=== PATIENT | male | born 1975 | race Caucasian/White ===

== ENCOUNTER 2024-11-03 21:34 | Emergency (ER) | payer OTHER, SELFPAY ==
[2024-11-03 21:37] VITALS: BP 147/87; PULSE 96; RESP 18; TEMP 36.8; O2SAT 96; BMI 33.7
[2024-11-03 21:58] LABS: Glucose, Whole Blood 364 mg/dL (60-115)
[2024-11-03 22:05] LABS: MANUAL DIFF FLAG NO
[2024-11-03 22:06] LABS: Basophils Absolute Auto 0.1 X10*3/uL (0.0-0.2); Basophils Percent Auto 0.6 % (0-2); Eosinophils Absolute Auto 0.1 X10*3/uL (0.0-0.4); Eosinophils Percent Auto 1.5 % (0-4); Hematocrit 45.9 % (42.0-52.0); Hemoglobin 16.8 g/dl (14.0-18.0); Imm Gran Abs Auto 0.03 X10*3/uL (0.00-0.03); Imm Gran Pct Auto 0.3 % (0.0-0.4); Lymphocytes Absolute Auto 3.6 X10*3/uL (1.2-4.9); Lymphocytes Percent Auto 38.2 % (20-40); Mean Corpuscular HGB Conc 36.6 g/dl (31.0-36.0); Mean Corpuscular Hemoglobin 30.9 pg (27.0-33.0); Mean Corpuscular Volume 84.4 fL (80.0-98.0); Mean Platelet Volume 9.5 fL (9.4-12.4); Monocytes Absolute Auto 1.2 X10*3/uL (0.1-1.2); Monocytes Percent Auto 12.7 % (2-11); Neutrophils Absolute Auto 4.5 x10*3/uL (2.0-8.3); Neutrophils Percent Auto 46.7 % (45-73); Platelet Count 395 X10*3/uL (160-400); Red Blood Count 5.44 X10*6/uL (4.60-5.80); Red Cell Distribution Width 12.4 % (11.0-16.0); White Blood Count 9.5 X10*3/uL (4.8-10.8)
[2024-11-03 22:11] VITALS: BP 134/89; PULSE 87; RESP 13; TEMP 36.7; O2SAT 95
[2024-11-03 22:17] LABS: Appearance Urine Clear; Color Urine Yellow; Glucose Urine UA >=1000 mg/dL (Negative); Leukocyte Esterase Urine Negative (Negative); Nitrite Urine Negative (Negative); Specific Gravity - Urine >= 1.030 (1.005-1.025); UMIC TRIGGER UACC YES; Urine Blood Negative (Negative); Urine Ketones Negative (Negative); Urine Protein Negative (Neg-Trace)
--- NOTE | 2024-11-03 22:20 | ED_ITS ---
HPI - General Adult General Chief complaint: Recheck/Abnormal Lab/Rx Stated complaint: High blood sugar over 400, drinking alcohol Time Seen by Provider: 11/03/24 22:10 History of Present Illness ED Provider: Dr. Mitchell HPI narrative: 49 y/o M patient; PMH T2DM, alcohol use disorder, bipolar disorder; presents from home reporting recent alcohol overuse. The patient states he tried to detox at home over the last 6 hours but has not been able to. He endorses a significant number of recent life stressors but denies suicidal or homicidal ideation. Related Data Home Medications ?Medication ?Instructions ?Recorded ?Confirmed albuterol sulfate 90 mcg/actuation inhalation 11/04/24 aerosol inhaler atorvastatin 20 mg tablet 20 mg PO DAILY 11/04/24 11/04/24 empagliflozin 10 mg tablet 10 mg PO DAILY 11/04/24 11/04/24 (Jardiance) escitalopram oxalate 20 mg tablet 20 mg PO DAILY 11/04/24 11/04/24 fluticasone 250 mcg-salmeterol 50 1 ea inhalation BID 11/04/24 11/04/24 mcg/dose blistr powdr for inhalation insulin glargine 100 unit/mL (3 unit subcut 11/04/24 mL) subcutaneous pen (Basaglar KwikPen U-100 Insulin) lisinopril 20 mg tablet 20 mg PO DAILY 11/04/24 11/04/24 metoprolol succinate 100 mg 100 mg PO DAILY 11/04/24 11/04/24 tablet,extended release 24 hr Allergies Allergy/AdvReac Type Severity Reaction Status Date / Time Iodinated Contrast Media AdvReac Rash Verified 11/03/24 21:44 [Contrast Dye] Review of Systems 2 Review of Systems: Yes all other systems are reviewed and are negative [facility] Past Medical History Attestation statement: The following information was validated with the patient. Source: unable to obtain Social History Social History Alcohol intake: current Alcohol intake frequency: 3 or more drinks per day Alcohol type: beer and hard liquor Smoked in Last 30 Days: No Use of substances other than those prescribed or required for medical reasons: No Advance Directives: No Advance Directives Information Provided: Yes Physical Exam ED Vital Signs: Vital Signs - 24 hr 11/03/24 21:37 11/03/24 22:11 11/04/24 00:00 Temperature 98.3 F 98.1 F 98.1 F Pulse Rate 96 87 79 Respiratory Rate 18 13 14 Blood Pressure 147/87 H 134/89 127/73 Pulse Oximetry 96 95 99 Oxygen Delivery Method Room Air Room Air Room Air 11/04/24 01:42 Temperature 98.1 F Pulse Rate 85 Respiratory Rate 12 Blood Pressure 117/63 Pulse Oximetry 95 Oxygen Delivery Method Room Air BMI result Body Mass Index 33.7 Patient is afebrile, normotensive and hemodynamically stable. Const General: cooperative HENMT Head: Yes normal to inspection and Yes atraumatic Eyes General: appearance normal, both eyes and all related structures Pupils: Equal, round and reactive pupils present EOM: EOMs intact bilaterally Neck Neck: Yes normal visual inspection, Yes full ROM, Yes supple and No tender Chest Chest palpation & inspection: normal inspection of the chest and normal palpation of entire chest wall Resp Effort & Inspection: normal respiratory effort, able to speak in complete sentences, no cough and no respiratory distress Auscultation: clear to auscultation bilaterally Cardio Rate: regular rate Rhythm: regular rhythm Peripheral pulses: Peripheral pulses 2+ throughout GI Inspection: Yes normal to inspection, No Abdominal wall edema and No distended Palpation (GI): Soft to palpation, not firm, nontender, no guarding and not rigid Auscultation: normal bowel sounds Back/Spine/Pelvis Back: No back tenderness Neuro Cranial nerves: Yes Equal, round and reactive pupils present Course Course Course Narrative: Patient is afebrile and hemodynamically stable. Will obtain crisis laboratory studies as well as studies to assess for T2DM complications such as HHS/DKA. Labs reviewed. No leukocytosis. Bicarb 18. Anion gap 21. Glucose 364. Transaminitis. UA without ketones, + glucouria. Utox negative. Betahydroxybuterate is within acceptable limits. Ethanol 208. Placed on CIWA. Initial CIWA 11. Patient is demonstrating hyperglycemia likely 2/2 to dehydration and alcohol use, no evidence of DKA or HHS. Provided 2L IVF. Started on high dose thiamine and multivitamin. Provided librium. Reevaluation(s) Reevaluation #1: Provided 2nd dose of librium approx 1 hour after 1st. Glucose checked after 2L IVF, improved appropriately to 201. Provided 3rd L IVF. BMP repeated after 2L IVF, anion gap improved to 17. Diet ordered. Patient's home medications ordered. Plan: Transition care to Dr. Mattson pending continued improvement in condition Condition: Stable Medications Administered Discontinued Medications Generic Name Dose Route Start Last Admin Trade Name Miki PRN Reason Stop Dose Admin Chlordiazepoxide HCl 50 mg 11/03/24 22:28 11/03/24 22:54 Chlordiazepoxide Hcl 25 Mg Capsule PO 11/03/24 22:29 50 mg ONCE ONE Administration Chlordiazepoxide HCl 50 mg 11/03/24 23:38 11/03/24 23:52 Chlordiazepoxide Hcl 25 Mg Capsule PO 11/03/24 23:39 50 mg ONCE ONE Administration Sodium Chloride 1,000 mls @ 999 mls/hr 11/03/24 22:15 11/03/24 23:58 Ns IV 11/03/24 23:15 Infused .Q1H1M TRACY Infusion Sodium Chloride 1,000 mls @ 999 mls/hr 11/03/24 22:15 11/03/24 23:59 Ns IV 11/03/24 23:15 Infused .Q1H1M TRACY Infusion Thiamine HCl 500 mg/ Sodium 105 mls @ 210 mls/hr 11/03/24 22:23 11/03/24 23:00 Chloride IV 11/03/24 22:52 Infused ONCE ONE Infusion Sodium Chloride 1,000 mls @ 999 mls/hr 11/04/24 00:15 11/04/24 01:42 Ns IV 11/04/24 01:15 Infused .Q1H1M TRACY Infusion Multivitamins/Vitamin C 1 tab 11/03/24 22:28 11/03/24 22:54 Multivitamin Tablet PO 11/03/24 22:29 1 tab ONCE ONE Administration Ondansetron HCl 4 mg 11/03/24 22:25 11/03/24 22:29 Ondansetron Hcl 4 Mg/2 Ml Vial IVPUSH 11/03/24 22:26 4 mg ONCE ONE Administration Medical Decision Making Medical Decision Making MDM Narrative: Patient has refused to stay in the ER anion gap closed taking p.o. fluids will discharge patient home Lab Data 11/03/24 22:00 11/04/24 00:27 Labs: Lab Results 11/03/24 11/03/24 11/03/24 Range/Units 21:54 22:00 22:11 WBC 9.5 (4.8-10.8) X10*3/uL RBC 5.44 (4.60-5.80) X10*6/uL Hgb 16.8 (14.0-18.0) g/dl Hct 45.9 (42.0-52.0) % MCV 84.4 (80.0-98.0) fL MCH 30.9 (27.0-33.0) pg MCHC 36.6 H (31.0-36.0) g/dl RDW 12.4 (11.0-16.0) % Plt Count 395 (160-400) X10*3/uL MPV 9.5 (9.4-12.4) fL Immature Gran % (Auto) 0.3 (0.0-0.4) % Neut % (Auto) 46.7 (45-73) % Lymph % (Auto) 38.2 (20-40) % Morrill % (Auto) 12.7 H (2-11) % Eos % (Auto) 1.5 (0-4) % Baso % (Auto) 0.6 (0-2) % Lymph # (Auto) 3.6 (1.2-4.9) X10*3/uL [place]rill # (Auto) 1.2 (0.1-1.2) X10*3/uL Eos # (Auto) 0.1 (0.0-0.4) X10*3/uL Baso # (Auto) 0.1 (0.0-0.2) X10*3/uL Abs Immat Gran (auto) 0.03 (0.00-0.03) X10*3/uL Absolute Neuts (auto) 4.5 (2.0-8.3) x10*3/uL Absolute Nucleated RBC 0.000 (0.0-0.012) X10*3/uL Nucleated RBC % (auto) 0.0 (0.0-0.2) /100WBC Sodium 131 L (135-145) mmol/L Potassium 4.5 (3.3-5.1) mmol/L Chloride 97 (96-108) mmol/L Carbon Dioxide 18 L (22-29) mmol/L Anion Gap 21 H (12-20) BUN 8 L (9-16) mg/dL Creatinine 0.95 (0.5-1.4) mg/dL Estim Creat Clear Calc 135.5 Estimated GFR > 60 POC Glucose 364 H* (60-115) mg/dL Random Glucose 346 H (60-115) mg/dL Calcium 8.8 (8.4-10.2) mg/dL Magnesium 2.1 (1.6-2.6) mg/dL Total Bilirubin 2.3 H (0.0-1.0) mg/dL AST 45 H (5-37) U/L ALT 63 H (0-40) U/L Alkaline Phosphatase 95 (39-117) U/L Total Protein 7.6 (6.5-8.0) g/dL Albumin 4.4 (3.5-5.0) g/dL Lipase 23 (8-78) U/L Beta-Hydroxybutyrate 0.18 (0.02-0.27) mmol/L Urine Color Yellow Urine Appearance Clear Urine pH 6.0 (5.0-9.0) Ur Specific [place] >= 1.030 H (1.005-1.025) Urine Protein Negative (Neg-Trace) mg/dL Urine Glucose (UA) >=1000 H (Negative) mg/dL Urine Ketones Negative (Negative) mg/dL Urine Blood Negative (Negative) Urine Nitrite Negative (Negative) Ur Leukocyte Esterase Negative (Negative) Urine RBC 0-2 (0-2) /HPF Urine WBC 0-5 (0-5) /HPF Ur Squamous Epith Cells 0-2 (0-2) /HPF Urine Bacteria None Seen (None Seen) Hyaline Casts 0-2 (0-2) /LPF Urine Opiates Screen Not Detected (Not Detect) Ur Buprenorphine Scrn Not Detected (Not Detect) ng/mL Ur Oxycodone Screen Not Detected (Not Detect) ng/mL Urine Methadone Screen Not Detected (Not Detect) ng/mL Urine Fentanyl Screen Not Detected (Not Detect) Ur Barbiturates Screen Not Detected (Not Detect) Ur Phencyclidine Scrn Not Detected (Not Detect) Ur Amphetamines Screen Not Detected (Not Detect) U Benzodiazepines Scrn Not Detected (Not Detect) Urine Cocaine Screen Not Detected (Not Detect) U Marijuana (THC) Screen Not Detected (Not Detect) Ethyl Alcohol 208 mg/dL 11/03/24 11/04/24 Range/Units 23:56 00:27 WBC (4.8-10.8) X10*3/uL RBC (4.60-5.80) X10*6/uL Hgb (14.0-18.0) g/dl Hct (42.0-52.0) % MCV (80.0-98.0) fL MCH (27.0-33.0) pg MCHC (31.0-36.0) g/dl RDW (11.0-16.0) % Plt Count (160-400) X10*3/uL MPV (9.4-12.4) fL Immature Gran % (Auto) (0.0-0.4) % Neut % (Auto) (45-73) % Lymph % (Auto) (20-40) % [place] % (Auto) (2-11) % Eos % (Auto) (0-4) % Baso % (Auto) (0-2) % Lymph # (Auto) (1.2-4.9) X10*3/uL [place] # (Auto) (0.1-1.2) X10*3/uL Eos # (Auto) (0.0-0.4) X10*3/uL Baso # (Auto) (0.0-0.2) X10*3/uL Abs Immat Gran (auto) (0.00-0.03) X10*3/uL Absolute Neuts (auto) (2.0-8.3) x10*3/uL Absolute Nucleated RBC (0.0-0.012) X10*3/uL Nucleated RBC % (auto) (0.0-0.2) /100WBC Sodium 133 L (135-145) mmol/L Potassium 4.7 (3.3-5.1) mmol/L Chloride 102 (96-108) mmol/L Carbon Dioxide 19 L (22-29) mmol/L Anion Gap 17 (12-20) BUN 8 L (9-16) mg/dL Creatinine 0.78 (0.5-1.4) mg/dL Estim Creat Clear Calc 165.0 Estimated GFR > 60 POC Glucose 201 H (60-115) mg/dL Random Glucose 203 H (60-115) mg/dL Calcium 8.2 L D (8.4-10.2) mg/dL Magnesium (1.6-2.6) mg/dL Total Bilirubin (0.0-1.0) mg/dL AST (5-37) U/L ALT (0-40) U/L Alkaline Phosphatase (39-117) U/L Total Protein (6.5-8.0) g/dL Albumin (3.5-5.0) g/dL Lipase (8-78) U/L Beta-Hydroxybutyrate (0.02-0.27) mmol/L Urine Color Urine Appearance Urine pH (5.0-9.0) Ur Specific [place] (1.005-1.025) Urine Protein (Neg-Trace) mg/dL Urine Glucose (UA) (Negative) mg/dL Urine Ketones (Negative) mg/dL Urine Blood (Negative) Urine Nitrite (Negative) Ur Leukocyte Esterase (Negative) Urine RBC (0-2) /HPF Urine WBC (0-5) /HPF Ur Squamous Epith Cells (0-2) /HPF Urine Bacteria (None Seen) Hyaline Casts (0-2) /LPF Urine Opiates Screen (Not Detect) Ur Buprenorphine Scrn (Not Detect) ng/mL Ur Oxycodone Screen (Not Detect) ng/mL Urine Methadone Screen (Not Detect) ng/mL Urine Fentanyl Screen (Not Detect) Ur Barbiturates Screen (Not Detect) Ur Phencyclidine Scrn (Not Detect) Ur Amphetamines Screen (Not Detect) U Benzodiazepines Scrn (Not Detect) Urine Cocaine Screen (Not Detect) U Marijuana (THC) Screen (Not Detect) Ethyl Alcohol mg/dL Independent Interpretation I performed an independent interpretation of an: EKG Interpretation: NSR 91BPM with normal intervals, without ischemic changes Discharge Plan Discharge Clinical Impression: Hyperglycemia, Alcohol intoxication Patient Disposition: Home, Self-Care Instructions: Alcohol Withdrawal (DC) Additional Instructions: Stop drinking alcohol Follow with detox Prescriptions: No Action fluticasone propion-salmeterol 250-50 mcg/dose blister with device 1 ea inhalation BID atorvastatin 20 mg tablet 20 mg PO DAILY lisinopril 20 mg tablet 20 mg PO DAILY metoprolol succinate 100 mg tablet extended release 24 hr 100 mg PO DAILY albuterol sulfate 90 mcg/actuation HFA aerosol inhaler inhalation escitalopram oxalate 20 mg tablet 20 mg PO DAILY insulin glargine [Basaglar KwikPen U-100 Insulin] 100 unit/mL (3 mL) insulin pen subcut Jardiance 10 mg tablet 10 mg PO DAILY Print Language: Belarusian
[2024-11-03 22:22] LABS: Alanine Aminotransferase 63 U/L (0-40); Albumin Level 4.4 g/dL (3.5-5.0); Alkaline Phosphatase 95 U/L (39-117); Anion Gap 21 (12-20); Aspartate Amino Transferase 45 U/L (5-37); Bilirubin Total 2.3 mg/dL (0.0-1.0); Blood Urea Nitrogen 8 mg/dL (9-16); Calcium 8.8 mg/dL (8.4-10.2); Carbon Dioxide 18 mmol/L (22-29); Chloride 97 mmol/L (96-108); Creatinine Clr Calc Pharmacy 135.5; Estimated Glomerular Filt Rate > 60; Ethanol 208 mg/dL; Glucose Random 346 mg/dL (60-115); Potassium 4.5 mmol/L (3.3-5.1); Sodium 131 mmol/L (135-145); Total Protein 7.6 g/dL (6.5-8.0)
[2024-11-03 22:22] LABS: Bacteria Urine None Seen (None Seen); Hyaline Casts Urine 0-2 /LPF (0-2); RBC Urine 0-2 /HPF (0-2); Squamous Epithelial Cell Urine 0-2 /HPF (0-2); WBC Urine 0-5 /HPF (0-5)
[2024-11-03] MEDS: 0.9 % Sodium Chloride 1,000 ML 999 ML IV ×2 (22:23→22:24)
--- NOTE | 2024-11-03 22:25 | ECG_ITS ---
Test Reason : N/V, HIGH BLOOD SUGAR Blood Pressure : */* mmHG Vent. Rate : 91 BPM Atrial Rate : 91 BPM P-R Int : 156 ms QRS Dur : 76 ms QT Int : 366 ms P-R-T Axes : 47 -6 28 degrees QTcB Int : 450 ms Normal sinus rhythm Low voltage QRS Borderline ECG No previous ECGs available Referred By: Shreya Mitchell Electronically Signed By: Cole Cerda
[2024-11-03 22:27] LABS: Amphetamine Screen Urine Not Detected (Not Detect); Barbiturates, Urine Not Detected (Not Detect); Benzodiazepines Screen Urine Not Detected (Not Detect); Buprenorphine Scr Not Detected (Not Detect); Cannabinoid Screen Urine Not Detected (Not Detect); Cocaine Screen Urine Not Detected (Not Detect); Fentanyl, urine Not Detected (Not Detect); Methadone Screen, Urine Not Detected (Not Detect); Opiate Screen Urine Not Detected (Not Detect); Oxycodone Screen Urine Not Detected (Not Detect); Phencyclidine Screen Urine Not Detected (Not Detect)
[2024-11-03] MEDS: Thiamine HCL 500 MG in 0.9 % Sodium Chloride 100 ML 210 MG IV (22:29)
[2024-11-03] MEDS: ondansetron HCL 4 MG/2 ML VIAL IVPUSH (22:29)
[2024-11-03 22:42] LABS: Lipase 23 U/L (8-78); Magnesium 2.1 mg/dL (1.6-2.6)
[2024-11-03] MEDS: Multivitamin TABLET 1 TAB PO (22:54)
[2024-11-03] MEDS: chlordiazePOXIDE HCl 25 MG CAPSULE 50 MG PO ×2 (22:54→23:52)
[2024-11-03 23:16] LABS: Beta-Hydroxybutyrate 0.18 mmol/L (0.02-0.27)
[2024-11-04] VITALS: BP 127/73; PULSE 79; RESP 14; TEMP 36.7; O2SAT 99
[2024-11-04 00:11] LABS: Glucose, Whole Blood 201 mg/dL (60-115)
[2024-11-04] MEDS: 0.9 % Sodium Chloride 1,000 ML 999 ML IV (00:18)
[2024-11-04 00:51] LABS: Anion Gap 17 (12-20); Blood Urea Nitrogen 8 mg/dL (9-16); Calcium 8.2 mg/dL (8.4-10.2); Carbon Dioxide 19 mmol/L (22-29); Chloride 102 mmol/L (96-108); Estimated Glomerular Filt Rate > 60; Glucose Random 203 mg/dL (60-115); Potassium 4.7 mmol/L (3.3-5.1); Sodium 133 mmol/L (135-145)
--- OUTSIDE RECORDS SUMMARY | 2024-11-04 01:02 | XMS_ITS | Encounter Summary ---
Author Organization [facility] Address [address] [place] [address] Care Team Providers Care Money Market Clerk Name Role Phone Artie Grant MD Primary Care Provider [phone] Artie Grant MD Unavailable [phone] Reason for Visit * Reason Comments E-prescribing Refill Request Encounter Details Date Type Department Care Team (Late Contact Info) Description [address] [address] Artie Grant MD [address] [place] [phone] E-prescribing Refill Request Social History Tobacco Use Types Packs/Day Years Used Date Smoking Tobacco: Never Smokeless Tobacco: Never Alcohol Use Standard Drinks/Week Comments Yes 0 (1 standard drink = 0.6 oz pur e alcohol) Social PHQ-2 Answer Date Recorded PHQ-2 Score 0 09/11/2023 Sex and Gender Information Value Date Recorded Sex Assigned at Male 2024 10:17 AM EST Legal Sex Male 10:13 AM EST Gender Identity Male 2024 10:17 AM EST Sexual Orientation Straight 2024 10 :17 AM EST 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 documented as of this encounter Goals Goal Patient Goal Type Associated Problems Recent Progress Patient-Stated? Author Blood Pressure < 140/90 Blood Pressure 98/72(2024 8:44 AM EDT) Brenda Redd, RN Note: Above is your goal for blood pressure control. You may be able to prevent, reduce or eliminate the medication required for your blood pressure by regular measurement of your blood pressure at home, since home readings are often more reliable than measurements at the doctor? s office. You can also improve your blood pressure by getting regular exercise, keeping a normal weight, reducing your sodium/salt intake to 2000 mg/day, reducing caffeine and by limiting your alcohol intake. Men should limit consumption to no more than 2 drinks per day (beer, wine, or mixed drinks) and women should limit to one drink per day. Follow the DASH diet, a diet low in fat, cholesterol, red meat, and sweets. It emphasizes fruits, vegetables, and low-fat dairy foods. The DASH diet also includes whole-grain products, fish, poultry, and nuts. HEMOGLOBIN A1C % < 7 Result Component 6.1(07/11/19 7:28 AM EST) Brenda Redd, RN Note: Above is your goal for sugar control. Your risk for future diabetic complications such as blindness and amputation can be reduced by following your diabetic diet plan, and paying careful attention to self-monitoring your blood sugar and blood pressure at home. Please plan to check your blood sugar and blood pressure at the frequency suggested, and bring these numbers with you to your next scheduled visit. If you have difficulty reaching the goals which you have set for your diabetes your PCP can refer to one of our diabetes self-management support programs. A fasting blood sugar below 120 is ideal. documented as of this encounter Visit Diagnoses Not on filedocumented in this encounter Care Teams Money Market Clerk Relationship Specialty Start Date End Date Artie Grant MD [address] [place] [address] PCP - General 06/14/23 Artie Grant MD [address] [place] [address] PCP - Backup PCP Family Medicine 08/10/23 documented as of this encounter
--- OUTSIDE RECORDS SUMMARY | 2024-11-04 01:02 | XMS_ITS | Encounter Summary ---
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 on file Not on fi le documented as of this encounter Plan of Treatment Upcoming Encounters Date Type Department Care Team (Late st Contact Info) Description 04/09/2025 8:00 AM EDT Office Visit [facility] [address] [place] [phone] Artie Grant MD [address] [place] [address] Return for 6 month f/u [...] on filedocumented in this encounter Care Teams Physical Therapy Technician Relationship Specialty Start Date End Date Artie Grant MD [address] [place] [address] PCP - General 06/14/23 Artie Grant MD [address] [place] [phone] PCP - Backup PCP Family Medicine 08/10/23 documented as of this encounter
--- OUTSIDE RECORDS SUMMARY | 2024-11-04 01:02 | XMS_ITS | Encounter Summary ---
Author Organization [facility] Address [address] [place] [address] Care Team Providers Care Stock Control Clerk Name Role Phone Artie Grant MD Primary Care Provider [phone] Artie Grant MD Unavailable [phone] Reason for Visit * Reason Comments E-prescribing Refill Request Encounter Details Date Type Department Care Team (Late Contact Info) Description 10/30/2024 Refill [facility] [address] [place] [address] Artie Grant MD [address] [place] [address] E-prescribing Refill Request Social History Tobacco Use Types Packs/Day Years Used Date Smoking Tobacco: Never Smokeless Tobacco: Never Alcohol Use Standard Drinks/Week Comments Not Currently 0 (1 standard drink = 0.6 oz pur e alcohol) Social PHQ-2 Answer Date Recorded PHQ-2 Score 0 10/07/2024 PHQ-9 Answer Date Recorded PHQ-9 Score 0 10/07/2024 Sex and Gender Information Value Date Recorded Sex Assigned at Male 2024 10:17 AM EST Legal Sex Male 10:13 AM EST Gender Identity Male 2024 10:17 AM EST Sexual Orientation Straight 2024 10 :17 AM EST 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 on file Not on fi le documented as of this encounter Plan of Treatment Upcoming Encounters Date Type Department Care Team (Late Contact Info) Description 04/09/2025 8:00 AM EDT Office Visit [facility] [address] [place] [address] Artie Grant MD [address] [place] [phone] Return for 6 month f/u [...] documented as of this encounter Visit Diagnoses Diagnosis Moderate asthma, unspecified whether complicated, unspecified whether persistent (HHS) documented in this encounter Care Teams Stock Control Clerk Relationship Specialty Start Date End Date Artie Grant MD [address] [place] [phone] PCP - General 06/14/23 Artie Grant MD [address] [place] [phone] PCP - Backup PCP Family Medicine 08/10/23 documented as of this encounter
--- OUTSIDE RECORDS SUMMARY | 2024-11-04 01:02 | XMS_ITS | Encounter Summary ---
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
--- OUTSIDE RECORDS SUMMARY | 2024-11-04 01:02 | XMS_ITS | Continuity of Care Document ---
Author Organization [facility] Address [address] [place] [address] Phone Care Team Providers Care Cardiopulmonary Physical Therapist Name Role Phone Corrie Cheng DO Unavailable Unavailabl e Allergies, Adverse Reactions, Alerts Substance Reaction Status Criticality metformin Increased lactic acid level Active No Information HYDROXYZINE HCL Active No Informati on ioversol Active No Information Medications Medication Instructions Dosage Effective Dates (start - stop) Status Comments Ativan 1 mg tablet TAKE 1 TABLET BY MOUTH DAILY NEEDED - Active ADVAIR 250-50 DISKUS INHALE ONE PUFF BY MOUTH TWICE A DAY APPROXIMATELY 12 HOURS APART. TAKE AT THE SAME TIME EACH DAY. - Active ALBUTEROL HFA 90 MCG INHALER INHALE 1 PUFF BY MOUTH TWICE A DAY NEEDED - Active atorvastatin 20 mg tablet TAKE ONE TABLET BY MOUTH DAILY - Active metoprolol succinate ER 100 mg tablet,extended release 24 hr TAKE ONE TABLET BY MOUTH DAILY - Active lisinopril 20 mg tablet take 1 tablet by oral route every day 20 MG - Active Lexapro 20 mg tablet TAKE ONE TABLET BY MOUTH DAILY - Active Ozempic 1 mg/dose (4 mg/3 mL) subcutaneous pen injector inject (1MG) by subcutaneous route every week on the same day of each week 1 MG - Active aspirin 81 mg tablet,delayed release take 1 tablet by oral route every day 81 MG - Active Jardiance 25 mg tablet take 1 tablet by oral route every day in the morning 25 MG - Active Prilosec OTC 20 mg tablet,delayed release take 1 tablet by mouth once daily as needed for acid reflux - Active loratadine 10 mg disintegrating tablet take 1 tablet by oral route every day and place on top of the tongue where it will dissolve, then swallow 10 MG - Active VITAMIN D3 (unknown strength) Not Available - Active Procedures Procedure Date Offic/outpt E&m Estab Mod-hi 2 Venipuncture Immuniz Admin; 1/combo Vacc/to Flu Vac-Quadrivalent Preservative Free 0 .5ml/dose Hgb; Glycated Comp Metabolic Panel Vitamin D 25 Hydroxy Includes Fraction(s ) If Performed Offic/outpt E&m Estab Mod-hi 2 Venipuncture Hgb; Glycated Lipid Panel Albumin; Urin Microalbumin Porter Creatinine; Other Source Ua Dip Stick/tablet; Auto W/mi General Health Panel Venipuncture Init Preven E&m New Pt; 40-64 Yr 2022 Hgb; Glycated Albumin; Urin Microalbumin Porter Creatinine; Other Source Lipid Panel General Health Panel Offic/outpt E&m Estab Mod-ut 4 Venipuncture Offic/outpt E&m Estab Mod-hi 2 Hgb; Glycated Vitamin D 25 Hydroxy Includes Fraction(s ) If Performed Lipid Panel Comp Metabolic Panel Offic/outpt E&m Estab Mod-hi 2 Offic/outpt E&m Estab Mod-hi 2 Telemedic ine Offic/outpt E&m Estab Mod-hi 2 22 Venipuncture Hgb; Glycated Albumin; Urin Microalbumin Porter 22 Creatinine; Other Source Lipid Panel Comp Metabolic Panel Bld Ct; Hg/pltlt Ct Auto/compl Thyroid Stim Hormone Immuniz Admin; 1/combo Vacc/to 21 Flu Vac-Quadrivalent Preservative Free 0 .5ml/dose Offic/outpt E&m New Mod-hi 60 1 Venipuncture Vitamin D 25 Hydroxy Includes Fraction(s ) If Performed Folic Acid; Serum Offic/outpt E&m Estab Mod-hi 2 12 General Health Panel Lipid Panel Ua Dip Stick/tablet; Auto W/mi 12 Cyanocobalamin General Health Panel Offic/outpt E&m New Mod-hi 45 2 Advance Directives Directive Yes / No Effective Date File Name No Information Encounters Encounter Description Practice Location Reason(s) For Visit Diagnoses Date Provider Providers Copied on Encounter [facility], [address], [place], [place], [id number] , [place] tel: [phone] [facility] Type 2 diabetes mellitus with other specified complication, unspecified whether halfway insulin use 4 Prosper [place]. [address], [address] [facility], [place], [place], [id number], [place]. tel:[phone] [facility], [address], [place], [place], [id number] , [place] tel: [phone] [facility] No Information 3 Prosper [place]. [address], [address] [facility], [place], [place], [address], [place]. tel:[phone] Medical [facility], [address], [place], [place], [id number] , [place] tel: [phone] [facility] No Information 3 Prosper [place]. [address], [place] [address], [place], [place], [id number], [place]. [phone] Offic/outpt E&m Estab Mod-hi 2 Medical [facility], [address], [place], [place], [id number] , [place] tel: [phone] [facility] med refill (chief complaint) HTN (hypertension), benignControlled type 2 diabetes mellitus with hypoglycemia, without long-term current use of insulinAnxietyVit snow D deficiencyEncntr for general adult medical exam w/o abnormal findings 3 Prosper [place]. [address], [address], [id number], [place]. [phone] Referring Provider: Corrie Cheng, [address] [address], [place], [address]. tel:[phone] [facility], [address], [place], [place], [id number] , [place] tel: [phone] [facility] No Information Mar- 3 Sacha Crespo. [address] [place] [address], [place] [address] [place] [address], [id number], [place]. tel:[phone] [facility], [address], [place], [place], [id number] , [place] tel: [phone] [facility] No Information 0 3 Prosper [place]. [address], [address], [id number], [place]. tel:[phone] [facility], [address], [place], [place], [address] , [place] tel: [phone] [facility] No Information 0 3 Prosper [place]. [address], [address], [place], [place], [id number], [place]. tel:[phone] Medical [facility], [address], [place], [id number] , [place] tel: [phone] [facility] No Information Gilberto-2 3 Prosper [place]. [address], [place] [address], [place], [place], [address], [place]. [phone] Offic/outpt E&m Estab Mod-hi 2 Medical [facility], [address], [place], [address] , [place] tel: [phone] [facility] 3 months F/U (chief complaint) Type 2 diabetes mellitus with other specified complication, unspecified whether halfway insulin useHTN (hypertension), benignAnxietyExtr insic asthma, unspecified asthma severity, unspecified whether complicated, unspecified whether persistent 3 Prosper [place]. [address], [address] [facility], [place], [place], [id number], [place]. [phone] Referring Provider: Corrie Cheng, [address] [place] [address], [place], [address]. tel:[phone] Init Preven E&m New Pt; 40-64 Yr Medical [facility], [address], [place], [id number] , [place] tel: [phone] [facility] CE (chief complaint) Encounter for general adult medical examination without abnormal findingsEssential (primary) hypertensionExtri nsic asthma, unspecified asthma severity, unspecified whether complicated, unspecified whether persistentColon cancer screeningParoxysm al atrial fibrillationGastr oesophageal reflux disease without esophagitisType 2 diabetes mellitus with other specified complication, without long-term current use of insulin 3 Humaira Moreira. [address], [place], [place], [address], [place]. tel:[phone] Referring Provider: Corrie Cheng, [address] [place] [address], [address]. tel:[phone] Offic/outpt E&m [address], [address], [place], [place], [address] , [place] tel: [phone] [facility] f/u (chief complaint) Severe alcohol use disorderHTN (hypertension), benignAtrial fibrillation, unspecified typeGastroesophag eal reflux disease, unspecified whether esophagitis presentAnxietyMix ed hyperlipidemiaTyp e 2 diabetes mellitus with hyperglycemia, without long-term current use of insulin 2 James Brooks. [address] [place] [address], [id number], [place]. tel:[phone] Referring Provider: Corrie Cheng, [address], [address]. tel:[phone] Offic/outpt E&m [address], [address], [place], [place], [id number] , [place] tel: [phone] [facility] F/U (chief complaint) Controlled type 2 diabetes mellitus with hypoglycemia, without long-term current use of insulinHTN (hypertension), benignRecurrent major depressive disorder, in partial remissionExtrinsi c asthma without complication, unspecified asthma severity, unspecified whether persistentGastroe sophageal reflux disease, unspecified whether esophagitis presentVitamin D deficiencyAnnual physical exam 2 Sacha Crespo. [address] , [facility] [address], [place], [place], [id number], [place]. tel:[phone] Referring Provider: Corrie Cheng, [address] [place] [address], [place], [address]. tel:[phone] Offic/outpt E&m Estab [address], [address], [place], [address] , [place] tel: [phone] [facility] 1 month follow up (chief complaint) HTN (hypertension), benignAnxietyRecu rrent major depressive disorder, in partial remission 2 Pipo Ohara. [address], [place], [place], [id number], [place]. tel:[phone] Referring Provider: Mayda Foss, [address], [place], [address]. tel:[phone] Offic/outpt E&m [facility] 2 Telemedicine Medical [facility], [address], [place], [id number] , [place] tel: [phone] [facility] med refill (chief complaint) Controlled type 2 diabetes mellitus with hypoglycemia, without long-term current use of insulinHTN (hypertension), benignAnxietyMixe d hyperlipidemiaAtr ial fibrillation, unspecified typeGastroesophag eal reflux disease, unspecified whether esophagitis present 2 James Brooks. [address] [facility], [place], [place], [id number], [place]. tel:[phone] Referring Provider: Mayda Foss, [address] [facility], [place], [address]. tel:[phone] Offic/outpt E&m [facility] 2 Medical [facility], [address], [place], [id number] , [place] tel: [phone] [facility] 3 month f/u (chief complaint) HTN (hypertension), benignRecurrent major depressive disorder, in partial remissionAnxietyC ontrolled type 2 diabetes mellitus with hypoglycemia, without long-term current use of insulin 2 Pipo Ohara. [address], [place], [place], [id number], [place]. tel:[phone] Referring Provider: Mayda Foss, [address], [place], [address]. tel:[phone] Medical [facility], [address], [place], [place], [id number] , [place] tel: [phone] [facility] HTN (hypertension), benignType 2 diabetes mellitus with other specified complication, without long-term current use of insulin 2 Pipo Ohara. [address], [place], [id number], [place]. tel:[phone] Referring Provider: Mayda Foss, [address] [place] [address], [place], [address]. tel:[phone] Offic/outpt E&m [facility] 60 [facility], [address], [place], [place], [id number] , [place] tel: [phone] [facility] Est. Care (chief complaint) Establishing care with new doctor, encounter forHTN (hypertension), benignUncontrolle d type 2 diabetes mellitus with hypoglycemia without comaType 2 diabetes mellitus with other specified complication, without long-term current use of insulinGastroesop hageal reflux disease without esophagitisMixed hyperlipidemiaAnx ietyRecurrent major depressive disorder, in partial remission 1 Pipo Ohara. [address] [place] [address], [place], [place], [id number], [place]. tel:[phone] Referring Provider: Mayda Foss, [address] [place] [address], [place], [address]. tel:[phone] Offic/outpt E&m [address], [address], [place], [place], [id number] , [place] tel: [phone] [place] HTN, BENIGNINSOMNIAOBE SITY,UNSPECIFIEDA F - ATRIAL FIBRILLATIONHIGH RISK MEDICATIONHYPERLI PIDEMIA, MIXEDDEFICIENCY,V ITAMIN [id number] D DEFICIENCY, UNSPECIFIEDLAB RESULT, ELEV. LIVER ENZYMESANEMIA, FOLATE DEFICIENCY 2 Annita Nguyễn. [address] [facility], [place], [address], [place]. tel:[phone] Referring Provider: Gopi Reeves, [address] [facility], [place], [address]. [phone] Offic/outpt E&m [facility] 45 [facility], [address], [place], [place], [id number] , [place] tel: [phone] [place] HTN, BENIGNGERDAF - ATRIAL FIBRILLATIONASTHM A, UNSPECIFIEDINSOMN IANEOPLASM, SKIN, UNCERT BEHAVIORASTHMA, EXTRINSICHIGH RISK MEDICATIONHYPERLI PIDEMIA, MIXEDDEFICIENCY,V ITAMIN [id number] D DEFICIENCY, UNSPECIFIED Oct-201 2 Annita Nguyễn. [address], [place], [address], [place]. tel:[phone] Referring Provider: Gopi Reeves, [address], [place], [address]. tel:[phone] Family History Family Member Type Diagnosis Age At Onset Brother Problem (finding) Spine injury Father Problem (finding) Diabetes Mother Problem (finding) TIAs Mother Problem (finding) Cancer of the Breast: m aternal Immunizations Vaccine Date Status Comments Flucelvax Quad (6 mos and up ) 0.5mL prefilled syringe, preservative-free administered Source: New Immuniza tion Record Flucelvax Quad (2yrs and up) 0.5mL prefilled syringe, preservative-free administered Source: New Immuniza tion Record COVID-19 Vaccine (Moderna) administered S ource: Source Unspecified PPSV23 (Pneumovax) administered Source: S ource Unspecified COVID-19 Vaccine (Moderna) administered S ource: Source Unspecified COVID-19 Vaccine (Moderna) administered S ource: Source Unspecified Tdap administered Source: Source Unspecified Payers Payer name Insurance type Covered democrat ID Authoriza tion(s) BCBS PPO/POS BL [id number] Cigna Open Access Plus CI [id number] Social History Type Description Quantity Date Captured Comments Alcohol Use Details Unknown Caffeine Use Details Unknown Tobacco Use Status No Information Smoking Status No Information Sex Male Chief Complaint And Reason For Visit No Information Reason For Referral Reason For Referral No Information Plan Of Treatment Date Type Action Status Goal Pneumococcal vaccine due Goal FIT-DNA. Due on due Goal Depression screening. Due on due Goal Influenza vaccine. Due on due Goal Preventative Exam. Due on due Goal Hepatitis C screening. Due o n due Goal GFR. Due on due Goal Hemoglobin A1C. Due on due Goal Foot exam. Due on due Goal Dilated eye exam. Due on Dec due Goal Urine microalbumin. Due on due Goal Lipid panel. Due on due Goal Pneumococcal vaccine due Goal Influenza vaccine. Due on due Goal Depression screening. Due on due Goal Hepatitis C screening. Due o n due Goal Preventative Exam. Due on due Goal FIT-DNA. Due on due Goal Foot exam. Due on due Goal GFR. Due on due Goal Lipid panel. Due on due Goal Hemoglobin A1C. Due on due Goal Dilated eye exam. Due on Dec due Goal Urine microalbumin. Due on due Goal Pneumococcal vaccine due Goal Influenza vaccine. Due on due Goal Hepatitis C screening. Due o n due Goal Preventative Exam. Due on due Goal FIT-DNA. Due on due Goal Depression screening. Due on due Goal Foot exam. Due on due Goal Lipid panel. Due on due Goal Dilated eye exam. Due on Dec due Goal Urine microalbumin. Due on due Goal Hemoglobin A1C. Due on due Goal GFR. Due on due Goal Pneumococcal vaccine due Goal Depression screening. Due on due Goal Preventative Exam. Due on due Goal Influenza vaccine. Due on due Goal Hepatitis C screening. Due o n due Goal FIT-DNA. Due on due Goal Lipid panel. Due on due Goal Hemoglobin A1C. Due on due Goal Dilated eye exam. Due on Dec due Goal GFR. Due on due Goal Foot exam. Due on due Goal Urine microalbumin. Due on due Goal Pneumococcal vaccine due Goal Depression screening. Due on due Goal Hepatitis C screening. Due o n due Goal FIT-DNA. Due on due Goal Influenza vaccine. Due on due Goal Preventative Exam. Due on due Goal Urine microalbumin. Due on due Goal Dilated eye exam. Due on Dec due Goal Foot exam. Due on due Goal Lipid panel. Due on due Goal Hemoglobin A1C. Due on due Goal GFR. Due on due Goal Hemoglobin A1C. Due on due Goal GFR. Due on due Goal Dilated eye exam. Due on Dec due Goal Lipid panel. Due on due Goal Urine microalbumin. Due on due Goal Foot exam. Due on due Goal Pneumococcal vaccine due Goal Influenza vaccine. Due on due Goal Depression screening. Due on due Goal Hepatitis C screening. Due o n due Goal FIT-DNA. Due on due Goal Preventative Exam. Due on due Goal Hepatitis C screening. Due o n due Goal Depression screening. Due on due Goal Influenza vaccine. Due on due Goal Preventative Exam. Due on due Goal FIT-DNA. Due on due Goal Foot exam. Due on due Goal Lipid panel. Due on due Goal Hemoglobin A1C. Due on due Goal GFR. Due on due Goal Urine microalbumin. Due on due Goal Dilated eye exam. Due on Dec due Goal Pneumococcal vaccine due Goal Influenza vaccine. Due on due Goal Pneumococcal vaccine due Goal Colonoscopy. Due on due Goal Depression screening. Due on due Goal FIT. Due on due Goal Hepatitis C screening. Due o n due Goal Preventative Exam. Due on due Goal Dilated eye exam. Due on Dec due Goal Lipid panel. Due on due Goal Hemoglobin A1C. Due on due Goal Foot exam. Due on due Goal Urine microalbumin. Due on due Goal GFR. Due on due Goal Pneumococcal vaccine due Goal Preventative Exam. Due on Oc due Goal Hepatitis C screening. Due o n due Goal Colonoscopy. Due on due Goal Depression screening. Due on due Goal Influenza vaccine. Due on Oc due Goal FIT. Due on due Goal FIT-DNA. Due on due Goal Urine microalbumin. Due on due Goal Dilated eye exam. Due on Dec due Goal Lipid panel. Due on due Goal Foot exam. Due on due Goal GFR. Due on due Goal Pneumococcal vaccine due Goal Depression screening. Due on due Goal Preventative Exam. Due on due Goal Influenza vaccine. Due on due Goal Urine microalbumin. Due on due Goal Hemoglobin A1C. Due on due Goal Foot exam. Due on due Goal GFR. Due on due Goal Dilated eye exam. Due on Dec due Goal Lipid panel. Due on 023 due Goal Pneumococcal vaccine due Goal Influenza vaccine. Due on due Goal Depression screening. Due on due Goal Foot exam. Due on due Goal Dilated eye exam. Due on Dec due Goal Hemoglobin A1C. Due on due Goal GFR. Due on due Goal Urine microalbumin. Due on due Goal Preventative Exam. Due on due Goal Lipid panel. Due on 023 due Goal Pneumococcal vaccine. Due on due Goal Influenza vaccine. Due on Wi due Goal Preventative Exam. Due on Fl due Goal Depression screening. Due on due Goal Td/Tdap vaccine. Due on due Goal Dilated eye exam. Due on November due Goal GFR. Due on due Goal Foot exam. Due on due Goal Hemoglobin A1C. Due on due Goal Urine microalbumin. Due on due Goal Lipid panel. Due on 023 due Goal Pneumococcal vaccine. Due on due Goal Td/Tdap vaccine. Due on due Goal Depression screening. Due on due Goal Influenza vaccine. Due on due Goal Preventative Exam. Due on Fl due Goal Lipid panel. Due on 023 due Goal GFR. Due on due Goal Hemoglobin A1C. Due on due Goal Urine microalbumin. Due on due Goal Dilated eye exam. Due on Sep due Goal Foot exam. Due on due Goal Pneumococcal vaccine. Due on due Goal Preventative Exam. Due on Fl due Goal Depression screening. Due on due Goal Td/Tdap vaccine. Due on due Goal Influenza vaccine. Due on due Goal Foot exam. Due on due Goal Dilated eye exam. Due on Sep due Goal Urine microalbumin. Due on due Goal Dilated eye exam. Due on Jun due Goal Hemoglobin A1C. Due on due Goal Lipid panel. Due on 013 due Goal GFR. Due on due Goal Foot exam. Due on due Goal Td/Tdap vaccine. Due on due Goal Influenza vaccine. Due on due Goal Pneumococcal vaccine. Due on due Goal Depression screening. Due on due Goal Preventative Exam. Due on due Referral Referred To: Norm Bang MD [address] [facility]
[address] [place], [place], [phone] Ordered: Referrals: Cardiology - Norm Bang MD ordered Referral Referred To: Monster Stewart MD [address] [facility] [address] [place], [phone] Ordered: Referrals: Dermatology - Monster Stewart MD ordered History Of Present Illness Encounter Date Complaint History Of Prese nt Illness med refill Comments: Type 2 diabetes- Restarted ozempic now, and sugars 120. Stopped jardiance. HTN: well controlled on current medicationsAnxiety- taking lexapro, ativan as needed for panic attacks.Needs flu shot Comments: Type 2 diabetes- has been taking ozempic but unable to get it at pharmacy. Taking jardiance. Has been on insulin in the past. Doing 30 minutes. Sugars have been in 500-600s. Does hx of DKA, last week had ketones in urine. This week reduced in 250s with salads and exercise. Cant tolerate metformin.HTN: well controlled on current medicationsAnxiety- taking lexapro, ativan as needed for panic attacks.labs ordered 3 months F/U CE ?The patient is here for a comprehensive physical exam today. Medications are reviewed and the patient reports no side effects.Flu vaccination - pt would like to get one wilian this yearTdap - in 2019. Pneumonia vaccination - in 2020HTN (hypertension), benign:Currently, on lisinopril 10 mg tablet.Currently, on Metoprolol tablet.BP 120's at home Alcohol was sober for 2 years and had a recent relapse. Has been off of alcohol for 3 months Atrial fibrillation, unspecified type:Currently, on Aspirin 81 mg tablet, metoprolol. reports that he had an episode of Afib. now back to . 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 last appt - 5 yrs ago. Gastroesophageal reflux disease, unspecified whether esophagitis present:Currently, on Prilosec (omeprazole) tablet.Anxiety:Currently, on Lexapro 20 mg tablet. Denies visiting psychiatrist at this point. was on ativan. does not need one at this time. Mixed hyperlipidemia:Currently, on Atorvastatin tablet. He is obese.Type 2 diabetes mellitus with hyperglycemia, without long-term current use of insulin:Currently, on Ozempic once a week and jardiance He checks his blood glucose his blood glucose reduces runs 120's. Admits have issue with metformin tablet. He was diagnosed with lactic acidosis. Currently, on Advair tablet and Albuterol inhaler for asthma like issue.Currently, on loratadine tablet for allergies.needs to follow up with dentist. has an appt with podiatrist [facility] f/u Admission Date: 04/21Discharge Date: 04/25Hospital: [facility] Reason: BP Went to detox (broke sobriety) for 04/22 for 3 day s checked out 04/25 bp and blood sugars were uncontrollably highThen went to [facility] [place] 04/22-04/25Severe alcohol use disorder:Currently, on Buspirone 7.5 mg tablet.Recalls he was hospitalized a couple of times due to severe alcohol use, sleep disturbance, vomiting, elevated blood pressure and blood sugar levels. He was in detox facility for four days. States the consulting doctor stopped Ativan tablet and switched it with Valium tablet. Mentions foggy head, attributes it to Valium tablet so stopped taking it. Inquires if he can take Buspirone 7.5 mg tablet. He is sober for two-three weeks now. He is a part of AA for several years now. Vodka is his choice of alcohol and drinks one and half litre of vodka with beer. He went to inpatient [facility] detox facility in [place] from April 22 to .HTN (hypertension), benign:Currently, on lisinopril 10 mg tablet.Currently, on Metoprolol tablet.Recalls he was hospitalized for elevated blood pressure. His blood pressure is usually in borderline or elevated. Recalls his blood pressure was 160/100s mmHg and was given clonidine and hydralazine tablets. He was Nevelol tablet earlier.Atrial fibrillation, unspecified type:Currently, on Aspirin 81 mg tablet.Gastroesophageal reflux disease, unspecified whether esophagitis present:Currently, on Prilosec (omeprazole) tablet.Anxiety:Currently, on Lexapro 20 mg tablet. Inquires if he can take Lexapro 20 mg tablet. Denies visiting psychiatrist at this point.Mixed hyperlipidemia:Currently, on Atorvastatin tablet. He is obese.Type 2 diabetes mellitus with hyperglycemia, without long-term current use of insulin:Currently, on Ozempic 0.5 mg once a week.Recalls he was hospitalized for elevated blood sugar level. His blood sugar is in 400s mg/dL. His HbA1c two months ago was 6.4 %. States he does not know if during hospitalization he has given any insulin treatment. Recalls he was in ER for two days. States his blood sugar was 340 mg/dL during inpatient [facility] detox facility. His fasting blood sugar level yesterday was 386s mg/dL. Admits monitoring fasting blood sugar level at home which is 300s range every day. He checks his blood glucose four-five times in a day. States after a walk and exercise his blood glucose reduces to 200/250s mg/dL. Admits have issue with metformin tablet. He was diagnosed with lactic acidosis. He was on Jardiance tablet. His blood pressure during visit was 148/98 mmHg.Additional comments:The blood work obtained reveals slightly elevated liver enzyme. His ALT was 42. He was diagnosed with liver spot.Currently, on Advair tablet and Albuterol inhaler for asthma like issue.Currently, on loratadine tablet for allergies. F/U 1 month follow up Review Lexapro dosageMedication refills med refill Controlled type 2 diabetes mellitus with hypoglycemia, without long-term current use of insulin:He takes either Ozempic or Jardience and recently started taking Jardience. Dr Foss asked to restart on Ozempic and continue taking it.; however, he is not sure if the new insurance will cover it. He had acid reflux from Ozempic 0.5 mg and was doing better on 0.25 mg. Intolerant to metformin due to decreased lactic acidosis. He is currently off medication since 6 weeks as he did not receive a refill and tried contacting the office multiple times and needs the prior authorization to be sent.HTN (hypertension), benign:on lisinopril and metoprolol Anxietyon lexaproMixed hyperlipidemiaon atorvastatin Atrial fibrillation, unspecified typeon ASA, statin, and BBGastroesophageal reflux disease, unspecified whether esophagitis presenton PPI .Needs refill for all his maintenance medications. 3 month f/u discuss medicati on Est. Care needing med refi lls Functional Status Date Functional Assessmen t No Information Instructions Date Instruction Additional Infor marvin follow in 6 months r efills if using daily then will need 3 months. Related to Anxiety refilled ozempic stuart aggarwal to figure out PA since ozempic worked well.lantus 5 units, novolog 2-6 units for meals Related to Type 2 diabetes mellitus with other specified complication, unspecified whether halfway insulin use refilled ativan for panic attackcontinue lexapro as well Related to Anxiety well controlled on c urrent medications Related to HTN (hypertension), benign continue meds. will recheck A1C. Related to Type 2 diabetes mellitus with other specified complication, without long-term current use of insulin continue med. Related to Extri nsic asthma, unspecified asthma severity, unspecified whether complicated, unspecified whether persistent on lisinopril and metoprolol Rel ated to Essential (primary) hypertension Last pneumonia vacci nation in 2020. Annual Health Assessment performed today. Multiple screening exams discussed and recommended based on pt's age and gender. Denies any new complaints Related to Encounter for general adult medical examination without abnormal findings increase ozempic to 1mg weekly start back on jardiance monitor blood glucose1 month follow up Related to Type 2 diabetes mellitus with hyperglycemia, without long-term current use of insulin continue accountabil ity with AAstay sober! Related to Severe alcohol use disorder on lisinopril and me toprolol increasing lisinopril to 20mg Related to HTN (hypertension), benign on ASA, statin, and BB Related t o Atrial fibrillation, unspecified type on PPI Related to Gastr oesophageal reflux disease, unspecified whether esophagitis present on lexaproincreasing buspirone to 7.5mg twice daily Related to Anxiety on atorvastatin Related to Mixed hyperlipidemia start taking lexapro 20mg once daily stop if you have any suicidal thoughts and call 911- lifestyle changes can help your depression such as exercise, social support, good nutrition and sleep.Psychotherapy along with medication has been proven to help with depression Related to Anxiety on ASA, statin, and BB Related t o Atrial fibrillation, unspecified type on PPI Related to Gastr oesophageal reflux disease, unspecified whether esophagitis present on lisinopril and metoprolol Rel ated to HTN (hypertension), benign on lexapro Related to Anxie ty on atorvastatin Related to Mixed hyperlipidemia -Your diabetes has b een well controlled. -Continue taking you current medications as ordered. I recommend for you to exercise as we discussed during today's visit. -Continue with diabetic diet and dietary changes. -Let me know if you would like a referral to a cable machine operator. -Keep monitoring your blood sugar at home and I will monitor your labs, including your A1C every 3-6 months.-It is recommended that you have an annual dilated eye exam and check your feet regularly. Related to Controlled type 2 diabetes mellitus with hypoglycemia, without long-term current use of insulin continue medication once daily, stop if you have any suicidal thoughts and call 911- lifestyle changes can help your depression such as exercise, social support, good nutrition and sleep.Psychotherapy along with medication has been proven to help with depression Related to Recurrent major depressive disorder, in partial remission For elevated blood p ressure:- Limit high fat and high sodium (salt) foods - DASH diet for guidance- Check your blood pressure no more than twice a day. Please record these readings along with your heart rate and bring them to your next appointment. - Recommend moderate exercise 3-4 days a week for 40 mins at a time. - Continue current medications. Avoid decongestant medications when sick as this can raise your blood pressure. Related to HTN (hypertension), benign -Your diabetes has b een well controlled. -Continue taking you current medications as ordered. I recommend for you to exercise as we discussed during today's visit. -Continue with diabetic diet and dietary changes. -Let me know if you would like a referral to a cable machine operator. -Keep monitoring your blood sugar at home and I will monitor your labs, including your A1C every 3-6 months.-It is recommended that you have an annual dilated eye exam and check your feet regularly. Related to Controlled type 2 diabetes mellitus with hypoglycemia, without long-term current use of insulin continue medication once daily, stop if you have any suicidal thoughts and call 911- lifestyle changes can help your depression such as exercise, social support, good nutrition and sleep.Psychotherapy along with medication has been proven to help with depression Related to Recurrent major depressive disorder, in partial remission -Continue taking you current medications as ordered. I recommend for you to exercise as we discussed during today's visit. -Continue with diabetic diet and dietary changes. -Let me know if you would like a referral to a cable machine operator. -Keep monitoring your blood sugar at home and I will monitor your labs, including your A1C every 3-6 months.-It is recommended that you have an annual dilated eye exam and check your feet regularly. Related to Type 2 diabetes mellitus with other specified complication, without long-term current use of insulin Continue taking your statinWe will monitor lipids at regular intervalsWe encourage lifestyle modifications of diet and exercise.I recommend exercise 3-4x/wk lasting 40min with moderate-vigorous intensity. Increase intake of vegetables, fruits and whole grains; low fat dairy, poutlry, fish, legumes, and nuts. Limit intake of sweets, sugary drinks, and red meats. The DASH diet is a good one to follow. Related to Mixed hyperlipidemia GERD/Acid reflux can cause upper abdominal burning, midline chest burning, cough, and pharyngitis. Diet and lifestyle modification is recommended. GERD diet - Avoid tomato-based and fried/fatty foods. Avoid alcoholic beverages and caffeinated beverages. Avoid acidic juices and carbonated beverages. Lifestyle modifications - Avoid eating three hours before laying down for bed. Eat smaller meals more frequently. Avoid NSAIDs (advil, aleve, ibuprofen). Elevate the head of your bed 3-5 inches with blocks at the head or pillows under the mattress. If these interventions do not control your symptoms or have other symptoms like trouble swallowing, weight loss, or food getting stuck you may need a GI referral. Related to Gastroesophageal reflux disease without esophagitis For elevated blood p ressure:- Limit high fat and high sodium (salt) foods - DASH diet for guidance- Check your blood pressure no more than twice a day. Please record these readings along with your heart rate and bring them to your next appointment. - Recommend moderate exercise 3-4 days a week for 40 mins at a time. - Continue current medications. Avoid decongestant medications when sick as this can raise your blood pressure. Related to HTN (hypertension), benign Assessments Type Assessment Date assessment Type 2 diabetes sheri itus with other specified complication, unspecified whether halfway insulin use Patient Care Teams Name Effective Dates (start - stop) Status Members No Information
--- OUTSIDE RECORDS SUMMARY | 2024-11-04 01:02 | XMS_ITS | Encounter Summary ---
Author Organization [facility] Address [address] [place] [address] Care Team Providers Care Veterinary Medicine Doctor Name Role Phone Artie Grant MD Primary Care Provider [phone] Artie Grant MD Unavailable [phone] Reason for Visit * Reason Onset Date Comments Refill Request 10/08/2024 Encounter Details Date Type Department Care Team (Late st Contact Info) Description 10/08/2024 Refill [facility] [address] [place] [address] Artie Grant MD [address] [place] [id number] Refill Request Social History Tobacco Use Types [...] 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 documented [...] Component 6.1(07/11/19 7:28 AM EST) Brenda Redd, MYA Note: Above is your goal for sugar [...] on filedocumented in this encounter Care Teams Veterinary Medicine Doctor Relationship Specialty Start Date End Date Artie Grant MD [address] [place] [address] PCP - General 06/14/23 Artie Grant MD [address] [place] [address] PCP - Backup PCP Family Medicine 08/10/23 documented as of this encounter
--- OUTSIDE RECORDS SUMMARY | 2024-11-04 01:02 | XMS_ITS | Encounter Summary ---
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 documented in this encounter Plan of Treatment Upcoming Encounters Date Type Department Care Team (Late st Contact Info) Description 04/09/2025 8:00 AM EDT Office Visit [facility] [address] [place] [address] Artie Grant MD [address] [place] [address] Return for 6 month f/u [...] A1C % < 7 Result Component 6.1(07/11/19 25 7:28 AM EST) Brenda Redd, RN Note: [...] on filedocumented in this encounter Care Teams Wrapper Opener Relationship Specialty Start Date End Date Artie Grant MD [address] [place] [address] PCP - General 06/14/23 Artie Grant MD [address] [place] [address] PCP - Backup PCP Family Medicine 08/10/23 documented as of this encounter
--- OUTSIDE RECORDS SUMMARY | 2024-11-04 01:02 | XMS_ITS ---
Author Name [facility] Organization [facility] Results Test Name/Text Value Interpretation Date Range Source MAGNESIUM 2mg/dL Normal [id number] 1.6 - 2.6 [facility] VITAMIN B12 627pg/ml Normal [id number] 232 - 1245 [facility] TSH 2.06uIU/ml Normal [id number] 0.5 - 4.8 [facility] VITAMIN B6, PLASMA 32.4ng/mL Above high normal [id number] 2.1 - 21.7 [facility] MARIEL SCREEN, IFA POSITIVE Abnormal [id number] - C [facility] MARIEL PATTERN Nuclear, Dense Fine Speckled Abnormal [id number] [facility] MARIEL TITER 1:80 Above high normal [id number] [facility] UM. ALB/CREAT RATIO 5 Normal [id number] 0 - 30 [facility] URINE CREATININE 275mg/dL Above high normal [id number] 60 - 200 [facility] URINE MICROALBUMIN 15mg/L Normal [id number] 0 - 23 [facility] Hemoglobin A1C 6.1%A1C Normal [id number] 4.3 - 6.1 CT [facility] RBC 5.2M/uL Normal [id number] 4.2 - 6.1 [facility] LYMPH% 26% Normal [id number] [facility] NRBC% 0/100WBC Normal [id number] 0 - 1 [facility] BASO% 0.6% Normal [id number] [facility] MCV 93fL Normal [id number] 80 - 100 [facility] LYMPH# 2.24K/uL Normal [id number] 0.8 - 4.5 [facility] WBC 8.6K/uL Normal [id number] 3.6 - 11 [facility] MCHC 33g/dl Normal [id number] 31 - 35 [facility] MONO% 8.6% Normal [id number] [facility] PLT 317K/uL Normal [id number] 150 - 450 [facility] MPV 10.4fL Normal [id number] 9 - 13 [facility] EOS% 2.8% Normal [id number] [facility] HEMOGLOBIN 15.8g/dL Normal [id number] 12.7 - 17.5 [facility] MONO# 0.74K/uL Normal [id number] 0.2 - 1 [facility] NEUT# 5.29K/uL Normal [id number] 1.5 - 7.8 [facility] NRBC# 0K/uL Normal [id number] [facility] NEUT% 61.5% Normal [id number] [facility] MCH 30pg Normal [id number] 27 - 32 [facility] HEMATOCRIT 48.5% Normal [id number] 38.5 - 52 [facility] RDW-CV 13.6% Normal [id number] 12 - 16.1 [facility] ANION GAP 11 [id number] [facility] CALCULATED OSMO 274mOsm/kg Normal [id number] 253 - 285 [facility] A/G RATIO 2 Normal [id number] 1 - 3 [facility] BUN/CREAT RATIO 16 Normal [id number] 6 - 25 [facility] GLOBULIN 2.5g/dl Normal [id number] 1.4 - 4.8 [facility] egfr 106 Normal [id number] - [facility] POTASSIUM 4.1mmol/L Normal [id number] 3.3 - 5.3 [facility] CHLORIDE 102mmol/L Normal [id number] 96 - 108 [facility] SODIUM 141mmol/L Normal [id number] 133 - 145 [facility] ALBUMIN 4.2g/dl Normal [id number] 3.5 - 5.2 [facility] GLUCOSE 129mg/dL Above high normal [id number] 65 - 99 [facility] CO2 28mmol/L Normal [id number] 22 - 32 [facility] BUN 14mg/dL Normal [id number] 6 - 20 [facility] ALKALINE PHOSPHATASE 85U/L Normal [id number] 40 - 130 [facility] AST 22U/L Normal [id number] 4 - 40 [facility] CALCIUM 9.1mg/dL Normal [id number] 8.6 - 10.5 [facility] TOTAL PROTEIN 6.7g/dL Normal [id number] 6.2 - 8.2 [facility] CREATININE 0.9mg/dL Normal [id number] 0.5 - 1.2 [facility] ALT 32U/L Normal [id number] 4 - 41 [facility] TOTAL BILIRUBIN 2.1mg/dL Above high normal [id number] 0.1 - 1 [facility] LDL 51mg/dL Normal [id number] 0 - 100 [facility] CHOL/HDL RATIO [id number] [facility] VLDL 36mg/dL Normal [id number] 5 - 40 [facility] Non-HDL CHOLESTEROL 87mg/dl Normal [id number] 0 - 130 [facility] CHOLESTEROL 116mg/dL Normal [id number] 0 - 199 [facility] HDL 29mg/dL Below low normal [id number] 40 - 80 [facility] TRIGLYCERIDES 180mg/dL Above high normal [id number] 0 - 1 [address] [facility] Encounters Encounter Type Encounter Reason Primary Diagnosis Location Date Ambulatory [facility] 10/08 [facility]ulatory [facility] 10/08 [facility]ulatory [facility] 10/08 [facility] 10/08 [facility]ulatory [facility] 09/09 Ambulatory [facility] 09/09 Ambulatory [facility] 08/10 [facility]ulatory [facility] 08/10 Ambulatory [facility] 08/2024 Ambulatory [facility] 06/11 [facility]ulatory [facility] 01/24/2024 Ambulatory [facility] 12/2022 Care Team Organization Name Specialty Phone Email Start Date End Da te [facility] 2024 [facility] 04/09/2024 [facility] M[facility]HA [facility] 04/01/2024 [facility] 03/12/2024 [facility] 07/30/2023 03/12/2024 [facility] 07/21/2023 07/21/2023 [facility] Rudy [facility] 06/14/2023 03/14/2024
--- OUTSIDE RECORDS SUMMARY | 2024-11-04 01:02 | XMS_ITS | Encounter Summary ---
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
--- OUTSIDE RECORDS SUMMARY | 2024-11-04 01:02 | XMS_ITS | Clinical Summary ---
Author Organization [facility] Address [address] [place] [address] Care Team Providers Care Scuba Diving Teacher Name Role Phone Artie Grant MD Primary Care Provider [phone] Artie Grant MD Unavailable [phone] Allergies Active Allergy Reactions Criticality Noted Date Comments Contrast Dye Urticarial Rash,Pruritus (itching) 09/11/2023 Environmental Cough 09/11/2023 Hydroxyzine Hcl Other 09/19/2022 Worsening of a-fib Worsening of a-fib Worsening of a-fib Iodinated Diagnostic Agents Other,Urticarial Rash,Pruritus (itching) High 08/15/2019 Metformin Other 10/21/2024 Medications Loratadine 10 MG Cap Take 10 mg by mouth 1 (one) time each day. Active Multiple Vitamin (MULTIVITAMIN ADULT OR) Take by mouth. Active Vitamin D, Cholecalciferol , (VITAMIN D-3) 25 MCG (1000 UT) tablet Take 1,000 Units by mouth 1 (one) time each day. Active Omeprazole (PriLOSEC) [address] capsule Take one capsule (20 mg total) by mouth 1 (one) time each day. 90 capsule 3 09/11/19 24 025 Active Insulin Glargine (Lantus) 100 UNIT/ML injection Inject 10 Units under the skin every night. Active Lisinopril (PRINIVIL,ZESTR IL) 20 MG tablet TAKE 1 TABLET (20 MG TOTAL) BY MOUTH ONE TIME EACH DAY 90 tablet 3 03/19/20 24 Active Atorvastatin Calcium (LIPITOR) 20 MG tablet TAKE 1 TABLET (20 MG TOTAL) BY MOUTH ONE TIME EACH DAY 90 tablet 3 03/19/20 24 Active Metoprolol Succinate (TOPROL-XL) 100 MG 24 hr tablet take 1 tablet by mouth every day 90 tablet 3 03/19/20 24 Active ALPRAZolam (Xanax) 0.25 MG tabletIndicatio ns:Anxiety Take one tablet (0.25 mg total) by mouth at night if needed for anxiety or sleep. 30 tablet 08/23/19 25 Active Albuterol (PROVENTIL HFA;VENTOLIN HFA) 90 mcg/ACT inhalerIndicati ons:Moderate asthma, unspecified whether complicated, unspecified whether persistent (HHS) Inhale two puffs every 4 (four) hours if needed for wheezing or shortness of breath Dispense Generic or Brand Albuterol per preferred payor coverage.. 1 each 10/08/19 25 026 Active Escitalopram (LEXAPRO) 20 MG tabletIndicatio ns:Recurrent major depressive disorder, in full remission Take one tablet (20 mg total) by mouth 1 (one) time each day. 90 tablet 3 10/08/19 25 026 Active Empagliflozin (Jardiance) 10 MG tabletIndicatio ns:Dyslipidemia associated with type 2 diabetes mellitus (HCC) Take one tablet (10 mg total) by mouth 1 (one) time each day in the morning. 90 tablet 3 10/08/19 25 026 Active Lancets Misc. LancetIndicatio ns:Type 2 diabetes mellitus without complication, unspecified whether press tender long goods insulin use (HCC) 1 each by Other route - Use BID. Pharmacist: Please Dispense Lancet Brand as covered by the Patient Insurance.. 100 each 2 10/23/19 25 025 Active Insulin Pen Needle (PEN NEEDLES 31GX5/16 ) 31G X 8 MM Pen NeedleIndicatio ns:Dyslipidemia associated with type 2 diabetes mellitus (HCC) 1 Syringe - Use with insulin to inject once daily as directed. 100 each 3 10/25/19 25 026 Active Fluticasone-Alex meterol (ADVAIR DISKUS) 250-50 MCG/ACT diskus inhalerIndicati ons:Moderate asthma, unspecified whether complicated, unspecified whether persistent (HHS) INHALE 1 PUFF BY MOUTH TWICE DAILY 60 each 5 10/31/19 25 Active Escitalopram Oxalate (LEXAPRO) 20 MG tablet Take one tablet (20 mg total) by mouth 1 (one) time each day. 90 tablet 3 09/11/19 24 025 Discontinued(Re order (No Cancel Rx)) Fluticasone-Alex meterol (ADVAIR DISKUS) 250-50 MCG/ACT diskus inhalerIndicati ons:Moderate asthma, unspecified whether complicated, unspecified whether persistent (HHS) INHALE 1 PUFF TWICE DAILY 60 each 2 04/17/20 24 025 Discontinued(Re order (No Cancel Rx)) Fluticasone-Alex meterol (ADVAIR DISKUS) 250-50 MCG/ACT diskus inhalerIndicati ons:Moderate asthma, unspecified whether complicated, unspecified whether persistent (HHS) Inhale one puff 2 (two) times a day. 60 each 2 10/08/19 25 025 Discontinued Active Problems Problem Noted Date Diagnosed Date Recurrent major depressive disorder, in full rem ission 10/07/2024 Overview (10/07/2024): Stable. Denies suicidal ideation/homicidal. Continue with current management. Alcohol withdrawal syndrome without complication 08/22/2024 Dyslipidemia associated with type 2 diabetes trudy litus 09/11/2023 Overview (10/07/2024): Hemoglobin A1C in office 6.5 Currently taken with ozempic 1 milligram Q 7 days. We will increase to 2mg Q7 days. Current we only taking 10 units. Will titrate down. Can begin taking 8 units of lantus HS. Continue to monitor glucose numbers 10/07/24: Patient reports he discontinued Ozempic secondary to cost. Currently takes 20 units of Lantus at bedtime. He continues to monitor his blood glucose numbers at home. States that they are within acceptable limits. We discussed transitioning to oral medications. Patient agreeable. We will start Jardiance 10 mg every morning. He can titrate his insulin down to 16 units at bedtime. Paroxysmal A-fib 09/11/2023 Overview (09/11/2023): Not on anticoagulation. [id number]:2, should be on anticoagulation based on calculator Will refer to cardiology to establish care and for recommendations regarding initiation of anticoag Hypertension 09/11/2023 Overview (09/11/2023): WNL in office. Can continue on current med for management Hyperlipidemia 09/11/2023 Overview (09/11/2023): Will obtain most recent labs C/w current management. GERD (gastroesophageal reflux disease) Overview (09/11/2023): Can continue with current management Asthma (HHS) 09/11/2023 Encounters Date Type Department Care Team Description 10/30/[address] [phone] Artie Grant MD E-prescribing Refill Request 10/22/2024 Orders Only [address] [address] Artie Grant MD Medications 10/21/2024 Orders Only [address] [phone] Artie Grant MD 10/21/[address] [place] [address] Artie Grant MD Error 10/17/2024 Telephone [facility] [address] [address] Artie Grant MD FYI 10/17/2024 Telephone [facility] [address] [place] [address] Artie Grant MD Other 10/17/2024 Telephone [facility] [address] [address] Artie Grant MD Error 10/10/2024 [facility] [address] [place] [address] Artie Grant MD Refill Request 10/10/2024 [place] [address] Artie Grant MD Refill Request 10/08/2024 Refill [facility] [address] [place] [address] Artie Grant MD Refill Request 10/07/2024 8:45 AM EDT CPE - [place] [address] Artie Grant MD Routine history and physical examination of adult (Primary Dx); Moderate asthma, unspecified whether complicated, unspecified whether persistent (HHS); Recurrent major depressive disorder, in full remission; Dyslipidemia associated with type 2 diabetes mellitus; Numbness and tingling in right hand; Depression, major, in remission 10/07/2024 7:50 AM EDT Minor Procedure/Test [facility] [address] [place] [address] Alcohol withdrawal syndrome without complication (Primary Dx); Numbness and tingling in right hand 08/27/2024 Orders Only [place] [phone] Artie Grant MD 08/23/[address] [phone] Artie Grant MD Prior Authorization Request 08/22/2024 4:00 PM EST Office Visit [address] [address] Artie Grant MD Alcohol withdrawal syndrome without complication (Primary Dx); Anxiety; Numbness and tingling in right hand; Asthma ([facility]) 08/22/2024 Letter/Form NON FC SA NON FC UNK Provider, Unknown from Last 3 Months Immunizations Name Administration Dates Next Due Influenza,MDCK,trivalent,PF (Flucelvax) 07/08/20 24 Family History Medical History Relation Name Comments Blood Clot/DVT/Hypercoagulation Father Cancer - Breast Mother hld Mother Relation Name Status Comments Father Mother Alive Social History Tobacco Use Types Packs/Day Years Used Date Smoking Tobacco: Never Smokeless Tobacco: Never Tobacco Cessation:Counseling Given: No Alcohol Use Standard Drinks/Week Comments Not Currently [...] 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 on fi le Last Filed Vital Signs Vital Sign Reading Time Taken Comments Blood Pressure 98/72 10/07/2024 8:44 AM EDT Pulse 77 10/07/2024 8:44 AM EDT Temperature 36.7 ??C (98.1 ??F) 10/07/2024 8:44 AM ED T Respiratory Rate 14 09/11/2023 8:10 AM EST Oxygen Saturation 97% 10/07/2024 8:44 AM EDT Inhaled Oxygen Concentration - - Weight 120 kg (265 lb) 10/07/2024 8:44 AM EDT Height 185.4 cm (6' 1 ) 10/07/2024 8:44 AM EDT Body Mass Index 34.96 10/07/2024 8:44 AM EDT Plan of Treatment Upcoming Encounters Date Type Department Care Team (Late st Contact Info) Description 04/09/2025 8:00 AM EDT Office Visit [address] [phone] Artie Grant MD [address] [place] [phone] Return for 6 month f/u DM. Health Maintenance Due Date Last Done Comments DTaP/Tdap/Td (1 - Tdap) 1995 Eye/Retina Exam 1995 Hep B (1 of 3 - 19+ 3-dose series) 1996 COVID-19 Vaccine (1 - 2023-2 5 season) 2024 HA1C 01/08/2025 07/11/2024, 2024 GFR 07/11/2025 07/11/2024, 09/12/2023, 04/21/2022 LDL Cholesterol 07/11/2025 07/11/2024, 09/12/2023 Microalbumin 07/11/2025 07/11/2024, 09/13/2023 Pneumococcal (1 of 2 - PCV) 10/08/2025 Postponed from 1996 (Refused by patient) Colon Cancer Screening 10/14/2025 10/14/2022 Zoster (Shingrix) (1 of 2) 2027 Cologuard Dates Discontinued 10/04/2022 Hepatitis C Screening Completed 09/12/2023 Influenza Completed 2024 Physical Discontinued 10/07/2024, 09/11/2023 HPV Vaccine Aged Out No longer eligi ble based on patient's age to complete this topic Hep A Aged Out No longer eligi ble based on patient's age to complete this topic Hib Aged Out No longer eligi ble based on patient's age to complete this topic Meningococcal ACWY Aged Out No longer eligible based on patient's age to complete this topic Goals Goal Patient Goal Type Associated Problems [...] Result Component 6.1(07/11/19 7:28 AM EST) Brenda Redd RN Note: Above is your goal for [...] fasting blood sugar below 120 is ideal. Procedures Procedure Name Priority Date/Time Associated Diagnosis Comments MAGNESIUM Routine 10/07/2024 7:48 AM EDT Alcohol withdrawal syndrome without complication THYROID STIMULATING HORMONE (TSH) WITH FREE T4 REFLEX, SERUM Routine 10/07/2024 7:48 AM EDT Alcohol withdrawal syndrome without complication VITAMIN B12 (CYANOCOBALAMIN), SERUM Routine 10/07/2024 7:48 AM EDT Alcohol withdrawal syndrome without complication MARIEL TITER AND PATTERN Routine 10/07/2024 7:48 AM EDT MARIEL SCREEN IFA W/REFLEX TO TITER/PATTERN IFA Routine 10/07/2024 7:48 AM EDT Numbness and tingling in right hand VITAMIN B6 Routine 10/07/2024 7:48 AM EDT Alcohol withdrawal syndrome without complication (HCC) COMPREHENSIVE METABOLIC PANEL WITH GFR Routine 07/11/2024 7:28 AM EST Type 2 diabetes mellitus without complication, unspecified whether press tender long goods insulin use ALBUMIN (MICROALBUMIN), RANDOM URINE, WITH CREATININE Routine 07/11/2024 7:28 AM EST Type 2 diabetes mellitus without complication, unspecified whether usp insulin use HEMOGLOBIN A1C Routine 07/11/2024 7:28 AM EST Dyslipidemia associated with type 2 diabetes mellitus LIPID PANEL WITH REFLEX TO DIRECT LDL Routine 07/11/2024 7:28 AM EST Type 2 diabetes mellitus without complication, unspecified whether usp insulin use HEPATITIS C AB WITH REFLEX TO RNA PCR, SERUM Routine 09/12/2023 2:52 PM EST Need for hepatitis C screening test from Last 3 Months or Most Recently Relevant to Health Maintenance Results * THYROID STIMULATING HORMONE (TSH) WITH FREE T4 REFLEX, SERUM (10/07/2024 7:48 AM EDT) TSH (Thyrotropin) 2.06 0.50 - 4.80 uIU/ml [facility] 10/07/2024 7:48 AM EDT 10/07/2024 12:54 PM EDT Narrative [facility] - 10/07/2024 2:56 PM EDT [facility] performed [facility], [address] [place] [address], , Diagrammer And Seamer: Rebecca Moser MD CL#[id number] us Artie Grant MD LABORATORY Final Result [facility] [address] [place] [address]. [place] [address], * MAGNESIUM, SERUM (10/07/2024 7:48 AM EDT) Magnesium 2.0 1.6 - 2.6 mg/dL [facility] 10/07/2024 7:48 AM EDT 10/07/2024 12:54 PM EDT Narrative [facility] - 10/07/2024 3:12 PM EDT Testing performed at [facility], [address] [place] [address], , Diagrammer And Seamer: Rebecca Moser MD CL#[id number] Artie Grant MD LABORATORY Final Result Performing Organization Address [facility] de Phone Number [facility] [address] [place] [address], * VITAMIN B12 (CYANOCOBALAMIN), SERUM (10/07/2024 7:48 AM EDT) Pathologist [facility] Vitamin B12 (Cobalamins) 627 232 - 1,245 pg/ml [facility] 10/07/2024 7:48 AM EDT 10/07/2024 12:54 PM EDT Narrative [facility] - 10/07/2024 2:56 PM EDT Testing performed at [facility], [address] [place] [address], , Diagrammer And Seamer: Rebecca Moser MD CL#[id number] Artie Grant MD LABORATORY Final Result Performing Organization Address [facility] de Phone Number [facility] [address] [place] [address], * (ABNORMAL) MARIEL TITER AND PATTERN (10/07/2024 7:48 AM EDT) Anti-Nuclear Ab Titer 1:80(H) titer [facility] Comment: A low level MARIEL titer may be present in pre-clinical autoimmune diseases and normal individuals. ?Reference Range ?<1:40 ?Negative ?1:40-1:80 ?Low Antibody Level ?>1:80 ?Elevated Antibody Level MARIEL Pattern Nuclear, Dense Fine Speckled(A ) [facility] Comment: Dense fine speckled pattern is seen in normal individuals and rarely associated with systemic lupus erythematosis (SLE), Sjogren's syndrome and systemic sclerosis. AC-2: Dense Fine Speckled International Consensus on MARIEL Patterns (https://doi.org/10.1515/gdnm-4954-4101) 10/07/2024 7:48 AM EDT 10/07/2024 10:35 PM EDT Narrative [facility] - 10/10/2024 8:30 PM EDT [facility] Testing performed at: [facility], [facility], [address] [place] [address], [phone], Diagrammer And Seamer: Carlos Cantu M.D. [facility] Collection Date/Time: [id number] [facility] Results Received Date/Time: [id number] [facility] Reported Date/Time: [id number] Artie Grant MD LABORATORY Final Result [facility] [address] [place] [address], * (ABNORMAL) MARIEL SCREEN IFA W/REFLEX TO TITER/PATTERN IFA (10/07/2024 7:48 AM EDT) MARIEL IFA POSITIVE( A) NEGATIVE [facility] Comment: MARIEL IFA is a first line screen for detecting the presence of up to approximately 150 autoantibodies in various autoimmune diseases. A positive MARIEL IFA result is suggestive of autoimmune disease and reflexes to titer and pattern. Further laboratory testing may be considered if clinically indicated. For additional information, please refer to http://education.Wibki/faq/NDM231 (This link is being provided for informational/ educational purposes only.) ?? 10/07/2024 7:48 AM EDT 10/07/2024 10:35 PM EDT [facility] - 10/10/2024 8:30 PM EDT [facility] Testing performed at: [facility], [employer] [facility] [facility], [address] [place] [address], [phone], Diagrammer And Seamer: Carlos Cantu M.D. [facility] Collection Date/Time: [id number] [facility] Results Received Date/Time: [id number] [facility] Reported Date/Time: [id number] Artie Grant MD LABORATORY Final Result Performing Organization Address City/[facility] Co de Phone Number [facility] [address] [place] [address], * (ABNORMAL) VITAMIN B6 (10/07/2024 7:48 AM EDT) [facility] Pyridoxal phosphate 32.4(H) 2.1 - 21.7 ng/mL [facility] Comment: Vitamin supplementation within 24 hours prior to blood draw may affect the accuracy of the results. This test was developed and its analytical performance characteristics have been determined by [employer] [facility] [place], [place]. It has not been cleared or approved by the U.S. Food and Drug Administration. This assay has been validated pursuant to the CLIA regulations and is used for clinical purposes. 10/07/2024 7:48 AM EDT 10/07/2024 7:39 PM EDT Narrative [facility] - 10/11/2024 3:50 PM EDT [facility] Testing performed at: [facility], [facility], [address], [place], [address], Diagrammer And Seamer: Blu Valdes M.D.,PhD [facility] Collection Date/Time: [id number] [facility] Results Received Date/Time: [id number] [facility] Reported Date/Time: [id number] Artie Grant MD LABORATORY Final Result [facility] [address] [facility] [place] [address], * HEMOGLOBIN A1C (07/11/2024 7:28 AM EST) Hemoglobin A1C 6.1 4.3 - 6.1 %A1C [facility] Comment: 5.7-6.4 Increased Risk of Diabetes >6.4 Consistent with Diabetes The [place] [employer] Association recommends a goal of less than 7% for diabetic patients. 07/11/2024 7:28 AM EST 07/11/2024 1:27 PM EST Narrative [facility] - 07/11/2024 3:14 PM EST Testing performed at [facility], [address] [place] [address], , Diagrammer And Seamer: Rebecca Moser MD CL#[id number] us Artie Grant MD LABORATORY Final Result Performing Organization Address [facility] Co de Phone Number [facility] [address] [place] [address], * (ABNORMAL) ALBUMIN (MICROALBUMIN), RANDOM URINE, WITH CREATININE (07/11/2024 7:28 AM EST) Albumin (Urine) 15 0 - 23 mg/L [facility] Creatinine (Urine) 275(H) 60 - 200 mg/dL [facility] Microalbumin/Cr eat Ratio (Urine) 5 0 - 30 [facility] 07/11/2024 7:28 AM EST 07/11/2024 1:27 PM EST Narrative [facility] - 07/11/2024 3:48 PM EST Testing performed at [facility], [address] [place] [address], , Diagrammer And Seamer: Rebecca Moser MD CL#[id number] us Artie Grant MD LABORATORY Final Result Performing Organization Address [facility] Co de Phone Number [facility] [address] [place] [address], * (ABNORMAL) LIPID PANEL WITH REFLEX TO DIRECT LDL (07/11/2024 7:28 AM EST) Cholesterol 116 0 - 199 mg/dL [facility] Triglyceride 180(H) 0 - 150 mg/dL [facility] VLDL Cholesterol 36 5 - 40 mg/dL [facility] HDL Cholesterol 29(L) 40 - 80 mg/dL [facility] LDL Cholesterol 51 0 - 100 mg/dL [facility] Cholesterol Non-HDL 87 0 - 130 mg/dl [facility] CHOL/HDL Ratio 4.0 [facility] 07/11/2024 7:28 AM EST 07/11/2024 1:27 PM EST Narrative [facility] - 07/11/2024 2:03 PM EST Route to PCP? (if blank or no routes to encounter provider)->No FASTING: YES Testing performed at [facility], [address] [place] [address], , Diagrammer And Seamer: Rebecca Moser MD CL#[id number] Artie Grant MD LABORATORY Final Result [facility] [address] [place] [address], * (ABNORMAL) COMPREHENSIVE METABOLIC PANEL WITH GFR (07/11/2024 7:28 AM EST) Glucose 129(H) 65 - 99 mg/dL [facility] Comment:Fasting Reference In terval Urea Nitrogen Blood (BUN) 14 6 - 20 mg/dL [facility] Creatinine 0.9 0.5 - 1.2 mg/dL [facility] GFR 106 >=[address] [facility] BUN/Creatinine Ratio 16 6 - [address] [facility] Sodium 141 133 - 145 mmol/L [facility] Potassium 4.1 3.3 - 5.3 mmol/L [facility] Chloride 102 96 - 108 mmol/L [facility] Bicarbonate 28 22 - 32 mmol/L [facility] Anion gap 3 11 [facility] Calcium 9.1 8.6 - 10.5 mg/dL [facility] Protein Total (Serum) 6.7 6.2 - 8.2 g/dL [facility] Albumin 4.2 3.5 - 5.2 g/dl [facility] Alkaline phosphatase 85 40 - 130 U/L [facility] AST (SGOT) 22 4 - 40 U/L [facility] ALT (SGPT) 32 4 - 41 U/L [facility] Bilirubin Total 2.1(H) 0.1 - 1.0 mg/dL [facility] Globulin 2.5 1.4 - 4.8 g/dl [facility] Albumin/Globulin 2 1 - 3 [facility] Osmolality 274 253 - 285 mOsm/kg [facility] 07/11/2024 7:28 AM EST 07/11/2024 1:27 PM EST Narrative [facility] - 07/11/2024 2:04 PM EST FASTING: YES Testing performed at [facility], [address] [place] [address], , Diagrammer And Seamer: Rebecca Moser MD CL#[id number] us Artie Grant MD LABORATORY Final Result [facility] [address] [place] [address]. [place] [address], * HEPATITIS C AB WITH REFLEX TO RNA PCR, SERUM (09/12/2023 2:52 PM EST) Hepatitis C virus Ab NON-REACT MARY ANN NON-REACT MARY ANN [facility] Comment:Antibodies to HCV we re not detected. NOTE: This does not entirely exclude the possibility of exposure to HCV since antibody production may lag infection. If there is a high suspicion of HCV infection HCV RNA testing may be of diagnostic value. 09/12/2023 2:52 PM EST 09/12/2023 8:12 PM EST Narrative [facility] - 09/12/2023 9:55 PM EST Track Order?->No Release result to patient->Immediate Testing Performed at: [facility], [address] [place] [address], , Diagrammer And Seamer: Rebecca Moser MD CL#[id number] us Artie Grant MD LABORATORY Final Result [facility] [address] [place] [address], from Last 3 Months or Most Recently Relevant to Health Maintenance Insurance [employer] PPO dr [id number] [place] [address] [employer] PPO Care Teams Scuba Diving Teacher Relationship Specialty Start Date End Date Artie Grant MD [address] [place] [phone] PCP - General 06/14/23 Artie Grant MD [address] [place] [address] PCP - Backup PCP Family Medicine 08/10/23
--- OUTSIDE RECORDS SUMMARY | 2024-11-04 01:02 | XMS_ITS | Encounter Summary ---
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 [...] on filedocumented in this encounter Care Teams Grain Handler Relationship Specialty Start Date End Date Artie Grant MD [address] [place] [phone] PCP - General 12/6/23 Artie Grant MD [address] [place] [phone] PCP - Backup PCP Family Medicine 08/10/23 documented as of this encounter
[2024-11-04 01:42] VITALS: BP 117/63; PULSE 85; RESP 12; TEMP 36.7; O2SAT 95
[2024-11-04 03:11] VITALS: BP 114/58; PULSE 81; RESP 12; TEMP 36.7; O2SAT 95
[2024-11-04 03:21] VITALS: BP 114/58; PULSE 81; RESP 12; TEMP 36.7; O2SAT 95
== END 2024-11-04 03:22 | disposition home or self-care (01) ==
PROVIDERS: Emergency Provider Emergency Medicine
DX: E11.65 Type 2 diabetes mellitus with hyperglycemia (principal); F10.129 Alcohol abuse with intoxication, unspecified; Y90.7 Blood alcohol level of 200-239 mg/100 ml; R79.89 Other specified abnormal findings of blood chemistry; F43.9 Reaction to severe stress, unspecified; R94.31 Abnormal electrocardiogram [ECG] [EKG]; Z79.4 Long term (current) use of insulin; Z79.899 Other long term (current) drug therapy; Z51.81 Encounter for therapeutic drug level monitoring
CPT/HCPCS: 36415; 80048; 80053; 80307; 81001; 82010; 82947; 83690; 83735; 85025; 93005; 96361; 96374; 96375; 99285; J2405; J3411

== ENCOUNTER → 2024-11-03 22:25 | Outpatient (BNV) | payer OTHER, SELFPAY | PROVIDERS: Emergency Provider Emergency Medicine; Visit Provider Internal Medicine Cardiovascular Disease | DX: R11.2 Nausea with vomiting, unspecified (principal); R73.9 Hyperglycemia, unspecified | CPT/HCPCS: 93010 ==

== ENCOUNTER 2024-12-15 06:22 | Emergency (ER) | payer OTHER, SELFPAY ==
[2024-12-15 06:23] VITALS: BP 113/82; PULSE 97; RESP 20; TEMP 36.9; O2SAT 95; BMI 32.8
[2024-12-15 07:01] LABS: Glucose, Whole Blood 257 mg/dL (60-115)
[2024-12-15 07:18] VITALS: BP 119/75; PULSE 84; RESP 20; TEMP 37; O2SAT 93
[2024-12-15] MEDS: LORazepam 1 MG TABLET 2 MG PO (07:39)
[2024-12-15 07:44] LABS: MANUAL DIFF FLAG NO
[2024-12-15 07:45] LABS: Basophils Absolute Auto 0.1 X10*3/uL (0.0-0.2); Basophils Percent Auto 0.5 % (0-2); Eosinophils Absolute Auto 0.1 X10*3/uL (0.0-0.4); Eosinophils Percent Auto 0.8 % (0-4); Hematocrit 45.4 % (42.0-52.0); Hemoglobin 16.3 g/dl (14.0-18.0); Imm Gran Abs Auto 0.05 X10*3/uL (0.00-0.03); Imm Gran Pct Auto 0.3 % (0.0-0.4); Lymphocytes Percent Auto 21.2 % (20-40); Mean Corpuscular HGB Conc 35.9 g/dl (31.0-36.0); Mean Corpuscular Hemoglobin 30.8 pg (27.0-33.0); Mean Corpuscular Volume 85.8 fL (80.0-98.0); Mean Platelet Volume 9.6 fL (9.4-12.4); Monocytes Absolute Auto 0.9 X10*3/uL (0.1-1.2); Monocytes Percent Auto 6.2 % (2-11); Neutrophils Absolute Auto 10.1 x10*3/uL (2.0-8.3); Platelet Count 369 X10*3/uL (160-400); Red Blood Count 5.29 X10*6/uL (4.60-5.80); White Blood Count 14.3 X10*3/uL (4.8-10.8)
[2024-12-15] MEDS: ondansetron HCL 4 MG/2 ML VIAL IVPUSH (07:45)
--- NOTE | 2024-12-15 07:50 | PC.NURSE ---
This procedure writer assumed care of this Pt at this time. Pt A&Ox3, reports UQs pain, pressure feeling with nausea. Blood work drawn and sent to lab.
[2024-12-15 07:58] LABS: Alanine Aminotransferase 57 U/L (0-40); Albumin Level 4.2 g/dL (3.5-5.0); Alkaline Phosphatase 84 U/L (39-117); Anion Gap 16 (12-20); Aspartate Amino Transferase 47 U/L (5-37); Blood Urea Nitrogen 14 mg/dL (9-16); Calcium 8.6 mg/dL (8.4-10.2); Carbon Dioxide 20 mmol/L (22-29); Chloride 105 mmol/L (96-108); Estimated Glomerular Filt Rate > 60; Ethanol 158 mg/dL; Glucose Random 254 mg/dL (60-115); Lipase 15 U/L (8-78); Magnesium 1.7 mg/dL (1.6-2.6); Sodium 137 mmol/L (135-145)
--- NOTE | 2024-12-15 09:07 | ED_ITS ---
HPI - Alcohol General Chief Complaint: Abdominal Pain Stated Complaint: detoxing Time Seen by Provider: 12/15/24 08:35 Source: patient Mode of arrival: ambulatory Limitations: no limitations History of Present Illness ED Provider: HPI narrative: 49-year-old male, history of type 2 diabetes, history of alcohol use disorder, he is actually at binge drinker, has been bingeing for the past 5 days, presented with vomiting, not feeling well, he states he has had multiple episodes of going to a meetings and staying sober, no other drug use. By the time he was evaluated by me he has had benzodiazepines prior to that and he is feeling much better. Actually at the time of my evaluation he is clinically sober. Related Data Home Medications ?Medication ?Instructions ?Recorded ?Confirmed albuterol sulfate 90 mcg/actuation inhalation 11/04/24 aerosol inhaler atorvastatin 20 mg tablet 20 mg PO DAILY 11/04/24 11/04/24 empagliflozin 10 mg tablet 10 mg PO DAILY 11/04/24 11/04/24 (Jardiance) escitalopram oxalate 20 mg tablet 20 mg PO DAILY 11/04/24 11/04/24 fluticasone 250 mcg-salmeterol 50 1 ea inhalation BID 11/04/24 11/04/24 mcg/dose blistr powdr for inhalation insulin glargine 100 unit/mL (3 unit subcut 11/04/24 mL) subcutaneous pen (Basaglar KwikPen U-100 Insulin) lisinopril 20 mg tablet 20 mg PO DAILY 11/04/24 11/04/24 metoprolol succinate 100 mg 100 mg PO DAILY 11/04/24 11/04/24 tablet,extended release 24 hr Previous Rx's ?Medication ?Instructions ?Recorded chlordiazepoxide HCl 25 mg capsule See Rx Instructions .Route 12/15/24 .COMPLEX PRN alcohol withdrawal 4 days #15 caps ondansetron 4 mg disintegrating 4 mg PO Q8H PRN nausea and 12/15/24 tablet vomiting #4 tabs Allergies Allergy/AdvReac Type Severity Reaction Status Date / Time Iodinated Contrast Media AdvReac Rash Verified 12/15/24 06:25 [Contrast Dye] Review of Systems 2 Constitutional: Constitutional: Reports as per [facility] Social History Social History Alcohol intake: current Alcohol intake frequency: 3 or more drinks per day Alcohol type: hard liquor Smoked in Last 30 Days: No Use of substances other than those prescribed or required for medical reasons: No Advance Directives: No Do you have a plan to hurt others: No Plan Physical Exam ED Vital Signs: Vital Signs - 24 hr 12/15/24 06:23 12/15/24 07:18 Temperature 98.5 F 98.6 F Pulse Rate 97 84 Respiratory Rate 20 20 Blood Pressure 113/82 119/75 Pulse Oximetry 95 93 Oxygen Delivery Method Room Air Room Air BMI result Body Mass Index 32.8 Const Other: * Gen: ?Appears slightly older than stated age, no facial trauma, no trauma over the body * HEENT: PERRLA, EOMI, MMM, * Neck: Supple, no LAD * CV: RRR, no obvious murmurs appreciated * Resp: ?No wheezing rales rhonchi no stridor moving air well * Abd: ?Bowel sounds are present, no tenderness no rebound no rigidity * MSK: FROM, strength 5/5 all extremities * Skin: Warm, dry, intact, * Neuro: ?Alert and oriented x3, moving upper and lower extremities symmetrically, no obvious facial asymmetry noted Medical Decision Making Medical Decision Making MDM Narrative: At the time of my evaluation patient was asymptomatic, his blood work revealed no evidence for significant dehydration, electrolyte abnormalities, ketosis state, he is slightly hyperglycemic. We discussed whether he would be interested in detox, that time he is not interested, I feel comfortable discharging him home with a Librium detox at home, he is otherwise a highly functional individual who works, and has prolonged periods of sobriety. Differential Diagnosis Differential Diagnoses: The differential diagnosis associated with the presentation includes Alcohol withdrawals, dehydration, alcoholic ketosis, DKA, trauma Admission/Observation Consideration of admission/observation: Escalation of care including admission/observation considered Lab Data 12/15/24 07:40 12/15/24 07:40 Labs: Lab Results 12/15/24 12/15/24 Range/Units 06:57 07:40 WBC 14.3 H (4.8-10.8) X10*3/uL RBC 5.29 (4.60-5.80) X10*6/uL Hgb 16.3 (14.0-18.0) g/dl Hct 45.4 (42.0-52.0) % MCV 85.8 (80.0-98.0) fL MCH 30.8 (27.0-33.0) pg MCHC 35.9 (31.0-36.0) g/dl RDW 13.0 (11.0-16.0) % Plt Count 369 (160-400) X10*3/uL MPV 9.6 (9.4-12.4) fL Immature Gran % (Auto) 0.3 (0.0-0.4) % Neut % (Auto) 71.0 (45-73) % Lymph % (Auto) 21.2 (20-40) % [place] % (Auto) 6.2 (2-11) % Eos % (Auto) 0.8 (0-4) % Baso % (Auto) 0.5 (0-2) % Lymph # (Auto) 3.0 (1.2-4.9) X10*3/uL [place] # (Auto) 0.9 (0.1-1.2) X10*3/uL Eos # (Auto) 0.1 (0.0-0.4) X10*3/uL Baso # (Auto) 0.1 (0.0-0.2) X10*3/uL Abs Immat Gran (auto) 0.05 H (0.00-0.03) X10*3/uL Absolute Neuts (auto) 10.1 H (2.0-8.3) x10*3/uL Absolute Nucleated RBC 0.000 (0.0-0.012) X10*3/uL Nucleated RBC % (auto) 0.0 (0.0-0.2) /100WBC Sodium 137 (135-145) mmol/L Potassium 4.0 (3.3-5.1) mmol/L Chloride 105 (96-108) mmol/L Carbon Dioxide 20 L (22-29) mmol/L Anion Gap 16 (12-20) BUN 14 (9-16) mg/dL Creatinine 0.84 (0.5-1.4) mg/dL Estim Creat Clear Calc 151.0 Estimated GFR > 60 POC Glucose 257 H (60-115) mg/dL Random Glucose 254 H (60-115) mg/dL Calcium 8.6 (8.4-10.2) mg/dL Magnesium 1.7 (1.6-2.6) mg/dL Total Bilirubin 4.0 H (0.0-1.0) mg/dL AST 47 H (5-37) U/L ALT 57 H (0-40) U/L Alkaline Phosphatase 84 (39-117) U/L Total Protein 7.0 (6.5-8.0) g/dL Albumin 4.2 (3.5-5.0) g/dL Lipase 15 (8-78) U/L Ethyl Alcohol 158 mg/dL Medications Administered Discontinued Medications Generic Name Dose Route Start Last Admin Trade Name Raffyq PRN Reason Stop Dose Admin Lorazepam 2 mg 12/15/24 06:45 12/15/24 07:39 Lorazepam 1 Mg Tablet PO 12/15/24 06:46 2 mg ONCE ONE Administration Ondansetron HCl 4 mg 12/15/24 07:32 12/15/24 07:39 Ondansetron Odt 4 Mg Tab.Rapdis TRANSLINGU 12/15/24 07:33 Not Given ONCE ONE Ondansetron HCl 4 mg 12/15/24 07:41 12/15/24 07:45 Ondansetron Hcl 4 Mg/2 Ml Vial IVPUSH 12/15/24 07:42 4 mg ONCE ONE Administration Discharge Plan Discharge Clinical Impression: Alcohol use disorder, Type 2 diabetes mellitus Patient Disposition: Home, Self-Care Additional Instructions: Your prescribed Zofran to be used for nausea and vomiting as needed, stay well hydrated, do not mix alcohol with Librium, see instructions for use, you can use it as prescribed or on as needed basis, on the 1st day the 50 mg dose of Librium you can do just twice a day and not every 4 hours, and as we discussed do not drive while taking this medication it is a sedative, take the next 4 days off to detox, make plans for a meetings and generally prepare for sobriety. Your blood work has been reassuring, glucose somewhat elevated, make sure to take all your medications on regular basis Prescriptions: New chlordiazepoxide HCl 25 mg capsule See Rx Instructions .ROUTE .COMPLEX PRN (Reason: alcohol withdrawal) 4 Days Qty: 15 0RF Rx Instructions: 50 mg PO q6-12h on day 1; 25 mg PO q6h on day 2; 25 mg PO q12h on day 3; 25 mg PO at night on day 4. ondansetron 4 mg tablet,disintegrating 4 mg PO Q8H PRN (Reason: nausea and vomiting) Qty: 4 0RF No Action fluticasone propion-salmeterol 250-50 mcg/dose blister with device 1 ea inhalation BID atorvastatin 20 mg tablet 20 mg PO DAILY lisinopril 20 mg tablet 20 mg PO DAILY metoprolol succinate 100 mg tablet extended release 24 hr 100 mg PO DAILY albuterol sulfate 90 mcg/actuation HFA aerosol inhaler inhalation escitalopram oxalate 20 mg tablet 20 mg PO DAILY insulin glargine [Basaglar KwikPen U-100 Insulin] 100 unit/mL (3 mL) insulin pen subcut Jardiance 10 mg tablet 10 mg PO DAILY Print Language: Turkmen
--- NOTE | 2024-12-15 09:09 | PC.NURSE ---
Report received. Taken over care at this time.
[2024-12-15 09:37] VITALS: BP 117/79; PULSE 76; RESP 18; TEMP 36.9; O2SAT 96
== END 2024-12-15 09:38 | disposition home or self-care (01) ==
PROVIDERS: Emergency Provider Emergency Medicine
DX: F10.10 Alcohol abuse, uncomplicated (principal); Y90.6 Blood alcohol level of 120-199 mg/100 ml; E11.9 Type 2 diabetes mellitus without complications; Z79.4 Long term (current) use of insulin; Z79.899 Other long term (current) drug therapy
CPT/HCPCS: 36415; 80053; 80307; 82947; 83690; 83735; 85025; 96374; 99284; J2405

== ENCOUNTER 2024-12-19 04:12 | Inpatient (IN) | payer OTHER, SELFPAY ==
[2024-12-19] VITALS (9 sets, daily range): BP systolic 106–144; BP diastolic 61–86; PULSE 71–85; RESP 11–18; TEMP 36.5–37.2; O2SAT 96–100; BMI 35.0; BMI 33.6
--- NOTE | ~2024-12-19 | CT_ITS ---
CLINICAL HISTORY: Hepatic cirrhosis, portal hypertension - pt highly allergic to IV contrast, none g iven due tp allergy. Exam: CT abdomen and pelvis without intravenous contrast. Comparison: None. Findings: Study limited by lack of intravenous contrast. Specifically, evaluation of the vascular tree, solid abdominal organs, and gastrointestinal tract be limited without IV contrast administration. Patient reportedly has a severe contrast allergy precluding contrast administration. CT abdomen: Lung bases are clear. No acute bony lesions. Liver is enlarged measuring 21 cm in long axis. Low attenuation throughout the liver is indicative of fatty infiltration. No focal hepatic lesion identified on the noncontrast exam. Gallbladder is surgically absent. Mild ectasia of the extrahepatic common bile duct without discrete intraluminal filling defects. Punctate calcification within the spleen. Unenhanced spleen is otherwise unremarkable. Unenhanced pancreas, adrenal glands, and kidneys are unremarkable for acute findings. Small hiatal hernia. No dilated small bowel. Many of the small bowel loops are fluid-filled with scattered small bowel air-fluid levels. No free fluid or free air. CT pelvis: Urinary bladder is moderately distended. No bladder wall thickening or bladder calculi identified. Liquid stool within portions of the colon. Question wall thickening versus peristaltic wave of the hepatic flexure. Appendix is not visualized. No free fluid or free air. Impression: 1. Study limited by lack of intravenous contrast. 2. Hepatomegaly with diffuse fatty infiltration of the liver. 3. Fluid-filled small bowel with liquid stool within portions of the colon. This can be seen with a infectious or inflammatory enterocolitis. No findings of obstruction. This document has been electronically signed by: Jem Benitez MD on 12/19/2024 06:17:25
--- NOTE | 2024-12-19 04:32 | ED_ITS ---
HPI - General Adult General Chief complaint: ETOH/Substance Use Stated complaint: RT ARM PAIN Time Seen by Provider: 12/19/24 04:31 Source: patient Mode of arrival: EMS Limitations: no limitations History of Present Illness ED Provider: HPI narrative: Patient's history of alcoholism drinks vodka with history of depression been having binge drinking for last 1 week was seen here on 12/15/2024 went home on Librium comes back as not feeling well having abdominal pain with nausea and multiple episodes of vomiting since yesterday patient does drink heavy when he gets more depressed been to detox few months ago and was sober for about a month Related Data Home Medications ?Medication ?Instructions ?Recorded ?Confirmed albuterol sulfate 90 mcg/actuation inhalation 11/04/24 aerosol inhaler atorvastatin 20 mg tablet 20 mg PO DAILY 11/04/24 11/04/24 empagliflozin 10 mg tablet 10 mg PO DAILY 11/04/24 11/04/24 (Jardiance) escitalopram oxalate 20 mg tablet 20 mg PO DAILY 11/04/24 11/04/24 fluticasone 250 mcg-salmeterol 50 1 ea inhalation BID 11/04/24 11/04/24 mcg/dose blistr powdr for inhalation insulin glargine 100 unit/mL (3 unit subcut 11/04/24 mL) subcutaneous pen (Basaglar KwikPen U-100 Insulin) lisinopril 20 mg tablet 20 mg PO DAILY 11/04/24 11/04/24 metoprolol succinate 100 mg 100 mg PO DAILY 11/04/24 11/04/24 tablet,extended release 24 hr Previous Rx's ?Medication ?Instructions ?Recorded chlordiazepoxide HCl 25 mg capsule See Rx Instructions .Route 12/15/24 .COMPLEX PRN alcohol withdrawal 4 days #15 caps ondansetron 4 mg disintegrating 4 mg PO Q8H PRN nausea and 12/15/24 tablet vomiting #4 tabs Allergies Allergy/AdvReac Type Severity Reaction Status Date / Time Iodinated Contrast Media AdvReac Rash Verified 12/19/24 05:25 [Contrast Dye] Review of Systems 2 Review of Systems: Yes all other systems are reviewed and are negative PMFSH Social History Social History Alcohol intake: current Alcohol intake frequency: 3 or more drinks per day Alcohol type: hard liquor Smoked in Last 30 Days: No Use of substances other than those prescribed or required for medical reasons: No Substance Use Frequency: Chronic Longstanding Last Used Substance: Just Prior to Admission Advance Directives: No Advance Directives Information Provided: No Do you have a plan to hurt others: No Plan Physical Exam ED Vital Signs: Vital Signs - 24 hr 12/19/24 05:21 Temperature 98 F Pulse Rate 80 Respiratory Rate 16 Blood Pressure 134/86 Pulse Oximetry 98 Oxygen Delivery Method Room Air BMI result Body Mass Index 35.0 Appearance: Alert. Oriented X3. No acute distress. Eyes: PERRLA, No Nystagmus icteric++ ENT: Pharynx normal. Oral Mucosa moist Neck: Normal inspection. Neck supple. CVS: Normal heart rate and rhythm. Pulses normal. Respiratory: No respiratory distress. Equal air entry bilateral, no wheezing/rales/rhonchi Abdomen: Soft and mild epigastric tenderness no rebound tenderness or guarding Bowel sounds are present, hepatomegaly++, no CVA tenderness Skin: Skin warm and dry. Normal skin color. Normal skin turgor. Extremities: No lower extremity edema. No calf tenderness no hepatic flaps Neuro: Oriented X 3. No motor deficit. No sensory deficit.No cerebellar signs , cranial nerves II-XII intact Medications Administered Discontinued Medications Generic Name Dose Route Start Last Admin Trade Name Raffyq PRN Reason Stop Dose Admin Famotidine 20 mg 12/19/24 04:37 12/19/24 04:48 Famotidine/Pf 20 Mg/2 Ml Vial IVPUSH 12/19/24 04:38 20 mg ONCE ONE Administration Sodium Chloride 1,000 mls @ 999 mls/hr 12/19/24 04:32 12/19/24 06:21 Ns IV 12/19/24 05:32 Infused .Q1H1M ONE Infusion Sodium Chloride 1,000 mls @ 999 mls/hr 12/19/24 05:37 12/19/24 06:10 Ns IV 12/19/24 06:37 999 mls/hr .Q1H1M ONE Administration Midazolam HCl 2 mg 12/19/24 04:37 12/19/24 04:48 Midazolam Hcl 2 Mg/2 Ml Vial IVPUSH 12/19/24 04:38 2 mg ONCE ONE Administration Ondansetron HCl 4 mg 12/19/24 04:37 12/19/24 04:48 Ondansetron Hcl 4 Mg/2 Ml Vial IVPUSH 12/19/24 04:38 4 mg ONCE ONE Administration Phenobarbital Sodium 338 mg 12/19/24 06:00 12/19/24 06:10 Phenobarbital Sodium 130 Mg/Ml Im Once IM 12/19/24 06:01 338 mg ONCE ONE Administration Thiamine HCl 100 mg 12/19/24 04:44 12/19/24 05:20 Thiamine Hcl 100 Mg Tablet PO 12/19/24 04:45 100 mg ONCE ONE Administration Medical Decision Making Medical Decision Making MDM Narrative: Patient's alcoholic with elevated liver functions with increased depression anxiety requesting go for detox to stop drinking. Will start patient on phenobarb protocol admit to hospitalist service Differential Diagnosis Differential Diagnoses: The differential diagnosis associated with the presentation includes Alcoholic withdrawal/anxiety/depression Admission/Observation Consideration of admission/observation: Escalation of care including admission/observation considered Consult Healthcare Provider Management of the patient was discussed with: Hospitalist Lab Data MDM Lab Attestation statement: I reviewed the patient's lab results. 12/19/24 04:40 12/19/24 04:40 Labs: Lab Results 12/19/24 12/19/24 12/19/24 Range/Units 04:30 04:40 05:13 WBC 13.8 H (4.8-10.8) X10*3/uL RBC 5.29 (4.60-5.80) X10*6/uL Hgb 16.5 (14.0-18.0) g/dl Hct 44.9 (42.0-52.0) % MCV 84.9 (80.0-98.0) fL MCH 31.2 (27.0-33.0) pg MCHC 36.7 H (31.0-36.0) g/dl RDW 13.2 (11.0-16.0) % Plt Count 324 (160-400) X10*3/uL MPV 9.5 (9.4-12.4) fL Immature Gran % (Auto) 0.3 (0.0-0.4) % Neut % (Auto) 56.6 (45-73) % Lymph % (Auto) 34.7 (20-40) % [place] % (Auto) 6.4 (2-11) % Eos % (Auto) 1.3 (0-4) % Baso % (Auto) 0.7 (0-2) % Lymph # (Auto) 4.8 (1.2-4.9) X10*3/uL [place] # (Auto) 0.9 (0.1-1.2) X10*3/uL Eos # (Auto) 0.2 (0.0-0.4) X10*3/uL Baso # (Auto) 0.1 (0.0-0.2) X10*3/uL Abs Immat Gran (auto) 0.04 H (0.00-0.03) X10*3/uL Absolute Neuts (auto) 7.8 (2.0-8.3) x10*3/uL Absolute Nucleated RBC 0.000 (0.0-0.012) X10*3/uL Nucleated RBC % (auto) 0.0 (0.0-0.2) /100WBC PT 10.8 L (10.9-12.4) SEC INR 0.9 (0.9-1.1) Sodium 138 (135-145) mmol/L Potassium 4.1 (3.3-5.1) mmol/L Chloride 101 (96-108) mmol/L Carbon Dioxide 16 L (22-29) mmol/L Anion Gap 25 H (12-20) BUN 14 (9-16) mg/dL Creatinine 0.92 (0.5-1.4) mg/dL Estim Creat Clear Calc TNP Estimated GFR > 60 POC Glucose 191 H (60-115) mg/dL Fasting Glucose 173 H (60-99) mg/dL Calcium 8.5 (8.4-10.2) mg/dL Magnesium 2.0 (1.6-2.6) mg/dL Total Bilirubin 3.3 H (0.0-1.0) mg/dL AST 204 H (5-37) U/L ALT 123 H (0-40) U/L Alkaline Phosphatase 121 H (39-117) U/L Ammonia (13-55) umol/L Total Protein 7.7 (6.5-8.0) g/dL Albumin 4.5 (3.5-5.0) g/dL Lipase 27 (8-78) U/L Vitamin B12 585 (200-900) pg/mL Folate 10.6 (> or = 4.0) ng/mL Ethyl Alcohol 290 mg/dL 12/19/24 Range/Units 06:05 WBC (4.8-10.8) X10*3/uL RBC (4.60-5.80) X10*6/uL Hgb (14.0-18.0) g/dl Hct (42.0-52.0) % MCV (80.0-98.0) fL MCH (27.0-33.0) pg MCHC (31.0-36.0) g/dl RDW (11.0-16.0) % Plt Count (160-400) X10*3/uL MPV (9.4-12.4) fL Immature Gran % (Auto) (0.0-0.4) % Neut % (Auto) (45-73) % Lymph % (Auto) (20-40) % [place] % (Auto) (2-11) % Eos % (Auto) (0-4) % Baso % (Auto) (0-2) % Lymph # (Auto) (1.2-4.9) X10*3/uL [place] # (Auto) (0.1-1.2) X10*3/uL Eos # (Auto) (0.0-0.4) X10*3/uL Baso # (Auto) (0.0-0.2) X10*3/uL Abs Immat Gran (auto) (0.00-0.03) X10*3/uL Absolute Neuts (auto) (2.0-8.3) x10*3/uL Absolute Nucleated RBC (0.0-0.012) X10*3/uL Nucleated RBC % (auto) (0.0-0.2) /100WBC PT (10.9-12.4) SEC INR (0.9-1.1) Sodium (135-145) mmol/L Potassium (3.3-5.1) mmol/L Chloride (96-108) mmol/L Carbon Dioxide (22-29) mmol/L Anion Gap (12-20) BUN (9-16) mg/dL Creatinine (0.5-1.4) mg/dL Estim Creat Clear Calc Estimated GFR POC Glucose (60-115) mg/dL Fasting Glucose (60-99) mg/dL Calcium (8.4-10.2) mg/dL Magnesium (1.6-2.6) mg/dL Total Bilirubin (0.0-1.0) mg/dL AST (5-37) U/L ALT (0-40) U/L Alkaline Phosphatase (39-117) U/L Ammonia 40 (13-55) umol/L Total Protein (6.5-8.0) g/dL Albumin (3.5-5.0) g/dL Lipase (8-78) U/L Vitamin B12 (200-900) pg/mL Folate (> or = 4.0) ng/mL Ethyl Alcohol mg/dL Independent Interpretation I performed an independent interpretation of an: EKG and CT Scan Radiology Impression Discussion of test interpretation with radiology: I have reviewed the radiologist's reading. Radiologist Impression: [place] [id number] CT Scan Report Signed Patient: Cooper Fulton MR#: [id number] : 1975 Acct:[id number] Age/Sex: 49 / M ADM Date: 12/19/24 Loc: .ED Attending Dr: Ordering Physician: Robert Mattson MD Date of Service: 12/19/24 Procedure(s): CT abdomen pelvis wo IV con Accession Number(s): [id number] cc: Physician,None ; Robert Mattson MD~ Report Number: [id number]: Total DLP = 788.00 mGy-cm CLINICAL HISTORY: Hepatic cirrhosis, portal hypertension - pt highly allergic to IV contrast, none given due tp allergy. Exam: CT abdomen and pelvis without intravenous contrast. Comparison: None. Findings: Study limited by lack of intravenous contrast. Specifically, evaluation of the vascular tree, solid abdominal organs, and gastrointestinal tract be limited without IV contrast administration. Patient reportedly has a severe contrast allergy precluding contrast administration. CT abdomen: Lung bases are clear. No acute bony lesions. Liver is enlarged measuring 21 cm in long axis. Low attenuation throughout the liver is indicative of fatty infiltration. No focal hepatic lesion identified on the noncontrast exam. Gallbladder is surgically absent. Mild ectasia of the extrahepatic common bile duct without discrete intraluminal filling defects. Punctate calcification within the spleen. Unenhanced spleen is otherwise unremarkable. Unenhanced pancreas, adrenal glands, and kidneys are unremarkable for acute findings. Small hiatal hernia. No dilated small bowel. Many of the small bowel loops are fluid-filled with scattered small bowel air-fluid levels. No free fluid or free air. CT pelvis: Urinary bladder is moderately distended. No bladder wall thickening or bladder calculi identified. Liquid stool within portions of the colon. Question wall thickening versus peristaltic wave of the hepatic flexure. Appendix is not visualized. No free fluid or free air. Impression: 1. Study limited by lack of intravenous contrast. 2. Hepatomegaly with diffuse fatty infiltration of the liver. 3. Fluid-filled small bowel with liquid stool within portions of the colon. This can be seen with a infectious or inflammatory enterocolitis. No findings of obstruction. This document has been electronically signed by: Jem Benitez MD on 12/19/2024 06:17:25 Discharge Plan Discharge Clinical Impression: Alcohol withdrawal syndrome, Depression Patient Disposition: Admitted As Inpatient Print Language: Korean
[2024-12-19 04:34] LABS: Glucose, Whole Blood 191 mg/dL (60-115)
[2024-12-19 04:44] LABS: MANUAL DIFF FLAG NO
[2024-12-19 04:45] LABS: Basophils Absolute Auto 0.1 X10*3/uL (0.0-0.2); Basophils Percent Auto 0.7 % (0-2); Eosinophils Absolute Auto 0.2 X10*3/uL (0.0-0.4); Eosinophils Percent Auto 1.3 % (0-4); Hematocrit 44.9 % (42.0-52.0); Hemoglobin 16.5 g/dl (14.0-18.0); Imm Gran Abs Auto 0.04 X10*3/uL (0.00-0.03); Imm Gran Pct Auto 0.3 % (0.0-0.4); Lymphocytes Absolute Auto 4.8 X10*3/uL (1.2-4.9); Lymphocytes Percent Auto 34.7 % (20-40); Mean Corpuscular HGB Conc 36.7 g/dl (31.0-36.0); Mean Corpuscular Hemoglobin 31.2 pg (27.0-33.0); Mean Corpuscular Volume 84.9 fL (80.0-98.0); Mean Platelet Volume 9.5 fL (9.4-12.4); Monocytes Absolute Auto 0.9 X10*3/uL (0.1-1.2); Monocytes Percent Auto 6.4 % (2-11); Neutrophils Absolute Auto 7.8 x10*3/uL (2.0-8.3); Neutrophils Percent Auto 56.6 % (45-73); Platelet Count 324 X10*3/uL (160-400); Red Blood Count 5.29 X10*6/uL (4.60-5.80); Red Cell Distribution Width 13.2 % (11.0-16.0); White Blood Count 13.8 X10*3/uL (4.8-10.8)
[2024-12-19] MEDS: Famotidine/PF 20 MG/2 ML VIAL IVPUSH ×3 (04:48→21:38)
[2024-12-19] MEDS: Midazolam HCl 2 MG/2 ML VIAL IVPUSH (04:48)
[2024-12-19] MEDS: 0.9 % Sodium Chloride 1,000 ML 999 ML IV ×2 (04:48→06:10)
[2024-12-19] MEDS: ondansetron HCL 4 MG/2 ML VIAL IVPUSH (04:48)
[2024-12-19 05:04] LABS: Alanine Aminotransferase 123 U/L (0-40); Albumin Level 4.5 g/dL (3.5-5.0); Alkaline Phosphatase 121 U/L (39-117); Anion Gap 25 (12-20); Aspartate Amino Transferase 204 U/L (5-37); Bilirubin Total 3.3 mg/dL (0.0-1.0); Blood Urea Nitrogen 14 mg/dL (9-16); Calcium 8.5 mg/dL (8.4-10.2); Carbon Dioxide 16 mmol/L (22-29); Chloride 101 mmol/L (96-108); Estimated Glomerular Filt Rate > 60; Glucose Fasting 173 mg/dL (60-99); Lipase 27 U/L (8-78); Potassium 4.1 mmol/L (3.3-5.1); Sodium 138 mmol/L (135-145); Total Protein 7.7 g/dL (6.5-8.0)
[2024-12-19] MEDS: Thiamine HCL 100 MG TABLET PO ×2 (05:20→10:07)
[2024-12-19 05:28] LABS: INTERNATIONAL NORM RATIO 0.9 (0.9-1.1); Prothrombin Time 10.8 SEC (10.9-12.4)
--- OUTSIDE RECORDS SUMMARY | 2024-12-19 05:45 | XMS_ITS | Encounter Summary ---
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 [...] on filedocumented in this encounter Care Teams Event Planning Manager Relationship Specialty Start Date End Date Artie Grant MD [address] [place] [phone] PCP - General 12/6/23 Artie Grant MD [address] [place] [phone] PCP - Backup PCP Family Medicine 08/10/23 documented as of this encounter
[2024-12-19 05:52] LABS: Ethanol 290 mg/dL
[2024-12-19 06:05] LABS: Folate 10.6 ng/mL (> or = 4.0); Vitamin B12 585 pg/mL (200-900)
[2024-12-19] MEDS: PHENobarbitaL sodium 130 MG/ML IM ONCE 338 MG IM (06:10)
[2024-12-19 06:19] LABS: Ammonia 40 umol/L (13-55)
[2024-12-19 08:01] LABS: Glucose, Whole Blood 133 mg/dL (60-115)
--- NOTE | 2024-12-19 08:23 | PHA.MEDREC ---
Addendum entered by Jimmy Corona PharmD 12/19/24 08:28: reviewed Original Note: Pharmacy Consult ? Medication Reconciliation Pharmacy has completed the medication reconciliation. Spoke with pt and he confirmed his medications. Pt confirmed his Basaglar KwikPen and confirmed he has been injection 35 units daily.
[2024-12-19] MEDS: Lactated Ringers 1,000 ML 100 ML IVCONT ×2 (08:29→18:30)
[2024-12-19] MEDS: PHENobarbitaL sodium 130 MG/ML VIAL IM Q3Hx2 247 MG IM ×2 (08:30→12:26)
--- NOTE | 2024-12-19 08:45 | PM.IMHP ---
History of Present Illness Date of Service: 12/19/24 Chief Complaint: nausea, vomiting, abdominal pain, alcohol withdrawal In his is a 49-year-old male with a past medical history of alcohol abuse and dependence with prior alcohol withdrawal seizures and DTs, DM, HTN, GERD who presents to the emergency room with complaints of epigastric and mid abdominal pain with associated nausea and vomiting of several days duration. The patient endorses drinking 3 pt of vodka daily for the past 1 month. Prior to this, the patient reports a 3 year period of sobriety. Patient was in the emergency room on 12/15 at which point he was discharged on Librium to manage his alcohol withdrawal. He now returns with worsening symptoms. In the emergency room the patient was noted to have increasing CIWA above 10, he was initiated on Noemy tall. Blood work showed evidence of alcoholic liver disease with a bilirubin over 3 and AST and ALT in the 200s/100s. CT scan of the abdomen and pelvis was negative for acute pancreatitis. Showed alcoholic liver disease. Chemistry showed acidosis with a bicarb of 16. He was treated with 3 L of fluid. He will now be admitted for further workup and treatment. Review of Systems Review of Systems: Negative except HPI/interval history. [facility] Social History Alcohol intake: current Alcohol intake frequency: 3 or more drinks per day Alcohol type: hard liquor Smoked in Last 30 Days: No Use of substances other than those prescribed or required for medical reasons: No Substance Use Frequency: Chronic Longstanding Last Used Substance: Just Prior to Admission Advance Directives: No Advance Directives Information Provided: No Do you have a plan to hurt others: No Plan Meds Allergies Allergy/AdvReac Type Severity Reaction Status Date / Time Iodinated Contrast Media AdvReac Rash Verified 12/19/24 05:25 [Contrast Dye] Active Medications: Current Medications Lactated Ringer's (Lr) 1,000 mls @ 100 mls/hr IVCONT .Q10H TRACY Stop: 12/20/24 04:14 Last Admin: 12/19/24 08:29 Dose: 100 mls/hr Pharmacy Consult (Consult Rx Etoh Phenob Im/Po) 1 each MISCELLANE ONCE PRN; Protocol PRN Reason: Consult order Phenobarbital (Phenobarbital 30 Mg Tablet) 60 mg PO [facility] Stop: 12/21/24 08:01 Phenobarbital (Phenobarbital 30 Mg Tablet) 30 mg PO [facility] Stop: 12/23/24 08:01 Phenobarbital (Phenobarbital 30 Mg Tablet) 30 mg PO DAILY [facility] Stop: 12/25/24 09:01 Phenobarbital Sodium (Phenobarbital Sodium 130 Mg/Ml Vial Im Q3hx2) 247 mg IM Q3H TRACY Stop: 12/19/24 12:01 Last Admin: 12/19/24 08:30 Dose: 247 mg Home Medications ?Medication ?Instructions ?Recorded ?Confirmed ?Last Taken ?Type albuterol sulfate 90 mcg/actuation 2 inh inhalation Q6H PRN Shortness 11/04/24 12/19/24 11/03/24 06:00 History aerosol inhaler Of Breath Or Wheezing atorvastatin 20 mg tablet 20 mg PO DAILY 11/04/24 12/19/24 12/18/24 History escitalopram oxalate 20 mg tablet 20 mg PO DAILY 11/04/24 12/19/24 12/18/24 History fluticasone 250 mcg-salmeterol 50 1 ea inhalation BID 11/04/24 12/19/24 12/18/24 History mcg/dose blistr powdr for inhalation insulin glargine 100 unit/mL (3 35 unit subcut DAILY 11/04/24 12/19/24 12/18/24 History mL) subcutaneous pen (Edmundoaglai Gonzalez U-100 Insulin) lisinopril 20 mg tablet 20 mg PO DAILY 11/04/24 12/19/24 12/18/24 History metoprolol succinate 100 mg 100 mg PO DAILY 11/04/24 12/19/24 12/18/24 History tablet,extended release 24 hr loratadine 10 mg tablet 10 mg PO DAILY 12/19/24 12/19/24 12/18/24 History omeprazole magnesium 20 mg 20 mg PO DAILY@0630 12/19/24 12/19/24 12/18/24 History tablet,delayed release (Prilosec OTC) Physical Exam Vital Signs and Narrative: Vital Signs: Last Vital Signs Temp 98.2 F 12/19/24 08:43 Pulse 71 12/19/24 08:43 Resp 11 L 12/19/24 08:43 BP 116/62 12/19/24 08:43 Pulse Ox 98 12/19/24 08:43 O2 Del Method Room Air 12/19/24 08:43 BMI result Body Mass Index 35.0 Const: Other: Constitutional - Awake and Alert, No apparent distress Eyes - PERRLA, EOMI Cardiovascular - S1S2, RRR, No edema Respiratory - Normal lung expansion, Normal respiratory effort, No respiratory distress, CTA bilaterally Gastrointestinal - epigastric TTP without rebound; no RUQ TTP - No CVA tenderness Extremities - no calf tenderness bilaterally, no swelling Musculoskeletal - Normal inspection, normal ROM Skin - Warm/Dry Neurological - Alert & oriented x3, No focal deficit; + tremors b/l UE; negative asterixis Psychological - Appropriate affect Results Labs 12/19/24 04:40 12/19/24 04:40 Labs: Laboratory Results - last 24 hr 12/19/24 12/19/24 12/19/24 04:30 04:40 05:13 MCV 84.9 MCH 31.2 MCHC 36.7 H RDW 13.2 Plt Count 324 MPV 9.5 Immature Gran % (Auto) 0.3 Neut % (Auto) 56.6 Lymph % (Auto) 34.7 [place] % (Auto) 6.4 Eos % (Auto) 1.3 Baso % (Auto) 0.7 Lymph # (Auto) 4.8 [place] # (Auto) 0.9 Eos # (Auto) 0.2 Baso # (Auto) 0.1 Abs Immat Gran (auto) 0.04 H Absolute Neuts (auto) 7.8 Absolute Nucleated RBC 0.000 Nucleated RBC % (auto) 0.0 PT 10.8 L INR 0.9 Anion Gap 25 H Estim Creat Clear Calc TNP Estimated GFR > 60 POC Glucose 191 H Fasting Glucose 173 H Calcium 8.5 Magnesium 2.0 Total Bilirubin 3.3 H AST 204 H ALT 123 H Alkaline Phosphatase 121 H Ammonia Total Protein 7.7 Albumin 4.5 Lipase 27 Vitamin B12 585 Folate 10.6 Ethyl Alcohol 290 12/19/24 12/19/24 06:05 07:57 MCV MCH MCHC RDW Plt Count MPV Immature Gran % (Auto) Neut % (Auto) Lymph % (Auto) [place] % (Auto) Eos % (Auto) Baso % (Auto) Lymph # (Auto) [place] # (Auto) Eos # (Auto) Baso # (Auto) Abs Immat Gran (auto) Absolute Neuts (auto) Absolute Nucleated RBC Nucleated RBC % (auto) PT INR Anion Gap Estim Creat Clear Calc Estimated GFR POC Glucose 133 H Fasting Glucose Calcium Magnesium Total Bilirubin AST ALT Alkaline Phosphatase Ammonia 40 Total Protein Albumin Lipase Vitamin B12 Folate Ethyl Alcohol Assessment and Plan (1) Alcohol withdrawal syndrome: Status: Acute Plan 49 yo M with AUD with a reported 3 year history of sobriety, with recent relapse (last 1 month) with daily drinking of 3 pints of vodka. Presenting with n/v abd pain and signs of alcohol withdrawal. 1. Alcohol use disorder with Acute alcohol withdrawal CIWA increasing since arrival -- initiated on phenobarb monitor lytes no confusion noted at this time -- monitor d/w him re: addiction medicine consult. He is undecided and will let us know if hes interested in speaking with them. Cessation has been encouraged 2. Alcoholic gastritis IV Pepcic IVF clear if he can tolerate, advance slowly 3. Probably alcohol hepatitis Bili nearly 4; about obstructive cause given no RUQ symptoms. Also s/p CCK; if things change, consider RUQ u/s will trend consider GI consult 4. Metabolic acidosis likely due to poor oral intake will hydrate and re-eval 5. DM not on orals or meal time insulin hold long acting for now; check POC and sliding scale if needed 6. HTN BP low/normal currently; hold antihypertensives for now 7. HLD hold statin 8. Mood continue baseline meds Full Code DVT pptx - lovenox Pt with acute alcohol withdrawal complicated by acute alcoholic gastritis, metabolic acidosis and alcoholic hepatitis. Therefore expected to require at a min 2 midnights in the hospital for treatment and therefore, will be admitted as inpt. Quality Stroke Does the patient have a stroke diagnosis?: No VTE Prior VTE?: No VTE Risk Level:: Medical - moderate - high VTE Device Contraindication: N/A - Device Ordered VTE Drug Contraindication: N/A - Med Ordered
[2024-12-19] MEDS: Multivitamin TABLET 1 TAB PO (10:07)
[2024-12-19 12:55] LABS: Glucose, Whole Blood 119 mg/dL (60-115)
[2024-12-19 12:55] LABS: Anion Gap 18 (12-20); Blood Urea Nitrogen 12 mg/dL (9-16); Carbon Dioxide 20 mmol/L (22-29); Chloride 102 mmol/L (96-108); Creatinine Clr Calc Pharmacy 192.8; Estimated Glomerular Filt Rate > 60; Glucose Random 119 mg/dL (60-115); Potassium 3.5 mmol/L (3.3-5.1); Sodium 136 mmol/L (135-145)
[2024-12-19 13:40] LABS: Glucose, Whole Blood 189 mg/dL (60-115)
[2024-12-19] MEDS: PHENobarbitaL sodium 130 MG/ML VIAL IM ×2 (14:57→18:26)
[2024-12-19 16:24] LABS: Glucose, Whole Blood 210 mg/dL (60-115)
[2024-12-19] MEDS: Metoprolol Succinate ER 50 MG TAB.ER.24H PO (16:26)
[2024-12-19] MEDS: PHENobarbitaL sodium 130 MG/ML VIAL 260 MG IM (19:46)
[2024-12-19 21:05] LABS: Glucose, Whole Blood 179 mg/dL (60-115)
[2024-12-19] MEDS: Insulin Lispro 100 UNIT/ML 3 ML VIAL SUBCUT (21:36)
[2024-12-19] MEDS: Acetaminophen 325 MG TABLET 650 MG PO (21:55)
[2024-12-20] VITALS (7 sets, daily range): BP systolic 115–135; BP diastolic 58–74; PULSE 69–78; RESP 16–20; TEMP 36.3–37; O2SAT 94–100
[2024-12-20 06:00] LABS: MANUAL DIFF FLAG NO
[2024-12-20 06:04] LABS: Basophils Absolute Auto 0.1 X10*3/uL (0.0-0.2); Basophils Percent Auto 0.8 % (0-2); Eosinophils Absolute Auto 0.2 X10*3/uL (0.0-0.4); Eosinophils Percent Auto 2.6 % (0-4); Hematocrit 36.7 % (42.0-52.0); Hemoglobin 13.4 g/dl (14.0-18.0); Imm Gran Abs Auto 0.01 X10*3/uL (0.00-0.03); Imm Gran Pct Auto 0.2 % (0.0-0.4); Lymphocytes Absolute Auto 2.1 X10*3/uL (1.2-4.9); Lymphocytes Percent Auto 33.4 % (20-40); Mean Corpuscular HGB Conc 36.5 g/dl (31.0-36.0); Mean Corpuscular Hemoglobin 30.9 pg (27.0-33.0); Mean Corpuscular Volume 84.8 fL (80.0-98.0); Mean Platelet Volume 10.1 fL (9.4-12.4); Monocytes Absolute Auto 0.4 X10*3/uL (0.1-1.2); Monocytes Percent Auto 6.7 % (2-11); Neutrophils Absolute Auto 3.5 x10*3/uL (2.0-8.3); Neutrophils Percent Auto 56.3 % (45-73); Platelet Count 176 X10*3/uL (160-400); Red Blood Count 4.33 X10*6/uL (4.60-5.80); Red Cell Distribution Width 12.9 % (11.0-16.0); White Blood Count 6.2 X10*3/uL (4.8-10.8)
[2024-12-20] MEDS: Omeprazole 20 MG CAPSULE.DR PO ×2 (06:21→17:13)
[2024-12-20 06:23] LABS: Alanine Aminotransferase 70 U/L (0-40); Albumin Level 3.5 g/dL (3.5-5.0); Alkaline Phosphatase 90 U/L (39-117); Anion Gap 13 (12-20); Aspartate Amino Transferase 89 U/L (5-37); Bilirubin Total 4.6 mg/dL (0.0-1.0); Blood Urea Nitrogen 5 mg/dL (9-16); Calcium 7.9 mg/dL (8.4-10.2); Carbon Dioxide 23 mmol/L (22-29); Chloride 103 mmol/L (96-108); Creatinine Clr Calc Pharmacy 197.8; Estimated Glomerular Filt Rate > 60; Glucose Random 142 mg/dL (60-115); Magnesium 1.5 mg/dL (1.6-2.6); Potassium 3.1 mmol/L (3.3-5.1); Sodium 136 mmol/L (135-145); Total Protein 5.6 g/dL (6.5-8.0)
[2024-12-20 07:20] LABS: Glucose, Whole Blood 146 mg/dL (60-115)
[2024-12-20] MEDS: PHENobarbitaL 30 MG TABLET 60 MG PO ×2 (07:42→20:44)
[2024-12-20] MEDS: Potassium Chloride Packet 20 MEQ PACKET 40 MEQ PO ×2 (07:57→10:26)
[2024-12-20] MEDS: Escitalopram Oxalate 20 MG TABLET PO (08:41)
[2024-12-20] MEDS: Multivitamin TABLET 1 TAB PO (08:41)
[2024-12-20] MEDS: Thiamine HCL 100 MG TABLET PO (08:41)
[2024-12-20] MEDS: Metoprolol Succinate ER 50 MG TAB.ER.24H PO (08:41)
[2024-12-20] MEDS: Famotidine/PF 20 MG/2 ML VIAL IVPUSH (09:06)
[2024-12-20 11:21] LABS: Glucose, Whole Blood 239 mg/dL (60-115)
[2024-12-20] MEDS: Insulin Lispro 100 UNIT/ML 3 ML VIAL SUBCUT ×3 (11:56→20:44)
[2024-12-20] MEDS: Magnesium Oxide 400 MG TABLET PO ×2 (11:56→18:07)
--- NOTE | 2024-12-20 12:13 | P.PNIM_ITS ---
Subjective Subjective Date of Service: 12/20/24 Interval History: seen and evlauated feels better was able to sleep overnight tremors improved no other events Review of Systems Review of Systems: Yes all other systems are reviewed and are negative Physical Exam 2 Vital Signs: Vital Signs: Last Vital Signs Temp 97.4 F 12/20/24 11:38 Pulse 69 12/20/24 11:38 Resp 16 12/20/24 11:38 BP 118/65 12/20/24 11:38 Pulse Ox 96 12/20/24 11:38 O2 Del Method Room Air 12/20/24 11:38 BMI result Body Mass Index 33.6 Const: Other: Constitutional : interactive, not in distress Cardiovascular : no JVP, no lower extremity edema Respiratory : bilateral chest movement, not in resp distress Gastrointestinal: soft, lax, Non tender Skin : Warm, Dry Neurological : Alert & oriented , No focal deficit Objective Data Active Medications Acetaminophen (Acetaminophen 325 Mg Tablet) 650 mg PO Q6H PRN PRN Reason: Pain, Mild 1-3,fever,headache Last Admin: 12/19/24 21:55 Dose: 650 mg Documented By: HEMA Escitalopram Oxalate (Escitalopram Oxalate 20 Mg Tablet) 20 mg PO DAILY [facility] Last Admin: 12/20/24 08:41 Dose: 20 mg Documented By: GRIS Famotidine (Famotidine/Pf 20 Mg/2 Ml Vial) 20 mg IVPUSH BID [facility] Last Admin: 12/20/24 09:06 Dose: 20 mg Documented By: GRIS Insulin Human Lispro (Insulin Lispro 100 Unit/Ml 3 Ml Vial) 0 unit SUBCUT QIDACHS [facility]; Protocol Last Admin: 12/20/24 11:56 Dose: 4 unit Documented By: MARIA TERESA Magnesium Oxide ([facility] 400 Mg Tablet) [facility] Last Admin: 12/20/24 11:56 Dose: 400 mg Documented By: MARIA TERESA Metoprolol Succinate (Metoprolol Succinate Er 50 Mg Tab.Er.24h) 50 mg PO DAILY [facility]; Protocol Last Admin: 12/20/24 08:41 Dose: 50 mg Documented By: GRIS Multivitamins/Vitamin C (Multivitamin Tablet) 1 tab PO DAILY [facility] Last Admin: 12/20/24 08:41 Dose: 1 tab Documented By: GRIS Omeprazole (Omeprazole 20 Mg Capsule.Dr) 20 mg PO DAILY@0630 [facility] Last Admin: 12/20/24 06:21 Dose: 20 mg Documented By: HEMA Ondansetron HCl (Ondansetron Hcl 4 Mg/2 Ml Vial) 4 mg IVPUSH Q6H PRN PRN Reason: Nausea and Vomiting Pharmacy Consult (Consult Rx Etoh Phenob Im/Po) 1 each MISCELLANE ONCE PRN; Protocol PRN Reason: Consult order Phenobarbital (Phenobarbital 30 Mg Tablet) 60 mg PO [facility] Stop: 12/21/24 08:01 Last Admin: 12/20/24 07:42 Dose: 60 mg Documented By: GRIS Phenobarbital (Phenobarbital 30 Mg Tablet) 30 mg PO [facility] Stop: 12/23/24 08:01 Phenobarbital (Phenobarbital 30 Mg Tablet) 30 mg PO DAILY [facility] Stop: 12/25/24 09:01 Phenobarbital Sodium (Phenobarbital Sodium 130 Mg/Ml Vial) 130 mg IM ONCE PRN PRN Reason: Alcohol Withdrawal Thiamine HCl (Thiamine Hcl 100 Mg Tablet) 100 mg PO DAILY [facility] Last Admin: 12/20/24 08:41 Dose: 100 mg Documented By: GRIS Labs 12/20/24 05:39 12/20/24 05:39 Labs: Laboratory Results - last 24 hr 12/19/24 12/19/24 12/19/24 12:16 12:52 13:35 MCV MCH MCHC RDW Plt Count MPV Immature Gran % (Auto) Neut % (Auto) Lymph % (Auto) [place] % (Auto) Eos % (Auto) Baso % (Auto) Lymph # (Auto) [place] # (Auto) Eos # (Auto) Baso # (Auto) Abs Immat Gran (auto) Absolute Neuts (auto) Absolute Nucleated RBC Nucleated RBC % (auto) Anion Gap 18 Estim Creat Clear Calc 192.8 Estimated GFR > 60 POC Glucose 119 H 189 H Random Glucose 119 H Calcium 8.0 L Magnesium Total Bilirubin AST ALT Alkaline Phosphatase Total Protein Albumin 12/19/24 12/19/24 12/20/24 15:41 20:58 05:39 MCV Cancelled MCH MCHC RDW Plt Count MPV Immature Gran % (Auto) Neut % (Auto) Lymph % (Auto) [place] % (Auto) Eos % (Auto) Baso % (Auto) Lymph # (Auto) [place] # (Auto) Eos # (Auto) Baso # (Auto) Abs Immat Gran (auto) Absolute Neuts (auto) Absolute Nucleated RBC Nucleated RBC % (auto) Anion Gap Estim Creat Clear Calc Estimated GFR POC Glucose 210 H 179 H Random Glucose Calcium Magnesium Total Bilirubin AST ALT Alkaline Phosphatase Total Protein Albumin 12/20/24 12/20/24 12/20/24 05:39 05:39 05:39 MCV 84.8 MCH Cancelled 30.9 MCHC Cancelled 36.5 H RDW Cancelled Plt Count MPV Immature Gran % (Auto) Neut % (Auto) Lymph % (Auto) [place] % (Auto) Eos % (Auto) Baso % (Auto) Lymph # (Auto) [place] # (Auto) Eos # (Auto) Baso # (Auto) Abs Immat Gran (auto) Absolute Neuts (auto) Absolute Nucleated RBC Nucleated RBC % (auto) Anion Gap Estim Creat Clear Calc Estimated GFR POC Glucose Random Glucose Calcium Magnesium Total Bilirubin AST ALT Alkaline Phosphatase Total Protein Albumin 12/20/24 12/20/24 12/20/24 05:39 05:39 05:39 MCV MCH MCHC RDW 12.9 Plt Count Cancelled 176 D MPV Cancelled 10.1 Immature Gran % (Auto) 0.2 Neut % (Auto) 56.3 Lymph % (Auto) 33.4 [place] % (Auto) 6.7 Eos % (Auto) 2.6 Baso % (Auto) 0.8 Lymph # (Auto) 2.1 [place] # (Auto) 0.4 Eos # (Auto) 0.2 Baso # (Auto) 0.1 Abs Immat Gran (auto) 0.01 Absolute Neuts (auto) 3.5 Absolute Nucleated RBC Cancelled Nucleated RBC % (auto) Anion Gap Estim Creat Clear Calc Estimated GFR POC Glucose Random Glucose Calcium Magnesium Total Bilirubin AST ALT Alkaline Phosphatase Total Protein Albumin 12/20/24 12/20/24 12/20/24 05:39 05:39 07:15 MCV MCH MCHC RDW Plt Count MPV Immature Gran % (Auto) Neut % (Auto) Lymph % (Auto) [place] % (Auto) Eos % (Auto) Baso % (Auto) Lymph # (Auto) [place] # (Auto) Eos # (Auto) Baso # (Auto) Abs Immat Gran (auto) Absolute Neuts (auto) Absolute Nucleated RBC 0.000 Nucleated RBC % (auto) Cancelled 0.0 Anion Gap 13 Estim Creat Clear Calc 197.8 Estimated GFR > 60 POC Glucose 146 H Random Glucose 142 H Calcium 7.9 L Magnesium 1.5 L Total Bilirubin 4.6 H AST 89 H ALT 70 H Alkaline Phosphatase 90 Total Protein 5.6 L Albumin 3.5 12/20/24 11:16 MCV MCH MCHC RDW Plt Count MPV Immature Gran % (Auto) Neut % (Auto) Lymph % (Auto) [place] % (Auto) Eos % (Auto) Baso % (Auto) Lymph # (Auto) [place] # (Auto) Eos # (Auto) Baso # (Auto) Abs Immat Gran (auto) Absolute Neuts (auto) Absolute Nucleated RBC Nucleated RBC % (auto) Anion Gap Estim Creat Clear Calc Estimated GFR POC Glucose 239 H Random Glucose Calcium Magnesium Total Bilirubin AST ALT Alkaline Phosphatase Total Protein Albumin Assessment and Plan (1) Depression: Status: Acute (2) Alcohol withdrawal syndrome: Status: Acute Plan 49 yo M with AUD with a reported 3 year history of sobriety, with recent relapse (last 1 month) with daily drinking of 3 pints of vodka. Presenting with n/v abd pain and signs of alcohol withdrawal. Alcohol use disorder with Acute alcohol withdrawal CIWA trending down on phenobarb, give PRN if needed addiction medicine consult Cessation has been encouraged Alcoholic gastritis IV Pepcic IVF clear if he can tolerate, advance slowly possible acute alcohol hepatitis Bili 4.6 AST, ALT trending down [place] score 3.5 consider GI consult if worsening Metabolic acidosis, acute likely due to poor oral intake, improved Type II DM hold long acting for now POC and sliding scale HTN hold antihypertensives for now HLD hold statin Mood continue baseline meds Full Code DVT pptx - lovenox Pt with acute alcohol withdrawal complicated by acute alcoholic gastritis, metabolic acidosis and alcoholic hepatitis. Therefore expected to require overnight in the hospital for treatment and therefore, will be admitted as inpt. Quality Stroke Does the patient have a stroke diagnosis?: No VTE Prior VTE?: No VTE Risk Level:: Medical - moderate - high VTE Device Contraindication: N/A - Device Ordered VTE Drug Contraindication: N/A - Med Ordered
--- NOTE | 2024-12-20 16:13 | MHC.CM.PN ---
PATIENT LIVES IN AN APT W/ ROOMMATE. FUNCTIONALLY INDEPENDENT. DENIES USE OF DME OR SERVICES. + THRIVE , ETOH, RESOURCE GUIDE PROVIDED. COMPLETED HCP NAMING [facility]'S MOTHER, KIRBY, AND BROTHER, JOCE. PCP DR. PATTON [place]. REPORTS HE IS LOOKING FOR A LOCAL PCP, HE RECENTLY MOVED TO THE AREA. [facility] BROCHURE PROVIDED. DP: GOAL IS HOME SELF CARE VIA [facility]FT. CM WILL CONTINUE TO FOLLOW.
[2024-12-20] MEDS: Naltrexone HCl 50 MG TABLET 25 MG PO (16:25)
[2024-12-20 16:32] LABS: Glucose, Whole Blood 228 mg/dL (60-115)
[2024-12-20 20:12] LABS: Glucose, Whole Blood 220 mg/dL (60-115)
[2024-12-21 03:30] VITALS: BP 123/57; PULSE 65; RESP 18; TEMP 36.6; O2SAT 93
[2024-12-21 06:06] LABS: MANUAL DIFF FLAG NO
[2024-12-21] MEDS: Omeprazole 20 MG CAPSULE.DR PO (06:11)
[2024-12-21 06:14] LABS: Basophils Percent Auto 0.6 % (0-2); Eosinophils Absolute Auto 0.2 X10*3/uL (0.0-0.4); Eosinophils Percent Auto 3.8 % (0-4); Hematocrit 36.3 % (42.0-52.0); Hemoglobin 13.1 g/dl (14.0-18.0); Imm Gran Abs Auto 0.02 X10*3/uL (0.00-0.03); Imm Gran Pct Auto 0.4 % (0.0-0.4); Lymphocytes Absolute Auto 1.9 X10*3/uL (1.2-4.9); Lymphocytes Percent Auto 39.8 % (20-40); Mean Corpuscular HGB Conc 36.1 g/dl (31.0-36.0); Mean Platelet Volume 10.4 fL (9.4-12.4); Monocytes Absolute Auto 0.4 X10*3/uL (0.1-1.2); Monocytes Percent Auto 7.5 % (2-11); Neutrophils Absolute Auto 2.3 x10*3/uL (2.0-8.3); Neutrophils Percent Auto 47.9 % (45-73); Platelet Count 167 X10*3/uL (160-400); Red Blood Count 4.22 X10*6/uL (4.60-5.80); Red Cell Distribution Width 13.4 % (11.0-16.0); White Blood Count 4.8 X10*3/uL (4.8-10.8)
[2024-12-21 06:35] LABS: Anion Gap 13 (12-20); Blood Urea Nitrogen 5 mg/dL (9-16); Calcium 8.5 mg/dL (8.4-10.2); Carbon Dioxide 25 mmol/L (22-29); Chloride 106 mmol/L (96-108); Creatinine Clr Calc Pharmacy 194.8; Estimated Glomerular Filt Rate > 60; Glucose Random 155 mg/dL (60-115); Potassium 3.5 mmol/L (3.3-5.1); Sodium 140 mmol/L (135-145)
[2024-12-21 07:24] VITALS: BP 117/67; PULSE 75; RESP 14; TEMP 36.4; O2SAT 98
[2024-12-21 07:30] LABS: Glucose, Whole Blood 164 mg/dL (60-115)
[2024-12-21] MEDS: Thiamine HCL 100 MG TABLET PO (07:51)
[2024-12-21] MEDS: Metoprolol Succinate ER 50 MG TAB.ER.24H PO (07:51)
[2024-12-21] MEDS: Multivitamin TABLET 1 TAB PO (07:51)
[2024-12-21] MEDS: Escitalopram Oxalate 20 MG TABLET PO (07:52)
[2024-12-21] MEDS: Naltrexone HCl 50 MG TABLET 25 MG PO (07:52)
[2024-12-21] MEDS: Magnesium Oxide 400 MG TABLET PO (07:52)
[2024-12-21] MEDS: Insulin Lispro 100 UNIT/ML 3 ML VIAL SUBCUT ×2 (07:53→11:56)
[2024-12-21] MEDS: PHENobarbitaL 30 MG TABLET 60 MG PO (08:06)
[2024-12-21 11:12] LABS: Glucose, Whole Blood 243 mg/dL (60-115)
--- NOTE | 2024-12-21 11:23 | PM.DS ---
DS: Providers Provider Date of Service: 12/21/24 Date of admission: 12/19/24 07:19 Date of discharge: 12/21/24 Primary care physician: None Physician Consults: 12/19/24 13:50 Addiction Medicine Provider Routine Consulting Provider: Addiction Covering Reason for consultation: ETOH use. Seeking support. DS: Diagnosis Discharge Diagnosis (1) Depression: Status: Resolved (2) Alcohol withdrawal syndrome: Status: Resolved (3) Alcohol abuse: Status: Acute (4) Acute hypokalemia: Status: Acute (5) Hypomagnesemia: Status: Acute (6) Transaminitis: Status: Acute DS: Summary Hospital Course Hospital Course: Admission note HPI In his is a 49-year-old male with a past medical history of alcohol abuse and dependence with prior alcohol withdrawal seizures and DTs, DM, HTN, GERD who presents to the emergency room with complaints of epigastric and mid abdominal pain with associated nausea and vomiting of several days duration. The patient endorses drinking 3 pt of vodka daily for the past 1 month. Prior to this, the patient reports a 3 year period of sobriety. Patient was in the emergency room on 12/15 at which point he was discharged on Librium to manage his alcohol withdrawal. He now returns with worsening symptoms. In the emergency room the patient was noted to have increasing CIWA above 10, he was initiated on Noemy tall. Blood work showed evidence of alcoholic liver disease with a bilirubin over 3 and AST and ALT in the 200s/100s. CT scan of the abdomen and pelvis was negative for acute pancreatitis. Showed alcoholic liver disease. Chemistry showed acidosis with a bicarb of 16. He was treated with 3 L of fluid. He will now be admitted for further workup and treatment. Hospital course Alcohol use disorder with Acute alcohol withdrawal CIWA trending down on phenobarb, give PRN if needed addiction medicine consult Cessation has been encouraged Alcoholic gastritis IV Pepcic IVF clear if he can tolerate, advance slowly possible acute alcohol hepatitis Bili 4.6 AST, ALT trending down [place] score 3.5 consider GI consult if worsening Metabolic acidosis, acute likely due to poor oral intake, improved Discharge plan Continue home medicaitons Start Naltrexone as prescribed Start Thiamine supplement Follow with recovery team as outpatient Time Attestation Discharge Coordination Time (in mins): 32 Quality: Safe Use of Opioids Does Pt have an Active Cancer Diagnosis on the Problem List?: No Quality: Stroke Does the patient have a stroke diagnosis?: No Physical Exam Vital Signs: Vital Signs: Last Vital Signs Temp 97.5 F 12/21/24 07:24 Pulse 75 12/21/24 07:24 Resp 14 12/21/24 07:24 BP 117/67 12/21/24 07:24 Pulse Ox 98 12/21/24 07:24 O2 Del Method Room Air 12/21/24 07:24 BMI result Body Mass Index 33.6 Const: Other: Constitutional : interactive, not in distress Cardiovascular : no JVP, no lower extremity edema Respiratory : bilateral chest movement, not in resp distress Gastrointestinal: soft, lax, Non tender Skin : Warm, Dry Neurological : Alert & oriented , No focal deficit DS: Data Data Completed and Pending Labs on day of discharge: Laboratory Results - last 24 hr 12/20/24 12/20/24 12/21/24 16:23 19:47 05:35 WBC 4.8 RBC 4.22 L Hgb 13.1 L Hct 36.3 L MCV 86.0 MCH 31.0 MCHC 36.1 H RDW 13.4 Plt Count 167 MPV 10.4 Immature Gran % (Auto) 0.4 Neut % (Auto) 47.9 Lymph % (Auto) 39.8 [place] % (Auto) 7.5 Eos % (Auto) 3.8 Baso % (Auto) 0.6 Lymph # (Auto) 1.9 [place] # (Auto) 0.4 Eos # (Auto) 0.2 Baso # (Auto) 0.0 Abs Immat Gran (auto) 0.02 Absolute Neuts (auto) 2.3 Absolute Nucleated RBC 0.000 Nucleated RBC % (auto) 0.0 Sodium 140 Potassium 3.5 Chloride 106 Carbon Dioxide 25 Anion Gap 13 BUN 5 L Creatinine 0.66 Estim Creat Clear Calc 194.8 Estimated GFR > 60 POC Glucose 228 H 220 H Random Glucose 155 H Calcium 8.5 D 12/21/24 12/21/24 07:26 11:08 WBC RBC Hgb Hct MCV MCH MCHC RDW Plt Count MPV Immature Gran % (Auto) Neut % (Auto) Lymph % (Auto) [place] % (Auto) Eos % (Auto) Baso % (Auto) Lymph # (Auto) [place] # (Auto) Eos # (Auto) Baso # (Auto) Abs Immat Gran (auto) Absolute Neuts (auto) Absolute Nucleated RBC Nucleated RBC % (auto) Sodium Potassium Chloride Carbon Dioxide Anion Gap BUN Creatinine Estim Creat Clear Calc Estimated GFR POC Glucose 164 H 243 H Random Glucose Calcium Imaging Chest x-ray: Radiologist's impression: Impression: 1. Study limited by lack of intravenous contrast. 2. Hepatomegaly with diffuse fatty infiltration of the liver. 3. Fluid-filled small bowel with liquid stool within portions of the colon. This can be seen with a infectious or inflammatory enterocolitis. No findings of obstruction. This document has been electronically signed by: Jem Benitez MD on 12/19/2024 06:17:25 Discharge Plan Discharge Anticipated Discharge Date/Time: 12/21/24 11:12 Patient Disposition: Home, Self-Care Discharge Diagnosis: Alcohol withdrawal Referrals: [facility] [[email or web address] [Provider Group] - 01/01/25 4:00 pm (Please attend your appointment with the [facility] on Wednesday January 01, 2025 @ 4PM. ) Physician,None [Primary Care Provider] - 1 Week Discharge Medications: New naltrexone 50 mg tablet 50 mg PO DAILY Qty: 30 0RF thiamine mononitrate (vit B1) 100 mg Tablet 100 mg PO DAILY Qty: 90 0RF Continued loratadine 10 mg Tablet 10 mg PO DAILY omeprazole magnesium [Prilosec OTC] 20 mg Tablet,Delayed Release (Dr/Ec) 20 mg PO DAILY@0630 fluticasone propion-salmeterol 250-50 mcg/dose blister with device 1 ea inhalation BID atorvastatin 20 mg tablet 20 mg PO DAILY lisinopril 20 mg tablet 20 mg PO DAILY metoprolol succinate 100 mg tablet extended release 24 hr 100 mg PO DAILY albuterol sulfate 90 mcg/actuation HFA aerosol inhaler 2 inh inhalation Q6H PRN (Reason: Shortness Of Breath Or Wheezing) escitalopram oxalate 20 mg tablet 20 mg PO DAILY insulin glargine [Basaglar KwikPen U-100 Insulin] 100 unit/mL (3 mL) insulin pen 35 unit subcut DAILY Discharge Orders: Discharge Order (Routine); Ordered 12/21/24 Ordered By: Sarah Jacobs Diet: Advance to usual diet Activity on Discharge: As tolerated Stand Alone Forms: Patient Portal Discharge page Print Language: Cypriot Care Plan Goals: Continue home medicaitons Start Naltrexone as prescribed Start Thiamine supplement Follow with recovery team as outpatient Health Concerns: Alcohol withdrawal Plan of Treatment: Naltrexone Outpatient follow up Assessment: as above Patient Instructions: Thiamine (By mouth) ([facility] Vitamin B1, Nature's..., Naltrexone (By mouth) ([facility]) Discharge Date/Time: 12/21/24 13:00
[2024-12-21 12:00] VITALS: BP 123/77; PULSE 64; RESP 14; TEMP 36.1; O2SAT 96
--- NOTE | 2024-12-21 12:59 | MHC.CM.PN ---
PT TO DC HOME TODAY WITH NO SERVICES VIA SELF ARRANGED TRANSPORT
== END 2024-12-21 13:00 | disposition home or self-care (01) | DRG 392 ==
LOC: HO.ED 06:48 → HO.EDOVER 07:20 → HO.S3 12:35
PROVIDERS: Family Medicine; Admitting Provider Student in an Organized Health Care Education/Training Program; Emergency Provider Internal Medicine; Visit Provider Student in an Organized Health Care Education/Training Program
DX: K29.20 Alcoholic gastritis without bleeding (principal); F10.239 Alcohol dependence with withdrawal, unspecified; E87.20 Acidosis, unspecified; K70.10 Alcoholic hepatitis without ascites; E78.5 Hyperlipidemia, unspecified; I10 Essential (primary) hypertension; F39 Unspecified mood [affective] disorder; Y90.8 Blood alcohol level of 240 mg/100 ml or more; Z79.4 Long term (current) use of insulin; Z79.899 Other long term (current) drug therapy
CPT/HCPCS: 36415; 74176; 80048; 80053; 80307; 82140; 82607; 82746; 82947; 83690; 83735; 85025; 85027; 85610; 99285; J1308; J2250; J2405; J2560; J7120; S9485

== ENCOUNTER → 2024-12-19 05:21 | Outpatient (BNV) | payer OTHER, SELFPAY | PROVIDERS: Emergency Provider Internal Medicine; Visit Provider Radiology Diagnostic Radiology | DX: R16.0 Hepatomegaly, not elsewhere classified (principal) | CPT/HCPCS: 74176 ==

== ENCOUNTER → 2024-12-19 07:19 | Outpatient (BNV) | payer OTHER, SELFPAY | PROVIDERS: Admitting Provider Student in an Organized Health Care Education/Training Program; Emergency Provider Internal Medicine; Visit Provider Family Medicine | DX: F32.A Depression, unspecified (principal); F10.939 Alcohol use, unspecified with withdrawal, unspecified | CPT/HCPCS: 99233 ==

== ENCOUNTER 2025-03-31 15:24 | Emergency (ER) | payer OTHER, SELFPAY ==
[2025-03-31 15:30] VITALS: BP 113/71; BP 122/68; PULSE 80; PULSE 83; RESP 16; TEMP 36.8; O2SAT 97; BMI 33.4
[2025-03-31 15:38] VITALS: BP 122/68; PULSE 83; RESP 16; TEMP 36.8; O2SAT 97
[2025-03-31 16:06] LABS: MANUAL DIFF FLAG NO
[2025-03-31 16:08] LABS: Appearance Urine Clear; Glucose Urine UA >=1000 mg/dL (Negative); PH 5.5 (5.0-9.0); Specific Gravity - Urine >= 1.030 (1.005-1.025); UMIC TRIGGER UACC YES
[2025-03-31 16:09] LABS: Hematocrit 43.9 % (42.0-52.0); Hemoglobin 15.5 g/dl (14.0-18.0); Imm Gran Abs Auto 0.02 X10*3/uL (0.00-0.03); Imm Gran Pct Auto 0.3 % (0.0-0.4); Lymphocytes Absolute Auto 2.7 X10*3/uL (1.2-4.9); Mean Corpuscular HGB Conc 35.3 g/dl (31.0-36.0); Mean Corpuscular Hemoglobin 30.3 pg (27.0-33.0); Mean Corpuscular Volume 85.9 fL (80.0-98.0); NRBC Abs Auto 0.000 X10*3/uL (0.0-0.012); NRBC Pct Auto 0.0 /100WBC (0.0-0.2); Platelet Count 295 X10*3/uL (160-400); Red Blood Count 5.11 X10*6/uL (4.60-5.80); White Blood Count 7.9 X10*3/uL (4.8-10.8)
--- NOTE | 2025-03-31 16:16 | ED.ABDPAIN ---
HPI - Abdominal Pain General Chief Complaint: Abdominal Pain Stated Complaint: ETOH, abd pain Time Seen by Provider: 03/31/25 16:06 Source: patient and EMS Mode of arrival: EMS Limitations: no limitations History of Present Illness ED Provider: Dr. Kristen Mondragon HPI narrative: Patient comes to the emergency room complaining of not feeling well after drinking alcohol. Patient states that for the entire week he has been drinking 12 nebs every day. Today he only had 6. Initially when patient came into the hospital, he initially reported that he came for abdominal pain, then he reported he is starting to feel that he is withdrawing from alcohol. When I talked to the patient, patient states that he has chronic abdominal pain that has been present for years, unchanged, states that he has history of pancreatitis and gastritis for which she takes medications daily. Patient denies any blood in the vomit or in the stool. Patient states that he is not nauseous at this time, just feeling unwell, at baseline abdominal pain. Patient states that he only wants a bit of fluid and then states that he likely would like to be discharged. Patient states that he is not interested in detox since he has tried and failed multiple times. Denies SI or HI Related Data Home Medications ?Medication ?Instructions ?Recorded ?Confirmed albuterol sulfate 90 mcg/actuation 2 inh inhalation Q6H PRN Shortness 11/04/24 12/19/24 aerosol inhaler Of Breath Or Wheezing atorvastatin 20 mg tablet 20 mg PO DAILY 11/04/24 12/19/24 escitalopram oxalate 20 mg tablet 20 mg PO DAILY 11/04/24 12/19/24 fluticasone 250 mcg-salmeterol 50 1 ea inhalation BID 11/04/24 12/19/24 mcg/dose blistr powdr for inhalation insulin glargine 100 unit/mL (3 35 unit subcut DAILY 11/04/24 12/19/24 mL) subcutaneous pen (Basaglar KwikPen U-100 Insulin) lisinopril 20 mg tablet 20 mg PO DAILY 11/04/24 12/19/24 metoprolol succinate 100 mg 100 mg PO DAILY 11/04/24 12/19/24 tablet,extended release 24 hr loratadine 10 mg tablet 10 mg PO DAILY 12/19/24 12/19/24 omeprazole magnesium 20 mg 20 mg PO DAILY@0630 12/19/24 12/19/24 tablet,delayed release (Prilosec OTC) Previous Rx's ?Medication ?Instructions ?Recorded naltrexone 50 mg tablet 50 mg PO DAILY #30 tabs 12/20/24 thiamine mononitrate (vit B1) 100 100 mg PO DAILY #90 tabs 12/21/24 mg tablet Allergies Allergy/AdvReac Type Severity Reaction Status Date / Time Iodinated Contrast Media AdvReac Rash Verified 03/31/25 15:32 (Contrast Dye) Review of Systems Review of Systems Constitutional : No Weight loss, No Fever, No Chills, No Night Sweats, No Fatigue, No Malaise ENT/Mouth : No Hearing loss, No Ear Pain, No Nasal Congestion, No Sinus Pain, No Hoarseness, No sore throat, No Rhinorrhea, No Swallowing Difficulty Eyes: No Eye Pain, No Swelling, No Redness, No Foreign Body, No Discharge, No Vision Changes Cardiovascular : No Chest Pain, No SOB, No Dyspnea on Exertion, No Orthopnea, No Edema, No Palpitations Respiratory : No Cough, No Sputum, No Wheezing, No Smoke Exposure, No Dyspnea Gastrointestinal : Resolved nausea and vomiting, no diarrhea, denies diarrhea or blood in the stool, complaining of chronic burning abdominal pain. Genitourinary : no irregular bleeding, No Dysuria, No Urinary Frequency, No Hematuria, No Urinary Incontinence, No Urgency, No Flank Pain, No Urinary Flow Changes, No Hesitancy Musculoskeletal : No joint pain, No Myalgias, No Joint Swelling Skin : No Skin Lesions, No rash Neuro : No Weakness, No Numbness, No Paresthesias, No Loss of Consciousness, No Dizziness, No Headache Psych : No Anxiety/Panic, No Depression, No SI/HI/AH/VH, No Social Issues, Heme/Lymph: No Bruising, No Bleeding,No Lymphadenopathy Endocrine : No Polyuria, No Polydipsia, No Temperature Intolerance [facility] Past Medical History Medical History Transaminitis Pancreatitis Alcohol dependence Alcohol abuse Social History Social History Household Members: Other Household Members Other:: Roommate. Housing: House Do you presently have visiting nurse or other home services: No Alcohol intake: current Alcohol intake frequency: 3 or more drinks per day Alcohol type: hard liquor Comment: [facility] Patient Tobacco Use Status: Never used Tobacco Use of substances other than those prescribed or required for medical reasons: No Advance Directives: No Advance Directives Information Provided: Yes Do you have a plan to hurt others: No Plan service: No Physical Exam ED Exam Exam: Appearance: Alert. Oriented X3. Seems uncomfortable Eyes: Pupils equal, round and reactive to light. ENT: Pharynx normal. Neck: Normal inspection. Neck supple. No lymph nodes noted. No crepitus CVS: Normal heart rate and rhythm. Pulses normal. Normal S1 and S2 Respiratory: No respiratory distress. Breath sounds normal. No Wheezing. No rales Abdomen: Soft , no significant tenderness to palpation in any quadrant at this time, no rebound or guarding Skin: Skin warm and dry. Normal skin color. Normal skin turgor. Extremities: No lower extremity edema. No Lacerations. No Rash Neuro: Oriented X 3. No motor deficit. No sensory deficit. Moving all extremities. No slurred speech. CN 2 through 12 grossly intact Psych: calm, cooperative, normal affect Vital Signs: Vital Signs - 24 hr 03/31/25 15:30 03/31/25 15:38 03/31/25 18:31 Temperature 98.2 F 98.2 F 98.2 F Pulse Rate 83 83 83 Respiratory Rate 16 16 16 Blood Pressure 122/68 122/68 122/68 Pulse Oximetry 97 97 97 Oxygen Delivery Method Room Air Room Air Room Air BMI result Body Mass Index 33.4 Course Course Course Narrative: Patient reporting chronic abdominal pain, no new symptoms other than just not feeling well. Earlier today patient arrived complaining of withdrawal like symptoms. When I spoke to the patient patient denied those symptoms. Patient requesting IV fluids and then discharged, states that he is not interested in detox, denies SI or HI All of patient's labs pending, depending on labs we may need imaging. Abdominal exam fairly benign Patient receiving IV fluids, IV diazepam, famotidine, p.o. viscous lidocaine and Maalox for symptomatic treatment. At 16:25, patient walked out of his room, pulled out his IV, stated that he wanted to leave, patient was but it by his nurse walking around the ED. patient became very anxious, started saying that he does not know where he is. Patient stated that he was having a panic attack, unsure if he was withdrawing from alcohol? Patient was redirected bike to his room and was given 5 mg of IM diazepam. Medical Decision Making Medical Decision Making [facility] Narrative: My interpretation of labs: No significant abnormality in patient's hematology, chemistry shows a glucose of 345, chronically and at baseline in elevated LFTs, normal lipase, urine negative for UTI, toxicology positive for EtOH. At this time, 18:40, patient is completely awake, alert and oriented x3, no acute distress, states that he is no longer anxious. The patient is clinically sober. Patient has been ambulating around his room with normal steady gait. I offered and recommended admission/observation. Patient calm and cooperative. 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 Patient declined detox. At this time, patient's vitals are stable, blood pressure 122/68, heart rate 83, temperature 98.7 degrees, oxygen saturation 97% on room air. No signs or symptoms of alcohol withdrawal Patient denies any ongoing abdominal pain chest pain or shortness of breath, no nausea or vomiting. Patient requesting to be discharged Differential Diagnosis Differential Diagnoses: The differential diagnosis associated with the presentation includes (Alcoholic gastritis, pancreatitis, peptic ulcer disease, alcohol withdrawal) Admission/Observation Consideration of admission/observation: Escalation of care including admission/observation considered (Given patient's history and presentation, observation has been considered. However, on arrival patient patient stated that he is not willing to stay) Lab Data [facility] Lab Attestation statement: I reviewed the patient's lab results. 03/31/25 16:02 03/31/25 16:02 Labs: Lab Results 03/31/25 Range/Units 16:02 WBC 7.9 (4.8-10.8) X10*3/uL RBC 5.11 D (4.60-5.80) X10*6/uL Hgb 15.5 (14.0-18.0) g/dl Hct 43.9 D (42.0-52.0) % MCV 85.9 (80.0-98.0) fL MCH 30.3 (27.0-33.0) pg MCHC 35.3 (31.0-36.0) g/dl RDW 12.9 (11.0-16.0) % Plt Count 295 D (160-400) X10*3/uL MPV 9.4 (9.4-12.4) fL Immature Gran % (Auto) 0.3 (0.0-0.4) % Neut % (Auto) 53.9 (45-73) % Lymph % (Auto) 34.2 (20-40) % Citrus % (Auto) 8.8 (2-11) % Eos % (Auto) 1.9 (0-4) % Baso % (Auto) 0.9 (0-2) % Lymph # (Auto) 2.7 (1.2-4.9) X10*3/uL Citrus # (Auto) 0.7 (0.1-1.2) X10*3/uL Eos # (Auto) 0.2 (0.0-0.4) X10*3/uL Baso # (Auto) 0.1 (0.0-0.2) X10*3/uL Abs Immat Gran (auto) 0.02 (0.00-0.03) X10*3/uL Absolute Neuts (auto) 4.2 (2.0-8.3) x10*3/uL Absolute Nucleated RBC 0.000 (0.0-0.012) X10*3/uL Nucleated RBC % (auto) 0.0 (0.0-0.2) /100WBC Sodium 137 (135-145) mmol/L Potassium 4.2 (3.3-5.1) mmol/L Chloride 102 (96-108) mmol/L Carbon Dioxide 20 L (22-29) mmol/L Anion Gap 19 (12-20) BUN 15 (9-16) mg/dL Creatinine 0.85 (0.5-1.4) mg/dL Estim Creat Clear Calc 146.6 Estimated GFR > 60 Random Glucose 345 H (60-115) mg/dL Calcium 8.6 (8.4-10.2) mg/dL Magnesium 1.8 (1.6-2.6) mg/dL Total Bilirubin 2.6 H (0.0-1.0) mg/dL AST 74 H (5-37) U/L ALT 66 H (0-40) U/L Alkaline Phosphatase 99 (39-117) U/L Total Protein 6.8 (6.5-8.0) g/dL Albumin 4.0 (3.5-5.0) g/dL Lipase 20 (8-78) U/L Urine Color Yellow Urine Appearance Clear Urine pH 5.5 (5.0-9.0) Ur Specific [place] >= 1.030 H (1.005-1.025) Urine Protein 30 (1+) H (Neg-Trace) mg/dL Urine Glucose (UA) >=1000 H (Negative) mg/dL Urine Ketones 15 (Negative) mg/dL Urine Blood Negative (Negative) Urine Nitrite Negative (Negative) Ur Leukocyte Esterase Negative (Negative) Urine RBC 0-2 (0-2) /HPF Urine WBC 0-5 (0-5) /HPF Ur Squamous Epith Cells 0-2 (0-2) /HPF Urine Bacteria None Seen (None Seen) Hyaline Casts 6-10 (0-2) /LPF Ethyl Alcohol 294 mg/dL Independent Interpretation I performed an independent interpretation of an: EKG External Record Review External record reviewed: Inpatient record Patient was admitted a proximally 3 months ago for alcohol withdrawal syndrome. Chronic Conditions Patient?s care impacted by: Other (Alcohol dependence) Medications Administered Discontinued Medications Generic Name Dose Route Start Last Admin Trade Name Freq PRN Reason Stop Dose Admin Al Hydroxide/Mg Hydroxide 30 ml 03/31/25 16:14 03/31/25 16:58 Magnesium Hydrox/Alum Hydrox 30 Ml Oral.Susp PO 03/31/25 16:15 30 ml ONCE ONE Administration Diazepam 2.5 mg 03/31/25 16:14 03/31/25 17:02 Diazepam 10 Mg/2 Ml Cartridge IVPUSH 03/31/25 16:15 2.5 mg STAT STA Administration Diazepam 5 mg 03/31/25 16:27 03/31/25 16:36 Diazepam 10 Mg/2 Ml Cartridge IM 03/31/25 16:28 5 mg STAT STA Administration Famotidine 20 mg 03/31/25 16:14 03/31/25 16:58 Famotidine/Pf 20 Mg/2 Ml Vial IVPUSH 03/31/25 16:15 20 mg ONCE ONE Administration Sodium Chloride 1,000 mls @ 999 mls/hr 03/31/25 16:14 03/31/25 18:31 Ns IVCONT 03/31/25 17:14 Infused .Q1H1M ONE Infusion Lidocaine HCl 15 ml 03/31/25 16:14 03/31/25 16:58 Lidocaine Hcl Viscous 2 % 15 Ml Solution MUCOUS MEM 03/31/25 16:15 15 ml ONCE ONE Administration Critical Care Time Critical Care Time Critical Care Time: Yes Total Critical Care Time: 50 Attestation: I have personally provided critical care time. Time includes review of lab data, radiology results, discussion with consultants, and monitoring for potential decompensation. Intervention performed as documented. Discharge Plan Discharge Clinical Impression: Alcohol abuse, Gastritis Patient Disposition: Home, Self-Care Instructions: Abuse of Alcohol (ED), Gastritis (ED) Additional Instructions: Please follow-up with your primary care physician tomorrow. If you have any worsening or new symptoms, please return to the emergency room or call 911 Prescriptions: No Action loratadine 10 mg Tablet 10 mg PO DAILY omeprazole magnesium [Prilosec OTC] 20 mg Tablet,Delayed Release (Dr/Ec) 20 mg PO DAILY@0630 naltrexone 50 mg tablet 50 mg PO DAILY Qty: 30 0RF thiamine mononitrate (vit B1) 100 mg Tablet 100 mg PO DAILY Qty: 90 0RF fluticasone propion-salmeterol 250-50 mcg/dose blister with device 1 ea inhalation BID atorvastatin 20 mg tablet 20 mg PO DAILY lisinopril 20 mg tablet 20 mg PO DAILY metoprolol succinate 100 mg tablet extended release 24 hr 100 mg PO DAILY albuterol sulfate 90 mcg/actuation HFA aerosol inhaler 2 inh inhalation Q6H PRN (Reason: Shortness Of Breath Or Wheezing) escitalopram oxalate 20 mg tablet 20 mg PO DAILY insulin glargine [Edmundoaglai Gonzalez U-100 Insulin] 100 unit/mL (3 mL) insulin pen 35 unit subcut DAILY Print Language: Somali
[2025-03-31 16:28] LABS: Alanine Aminotransferase 66 U/L (0-40); Albumin Level 4.0 g/dL (3.5-5.0); Alkaline Phosphatase 99 U/L (39-117); Anion Gap 19 (12-20); Aspartate Amino Transferase 74 U/L (5-37); Blood Urea Nitrogen 15 mg/dL (9-16); Calcium 8.6 mg/dL (8.4-10.2); Carbon Dioxide 20 mmol/L (22-29); Chloride 102 mmol/L (96-108); Creatinine Clr Calc Pharmacy 146.6; Estimated Glomerular Filt Rate > 60; Lipase 20 U/L (8-78); Magnesium 1.8 mg/dL (1.6-2.6); Potassium 4.2 mmol/L (3.3-5.1); Sodium 137 mmol/L (135-145); Total Protein 6.8 g/dL (6.5-8.0)
[2025-03-31] MEDS: diazePAM 10 MG/2 ML CARTRIDGE 5 MG IM (16:36)
[2025-03-31] MEDS: Magnesium Hydrox/Alum Hydrox 30 ML ORAL.SUSP PO (16:58)
[2025-03-31] MEDS: Lidocaine HCl Viscous 2 % 15 ML SOLUTION MUCOUS MEM (16:58)
[2025-03-31] MEDS: diazePAM 10 MG/2 ML CARTRIDGE 2.5 MG IVPUSH (17:02)
--- NOTE | 2025-03-31 17:04 | PC.NURSE ---
FRANSICO from home. Patient presents with ABD in LLQ rated 8/10. PMH ETOH usually drinks around 12 nips only had 6 nips today. Patient reports trying to cut back on ETOH use. States he feels like hes beginning to have withdraws. unsure hx of seizures, precautions in place Patient attempted to leave ED Patient removed IV access Patient was redirected back to ED4 IV 20G in right hand placed Valium given per provider order
--- OUTSIDE RECORDS SUMMARY | 2025-03-31 18:18 | XMS_ITS | Encounter Summary ---
Demographics
[2025-03-31 18:31] VITALS: BP 122/68; PULSE 83; RESP 16; TEMP 36.8; O2SAT 97
--- NOTE | 2025-03-31 19:00 | PC.NURSE ---
Patient insisited on leaving ED Patient removed IV again. Patient A&O x 3 notified provider of patient disposition Patient discharged from ED
[2025-03-31 19:01] VITALS: BP 122/68; PULSE 83; RESP 16; TEMP 36.8; O2SAT 97
== END 2025-03-31 19:01 | disposition home or self-care (01) ==
PROVIDERS: Physician Assistant Medical; Emergency Provider Emergency Medicine
DX: F10.10 Alcohol abuse, uncomplicated (principal); K29.70 Gastritis, unspecified, without bleeding; R10.9 Unspecified abdominal pain; Z79.899 Other long term (current) drug therapy
CPT/HCPCS: 36415; 80053; 80307; 81001; 83690; 83735; 85025; 96361; 96372; 96374; 96375; 99284; J1308; J3360

== ENCOUNTER 2025-04-06 02:38 | Emergency (ER) | payer OTHER, SELFPAY ==
--- OUTSIDE RECORDS SUMMARY | 2011-02-14 06:30 | XMS_ITS | Continuity of Care Document ---
Author Organization [facility] Address [address] [place] [address] Phone Care Team Providers Care Yeast Tender Name Role Phone Unavailable Unavailable Unavailable Advance Directives Directive Yes / No Effective Date File Name No Information Encounters Encounter Description Practice Location Reason(s) For Visit Diagnoses Date Provider Providers Copied on Encounter [facility], [facility] [place], [id number], [place] tel:[phone] *IM - Cardiology No Information No Information Family History Family Member Type Diagnosis Age At Onset No Information Payers Payer name Insurance type Covered democrat ID Authoriza tion(s) No Information Social History Type Description Quantity Date Captured Comments Sex Male Smoking Status No Information Chief Complaint And Reason For Visit No Information Reason For Referral Reason For Referral No Information History Of Present Illness Encounter Date Complaint History Of Prese nt Illness No Information Functional Status Date Functional Assessmen t No Information Instructions Date Instruction Additional Infor mation No Information Assessments Type Assessment Date No Information Patient Care Teams Name Effective Dates (start - stop) Status Members No Information
[2025-04-06 02:44] VITALS: BP 120/84; PULSE 74; O2SAT 99
--- NOTE | 2025-04-06 03:05 | MHC.EDTECH ---
Patient BIBA,changed into crisis attire,security present for changeover, pt is calm and cooperative, vitals taken, belongings list completed, [facility]
[2025-04-06 03:07] VITALS: BMI 30.4
--- OUTSIDE RECORDS SUMMARY | 2025-04-06 03:11 | XMS_ITS | Clinical Summary ---
Author Organization [facility] Address [address] [place] [address] Care Team Providers Care Deal Architect Name Role Phone Artie Grant MD Primary Care Provider [phone] Artie Grant MD Unavailable [phone] Allergies Active Allergy Reactions Criticality Noted [...] Vitamin (MULTIVITAMIN ADULT OR) Take by mouth. Activ e Vitamin D, Cholecalciferol, (VITAMIN D-3) 25 MCG (1000 UT) tablet Take 1,000 Units by mouth 1 (one) time each day. Active Insulin Glargine (Lantus) 100 UNIT/ML injection Inject 10 Units under the skin every night. Active ALPRAZolam (Xanax) 0.25 MG tabletIndication s:Anxiety Take one tablet (0.25 mg total) by mouth at night if needed for anxiety or sleep. 30 tablet 5 Active Albuterol (PROVENTIL HFA;VENTOLIN HFA) 90 mcg/ACT inhalerIndicatio ns:Moderate asthma, unspecified whether complicated, unspecified whether persistent (HHS) Inhale two puffs every 4 (four) hours if needed for wheezing or shortness of breath Dispense Generic or Brand Albuterol per preferred payor coverage.. 1 each 5 01/16/20 26 Active Escitalopram (LEXAPRO) 20 MG tabletIndication s:Recurrent major depressive disorder, in full remission Take one tablet (20 mg total) by mouth 1 (one) time each day. 90 tablet 3 5 01/16/20 26 Active Empagliflozin (Jardiance) 10 MG tabletIndication s:Dyslipidemia associated with type 2 diabetes mellitus (HCC) Take one tablet (10 mg total) by mouth 1 (one) time each day in the morning. 90 tablet 3 5 01/16/20 26 Active Lancets Misc. LancetIndication s:Type 2 diabetes mellitus without complication, unspecified whether assisted insulin use 1 each by Other route - Use BID. Pharmacist: Please Dispense Lancet Brand as covered by the Patient Insurance.. 100 each 2 5 Active Insulin Pen Needle (PEN NEEDLES 31GX5/16 ) 31G X 8 MM Pen NeedleIndication s:Dyslipidemia associated with type 2 diabetes mellitus (HCC) 1 Syringe - Use with insulin to inject once daily as directed. 100 each 3 5 02/02/20 26 Active Fluticasone-Salm eterol (ADVAIR DISKUS) 250-50 MCG/ACT diskus inhalerIndicatio ns:Moderate asthma, unspecified whether complicated, unspecified whether persistent (HHS) INHALE 1 PUFF BY MOUTH TWICE DAILY 60 each 5 5 Active Insulin Glargine (Basaglar KwikPen) 100 UNIT/ML Pen-Injector INJECT 35 UNITS UNDER THE SKIN EVERY NIGHT PATIENT NEEDS APPT FOR ADDITIONAL REFILL.. 1 each 1 5 Active Metoprolol Succinate (TOPROL-XL) 100 MG 24 hr tablet TAKE 1 TABLET BY MOUTH EVERY DAY 90 tablet 2 5 Active Lisinopril (PRINIVIL,ZESTRI L) 20 MG tablet TAKE 1 TABLET (20 MG TOTAL) BY MOUTH ONE TIME EACH DAY 90 tablet 2 5 Active Atorvastatin Calcium (LIPITOR) 20 MG tablet TAKE 1 TABLET (20 MG TOTAL) BY MOUTH ONE TIME EACH DAY 90 tablet 2 5 Active Active Problems Problem Noted Date Diagnosed Date [...] A-fib 09/11/2023 Overview (09/11/2023): Not on anticoagulation. 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 [phone] Return for 6 month f/u DM. Health Maintenance Due Date Last Done Comments DTaP/Tdap/Td (1 - Tdap) 1995 Eye/Retina Exam 1995 Hep B (1 of 3 - 19+ 3-dose series) 1996 HA1C 01/08/2025 07/11/2024, 2024 COVID-19 Vaccine (1 - 2023-2 5 season) 2025 Influenza (#1) 2025 2024 GFR 07/11/2025 07/11/2024, 09/12/2023, 04/21/2022 LDL Cholesterol 07/11/2025 07/11/2024, 09/12/2023 Microalbumin 07/11/2025 07/11/2024, 09/13/2023 Pneumococcal (1 of 2 - PCV) 10/08/2025 Postponed from 1996 (Refused by patient) Colon Cancer Screening 10/14/2025 10/14/2022 Zoster (Shingrix) (1 of 2) 2027 Cologuard Dates Discontinued 10/04/2022 Hepatitis C Screening Completed 09/12/2023 Physical Discontinued 10/07/2024, 09/11/2023 HPV Vaccine (No Doses Required) Completed Hep A Aged Out No longer eligi [...] often more reliable than measurements at the doctor s office. You can also improve your [...] Procedure Name Priority Date/Time Associated Diagnosis Comments COMPREHENSIVE METABOLIC PANEL WITH GFR Routine 07/11/2024 7:28 AM EST Type 2 diabetes mellitus without complication, unspecified whether assisted insulin use ALBUMIN (MICROALBUMIN), RANDOM URINE, WITH CREATININE Routine 07/11/2024 7:28 AM EST Type 2 diabetes mellitus without complication, unspecified whether assisted insulin use HEMOGLOBIN A1C Routine 07/11/2024 7:28 AM EST Dyslipidemia associated with type 2 diabetes mellitus LIPID PANEL WITH REFLEX TO DIRECT LDL Routine 07/11/2024 7:28 AM EST Type 2 diabetes mellitus without complication, unspecified whether assisted insulin use HEPATITIS C AB WITH REFLEX TO RNA PCR, SERUM Routine 09/12/2023 2:52 PM EST Need for hepatitis C screening test from Last 3 Months or Most Recently Relevant to Health Maintenance Results * HEMOGLOBIN A1C (07/11/2024 7:28 AM EST) Hemoglobin A1C 6.1 4.3 - 6.1 %A1C [facility] Comment: 5.7-6.4 Increased Risk of Diabetes >6.4 Consistent with Diabetes The [place] [employer] recommends a goal of less than 7% for diabetic patients. 07/11/2024 7:28 AM EST 07/11/2024 1:27 PM EST Narrative [facility] - 07/11/2024 3:14 PM EST Testing performed at [facility], [address] [place] [address], , Carpentry Supervisor: Rebecca Moser MD CL#[id number] us Artie Grant MD LABORATORY Final Result Performing Organization Address [facility] de Phone Number [facility] [address] [place] [address], * (ABNORMAL) ALBUMIN (MICROALBUMIN), RANDOM URINE, WITH CREATININE (07/11/2024 7:28 AM EST) Albumin (Urine) 15 0 - 23 mg/L [facility] Creatinine (Urine) 275(H) 60 - 200 mg/dL [facility] Microalbumin/Cr eat Ratio (Urine) 5 0 - 30 [facility] 07/11/2024 7:28 AM EST 07/11/2024 1:27 PM EST Narrative [facility] - 07/11/2024 3:48 PM EST Testing performed at [facility], [address] [place] [address], , Carpentry Supervisor: Rebecca Moser MD CL#[id number] us Artie Grant MD LABORATORY Final Result Performing Organization Address [facility] Co de Phone Number [facility] [address] [place] [address], * (ABNORMAL) LIPID PANEL WITH REFLEX TO DIRECT LDL (07/11/2024 7:28 AM EST) Cholesterol 116 0 - 199 mg/dL [facility] Triglyceride 180(H) 0 - 150 mg/dL [facility] VLDL Cholesterol 36 5 - 40 mg/dL [facility] HDL Cholesterol 29(L) 40 - 80 mg/dL [facility] LDL Cholesterol 51 0 - 100 mg/dL [facility] Cholesterol Non-HDL 87 0 - 130 mg/dl [facility] CHOL/HDL Ratio 4.0 [facility] 07/11/2024 7:28 AM EST 07/11/2024 1:27 PM EST Narrative [facility] - 07/11/2024 2:03 PM EST Route to PCP? (if blank or no routes to encounter provider)->No FASTING: YES Testing performed at [facility], [address] [place] [address], , Carpentry Supervisor: Rebecca Moser MD CL#[id number] Artie Grant MD LABORATORY Final Result [facility] [address] [place] [address], * (ABNORMAL) COMPREHENSIVE METABOLIC PANEL WITH GFR (07/11/2024 7:28 AM EST) Glucose 129(H) 65 - 99 mg/dL [facility] Comment:Fasting Reference In terval Urea Nitrogen Blood (BUN) 14 6 - 20 mg/dL [facility] Creatinine 0.9 0.5 - 1.2 mg/dL [facility] GFR 106 >=60 [facility] BUN/Creatinine Ratio 16 6 - 25 [facility] Sodium 141 133 - 145 mmol/L [facility] Potassium 4.1 3.3 - 5.3 mmol/L [facility] Chloride 102 96 - 108 mmol/L [facility] Bicarbonate 28 22 - 32 mmol/L [facility] Anion gap 3 11 [facility] Calcium 9.1 8.6 - 10.5 mg/dL [facility] Protein Total (Serum) 6.7 6.2 - 8.2 g/dL [facility] Albumin 4.2 3.5 - 5.2 g/dl [facility] Alkaline phosphatase 85 40 - 130 U/L [facility] AST (SGOT) 22 4 - 40 U/L [facility] ALT (SGPT) 32 4 - 41 U/L [facility] Bilirubin Total 2.1(H) 0.1 - 1.0 mg/dL [facility] Globulin 2.5 1.4 - 4.8 g/dl [facility] Albumin/Globulin 2 1 - 3 [facility] Osmolality 274 253 - 285 mOsm/kg [facility] 07/11/2024 7:28 AM EST 07/11/2024 1:27 PM EST Narrative [facility] - 07/11/2024 2:04 PM EST FASTING: YES Testing performed at [facility], [address] [place] [address], , Carpentry Supervisor: Rebecca Moser MD CL#[id number] Artie Grant MD LABORATORY Final Result [facility] [address] [place] [address]. [place] [address], * HEPATITIS C AB WITH REFLEX TO RNA PCR, SERUM (09/12/2023 2:52 PM EST) Hepatitis C virus Ab NON-REACT MARY ANN NON-REACT MARY ANN [facility] Comment:Antibodies to HCV we re not detected. NOTE: This does not entirely exclude the possibility of exposure to HCV since antibody production may lag infection. If there is a high suspicion of HCV infection HCV RNA testing may be of diagnostic value. 09/12/2023 2:5 2 PM EST 09/12/2023 8:12 PM EST Narrative [facility] - 09/12/2023 9:55 PM EST Track Order?->No Release result to patient->Immediate Testing Performed at: [facility], [address] [place] [address], , Carpentry Supervisor: Rebecca Moser MD CL#[id number] Artie Grant MD LABORATORY Final Result [facility] [address] [place] [address], from Last 3 Months or Most Recently Relevant to Health Maintenance Insurance [employer] PPO CIGNA PPO Care Teams Deal Architect Relationship Specialty Start Date End Date Artie Grant MD [address] [place], [place] [phone] PCP - General 06/14/23 Artie Grant MD [address] [place], [place] [phone] PCP - Backup PCP Family Medicine 08/10/23
--- OUTSIDE RECORDS SUMMARY | 2025-04-06 03:11 | XMS_ITS | Encounter Summary ---
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
--- OUTSIDE RECORDS SUMMARY | 2025-04-06 03:11 | XMS_ITS | Encounter Summary ---
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 [address] [place] [phone] Artie Grant MD [address] [place] [phone] Return for 6 month f/u [...] on filedocumented in this encounter Care Teams Patient Account Specialist Relationship Specialty Start Date End Date Artie Grant MD [address] [place] [phone] PCP - General 06/14/23 Artie Grant MD [address] [place] [phone] PCP - Backup PCP Family Medicine 08/10/23 documented as of this encounter
--- OUTSIDE RECORDS SUMMARY | 2025-04-06 03:11 | XMS_ITS | Encounter Summary ---
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 Not on fi le documented as of this encounter Plan of Treatment Upcoming Encounters Date Type Department Care Team (Late st Contact Info) Description 04/09/2025 8:00 AM EDT Office Visit [address] [place] [phone] Artie Grant MD [address] [place] [phone] Return for 6 month f/u [...] on filedocumented in this encounter Care Teams Emergency Response Coordinator Relationship Specialty Start Date End Date Artie Grant MD [address] [place] [phone] PCP - General 06/14/23 Artie Grant MD [address] [place] [phone] PCP - Backup PCP Family Medicine 08/10/23 documented as of this encounter
--- OUTSIDE RECORDS SUMMARY | 2025-04-06 03:11 | XMS_ITS | Encounter Summary ---
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 Not on fi le documented as of this encounter Plan of Treatment Upcoming Encounters Date Type Department Care Team (Late Contact Info) Description 04/09/2025 8:00 AM EDT Office Visit [address] [place] [phone] Artie Grant MD [address] [place] [phone] Return for 6 month f/u [...] on filedocumented in this encounter Care Teams Supplier Quality Engineering Manager Relationship Specialty Start Date End Date Artie Grant MD [address] [place] [phone] PCP - General 06/14/23 Artie Grant MD [address] [place] [phone] PCP - Backup PCP Family Medicine 08/10/23 documented as of this encounter
--- OUTSIDE RECORDS SUMMARY | 2025-04-06 03:11 | XMS_ITS | Encounter Summary ---
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 documented [...] on filedocumented in this encounter Care Teams Family Consumer Science Teacher Relationship Specialty Start Date End Date Artie Grant MD [address] [place] [phone] PCP - General 06/14/23 Artie Grant MD [address] [place] [phone] PCP - Backup PCP Family Medicine 08/10/23 documented as of this encounter
--- OUTSIDE RECORDS SUMMARY | 2025-04-06 03:11 | XMS_ITS | Clinical Summary ---
Author Organization [facility] Address [address] [place] [address] Phone Care Team Providers Care Supply Chain Assistant Name Role Phone Pcp, Unknown Primary Care Provider Unavailabl e Allergies Active Allergy Reactions Criticality Noted Date Comments Gadolinium-Containing Contrast Media Itching,Rash Low 09/11/2023 Hydroxyzine Hcl Unknown,Other (See Comments) 09/19/2022 Worsening of a-fib Worsening of a-fib Medications No known medications Social History Tobacco Use Types Packs/Day Years Used Date Smoking Tobacco: Never Assessed Education Answer Date Recorded Are you interested in more education? Not on rodrigo e 08/02/2024 Are you concerned about learning? Not on file 08/02/2024 No 08/02/2024 No 08/02/2024 Digital Access Answer Date Recorded No 08/02/2024 No 08/02/2024 Reliable internet access at home? Not on file 08/02/2024 Device with a working camera? Not on file Intimate Partner Violence Answer Date R ecorded Are you denied basic needs s uch as food, clothing, or medical care? No 08/02/2024 In the past 12 months have y ou been in a relationship with a person who hurts, threatens, or tries to control you? No 08/02/2024 Are you denied basic needs s uch as food, clothing, or medical care? No 08/02/2024 In the past 12 months have y ou been in a relationship with a person who hurts, threatens, or tries to control you? No 08/02/2024 Sex and Gender Information Value Date Recorded Sex Assigned at Not on file Legal Sex Male 4:54 AM EST Gender Identity Not on file Sexual Orientation Not on file Last Filed Vital Signs Vital Sign Reading Time Taken Comments Blood Pressure 113/70 08/02/2024 9:17 AM EST Pulse 91 08/02/2024 9:17 AM EST Temperature 37 C (98.6 F) 08/02/2024 9:17 AM EST Respiratory Rate 14 08/02/2024 9:17 AM EST Oxygen Saturation 100% 08/02/2024 9:17 AM EST Inhaled Oxygen Concentration - - Weight 117.9 kg (260 lb) 08/02/2024 5:19 AM EST Height 190.5 cm (6' 3 ) 08/02/2024 5:19 AM EST Body Mass Index 32.5 08/02/2024 5:19 AM EST Plan of Treatment Health Maintenance Due Date Last Done Comments Adult Td,Tdap Booster 1977 DEPRESSION SCREENING 1989 SMOKING Hx and SMOKELESS TOBACCO SCREENING 1990 HIV ONE-TIME SCREENING (18-6 5 YEARS) 1995 COLONOSCOPY 2022 FIT TEST 2022 FOBT 2022 SIGMOIDOSCOPY 2022 VIRTUAL COLONOSCOPY 2022 INFLUENZA VACCINE (#1) 2025 COVID-19 VACCINE (1 - 2023-2 5 season) 2025 COLOGUARD 10/04/2025 10/04/2022 COLORECTAL CANCER SCREENING 10/04/2025 SCREENING FOR DIABETES 07/11/2027 07/11/2024 LIPID PANEL 07/11/2029 07/11/2024, 09/12/2023 HEPATITIS C SCREENING Completed 09/12/2023 HEPATITIS A VACCINES Aged Out No long er eligible based on patient's age to complete this topic HIB VACCINES Aged Out No longer eligi ble based on patient's age to complete this topic MENINGOCOCCAL VACCINES (ACWY) Aged Out No longer eligible based on patient's age to complete this topic MENINGOCOCCAL VACCINES (B) Aged Out N o longer eligible based on patient's age to complete this topic PNEUMOCOCCAL VACCINES (0-49 years) Aged Out No longer eligible b ased on patient's age to complete this topic Medical Devices Not on file [facility] PPO CIGNA PPO CIGNA PPO CIGNA PPO CIGNA PPO Care Teams Supply Chain Assistant Relationship Specialty Start Date End Date Pcp, Unknown PCP - General 08/02/24 Additional Source Comments The information contained in this document represents components of the legal health record. It is not the complete legal health record.[facility]
--- OUTSIDE RECORDS SUMMARY | 2025-04-06 03:11 | XMS_ITS | Encounter Summary ---
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 [...] on filedocumented in this encounter Care Teams Magento Developer Relationship Specialty Start Date End Date Artie Grant MD [address] [place] [phone] PCP - General 06/14/23 Artie Grant MD [address] [place] [phone] PCP - Backup PCP Family Medicine 08/10/23 documented as of this encounter
--- OUTSIDE RECORDS SUMMARY | 2025-04-06 03:11 | XMS_ITS | Encounter Summary ---
Author Organization [facility] Address [address] [place] [address] Care Team Providers Care Lpn Home Health Name Role Phone Artie Grant MD Primary Care Provider [phone] Artie Grant MD Unavailable [phone] Reason for Visit * Reason Comments E-prescribing Refill Request Encounter Details Date Type Department Care Team (Late st Contact Info) Description 03/16/2024 Refill [facility] [address] [place] [address] Artie Grant MD [address] [place] [address] E-prescribing Refill Request Social History [...] 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 documented in this encounter Plan of Treatment Upcoming Encounters Date Type Department Care Team (Late st Contact Info) Description 04/09/2025 8:00 AM EDT Office Visit [facility] [address] [place] [address] Artie Grant MD [address] [place] [address] Return for 6 month f/u [...] on filedocumented in this encounter Care Teams Lpn Home Health Relationship Specialty Start Date End Date Artie Grant MD [address] [place] [address] PCP - General 06/14/23 Artie Grant MD [address] [place] [address] PCP - Backup PCP Family Medicine 08/10/23 documented as of this encounter
--- NOTE | 2025-04-06 03:20 | PC.NURSE ---
PT BIBA. for etoh and abdominal pressure. Pt reports being a daily drinker for several of years. Despite reporting an intake of 1L/a sleeve of nips daily, he states he has been trying to detox. PT also complains of Right sided abdominal pain that has been consistent since 2007, since the removal of his gallbladder. PT reports black liquid stool x4 days, denies symptoms, CP, or SOB. Asking staff for vodka right now. i need a drink real bad right now PT actively to internal stimuli. heard stating Im not fucking going anywhere you think I'm fucking done? I'm fucking drinking my life away, Im done controlling this man, I've been fighting this for year man yeah im going to get up and fight back then beginning to laugh to himself, and then states lets just fucking walk out, lets get out of here PT states he is actively hearing voices. Denies SI/HI. Provider aware Seizure pads placed, precautions in place
[2025-04-06 03:52] LABS: MANUAL DIFF FLAG NO
[2025-04-06 03:54] LABS: Hematocrit 43.6 % (42.0-52.0); Hemoglobin 15.7 g/dl (14.0-18.0); Imm Gran Abs Auto 0.02 X10*3/uL (0.00-0.03); Imm Gran Pct Auto 0.3 % (0.0-0.4); Lymphocytes Absolute Auto 3.1 X10*3/uL (1.2-4.9); Mean Corpuscular HGB Conc 36.0 g/dl (31.0-36.0); Mean Corpuscular Hemoglobin 30.5 pg (27.0-33.0); Mean Corpuscular Volume 84.8 fL (80.0-98.0); NRBC Abs Auto 0.000 X10*3/uL (0.0-0.012); NRBC Pct Auto 0.0 /100WBC (0.0-0.2); Platelet Count 248 X10*3/uL (160-400); Red Blood Count 5.14 X10*6/uL (4.60-5.80); White Blood Count 8.0 X10*3/uL (4.8-10.8)
[2025-04-06 04:13] LABS: Alanine Aminotransferase 103 U/L (0-40); Albumin Level 4.0 g/dL (3.5-5.0); Alkaline Phosphatase 90 U/L (39-117); Anion Gap 20 (12-20); Aspartate Amino Transferase 107 U/L (5-37); Blood Urea Nitrogen 21 mg/dL (9-16); Calcium 8.4 mg/dL (8.4-10.2); Carbon Dioxide 20 mmol/L (22-29); Chloride 103 mmol/L (96-108); Creatinine Clr Calc Pharmacy 112.3; Estimated Glomerular Filt Rate > 60; Lipase 48 U/L (8-78); Magnesium 2.0 mg/dL (1.6-2.6); Potassium 3.7 mmol/L (3.3-5.1); Sodium 139 mmol/L (135-145); Total Protein 6.7 g/dL (6.5-8.0)
--- NOTE | 2025-04-06 04:25 | PC.NURSE ---
Pt continuing to respond to internal stimuli/self-dialoguing. Endorsing increased anxiety. Provider aware. PT medicated as per sep.
--- NOTE | 2025-04-06 04:52 | ED.ALCOHOL ---
HPI - Alcohol General Chief Complaint: ETOH/Substance Use Stated Complaint: ETOH, ABD Pain Time Seen by Provider: 04/06/25 02:41 Source: family Mode of arrival: EMS Limitations: other History of Present Illness ED Provider: Dr. Kristen Mondragon HPI narrative: Patient comes to the emergency room via ambulance. Patient called himself EMS because he was too drunk. Patient admits that he drinks 3-5 sleeps of vodka per day. Patient denies any injuries. patient is unable to give any significant history, patient is too intoxicated talking to himself, seems to be hallucinating? Responding to internal stimuli. Related Data Home Medications ?Medication ?Instructions ?Recorded ?Confirmed albuterol sulfate 90 mcg/actuation 2 inh inhalation Q6H PRN Shortness 11/04/24 04/06/25 aerosol inhaler Of Breath Or Wheezing atorvastatin 20 mg tablet 20 mg PO DAILY 11/04/24 04/06/25 escitalopram oxalate 20 mg tablet 20 mg PO DAILY 11/04/24 04/06/25 fluticasone 250 mcg-salmeterol 50 1 ea inhalation BID 11/04/24 04/06/25 mcg/dose blistr powdr for inhalation insulin glargine 100 unit/mL (3 35 unit subcut DAILY 11/04/24 04/06/25 mL) subcutaneous pen (Basaglar KwikPen U-100 Insulin) lisinopril 20 mg tablet 20 mg PO DAILY 11/04/24 04/06/25 metoprolol succinate 100 mg 100 mg PO DAILY 11/04/24 04/06/25 tablet,extended release 24 hr loratadine 10 mg tablet 10 mg PO DAILY 12/19/24 04/06/25 omeprazole magnesium 20 mg 20 mg PO DAILY@0630 12/19/24 04/06/25 tablet,delayed release (Prilosec OTC) Allergies Allergy/AdvReac Type Severity Reaction Status Date / Time hydroxyzine Allergy Palpitation Verified 04/06/25 04:16 s Iodinated Contrast Media AdvReac Rash Verified 04/06/25 03:12 (Contrast Dye) Review of Systems Review of Systems: Yes Other ( Too intoxicated to give any history) PMFSH Past Medical History Medical History Transaminitis Pancreatitis Alcohol dependence Alcohol abuse Social History Social History Household Members: Other Household Members Other:: Roommate. Housing: House Do you presently have visiting nurse or other home services: No Alcohol intake: current Alcohol intake frequency: 3 or more drinks per day Alcohol type: beer and hard liquor Comment: [place] Patient Tobacco Use Status: Never used Tobacco Smoked in Last 30 Days: No Use of substances other than those prescribed or required for medical reasons: No Advance Directives: Yes Advance Directives on File: Yes Advance Directives Date on File: 12/23/24 Do you have a plan to hurt others: No Plan service: No Physical Exam ED Exam Exam: Appearance: Alert. Oriented X1. intoxicated/under the influence of drugs versus alcohol Eyes: Pupils equal, round and reactive to light. ENT: Pharynx normal. Neck: Normal inspection. Neck supple. No lymph nodes noted. No crepitus CVS: Normal heart rate and rhythm. Pulses normal. Normal S1 and S2 Respiratory: No respiratory distress. Breath sounds normal. No Wheezing. No rales Abdomen: Soft and nontender. No rigidity. No distention. Skin: Skin warm and dry. Normal skin color. Normal skin turgor. Extremities: No lower extremity edema. No Lacerations. No Rash Neuro: Oriented X 1. No motor deficit. No sensory deficit. Moving all extremities. No slurred speech. CN 2 through 12 grossly intact Psych: patient is talking, possibly hallucinating, symptoms that he is having conversation with at least 2 other nonexisting characters Vital Signs: Vital Signs - 24 hr 04/06/25 05:57 04/06/25 13:40 Temperature 97.6 F Pulse Rate 78 74 Respiratory Rate 16 14 Blood Pressure 100/53 L 104/62 Pulse Oximetry 94 95 Oxygen Delivery Method Room Air Room Air BMI result Body Mass Index 30.4 Course Course Course Narrative: patient came in for occult intoxication. Questionably hallucinating. Patient denies any falls or any injuries. Reevaluation(s) Reevaluation #1: I, Dr. Molina have take over the care of this patient, I reviewed pertinent blood work and imaging, re-evaluated the patient when appropriate. We will re-evaluate the patient, make sure he is no longer intoxicated, he was making suicidal questions while intoxicated we will make sure no ongoing SI Time: 07:14 Reevaluation #2: Patient will be a detox bed search. He will remain in observation. Patient's med rec pending.Care team eval pending Time: :34 Reevaluation #3: Time: 16:25 Date: 04/06/25 Provider: Som Camacho MD Physician observation ended at 16:25 hours. Patient was evaluated by the recovery team. Patient is going to pursue outpatient detox and he was given information from the recovery team clinician. Patient was given printed and verbal instructions and discharged home. Medical Decision Making Medical Decision Making MDM Narrative: Patient was given p.o. Haldol, Ativan, Benadryl. Patient very intoxicated, trying to get out of bed. With directable. Questionably hallucinating versus very intoxicated patient wanted to leave multiple times but given his state of mind, we did not allow him. Patient was easily redirectable back to bed. However, when patient becomes sober we will reassess for SI or HI Differential Diagnosis Differential Diagnoses: The differential diagnosis associated with the presentation includes ( alcohol intoxication, under the influence of drugs. New onset hallucinations?) Admission/Observation Consideration of admission/observation: Escalation of care including admission/observation considered ( Given patient's presentation, observation has been considered.) Lab Data 04/06/25 03:48 04/06/25 03:48 Labs: Lab Results 04/06/25 04/06/25 Range/Units 03:48 06:07 WBC 8.0 (4.8-10.8) X10*3/uL RBC 5.14 (4.60-5.80) X10*6/uL Hgb 15.7 (14.0-18.0) g/dl Hct 43.6 (42.0-52.0) % MCV 84.8 (80.0-98.0) fL MCH 30.5 (27.0-33.0) pg MCHC 36.0 (31.0-36.0) g/dl RDW 13.0 (11.0-16.0) % Plt Count 248 (160-400) X10*3/uL MPV 9.8 (9.4-12.4) fL Immature Gran % (Auto) 0.3 (0.0-0.4) % Neut % (Auto) 51.2 (45-73) % Lymph % (Auto) 39.2 (20-40) % [place] % (Auto) 6.3 (2-11) % Eos % (Auto) 2.5 (0-4) % Baso % (Auto) 0.5 (0-2) % Lymph # (Auto) 3.1 (1.2-4.9) X10*3/uL [place] # (Auto) 0.5 (0.1-1.2) X10*3/uL Eos # (Auto) 0.2 (0.0-0.4) X10*3/uL Baso # (Auto) 0.0 (0.0-0.2) X10*3/uL Abs Immat Gran (auto) 0.02 (0.00-0.03) X10*3/uL Absolute Neuts (auto) 4.1 (2.0-8.3) x10*3/uL Absolute Nucleated RBC 0.000 (0.0-0.012) X10*3/uL Nucleated RBC % (auto) 0.0 (0.0-0.2) /100WBC Sodium 139 (135-145) mmol/L Potassium 3.7 (3.3-5.1) mmol/L Chloride 103 (96-108) mmol/L Carbon Dioxide 20 L (22-29) mmol/L Anion Gap 20 (12-20) BUN 21 H (9-16) mg/dL Creatinine 1.12 (0.5-1.4) mg/dL Estim Creat Clear Calc 112.3 Estimated GFR > 60 Random Glucose 269 H (60-115) mg/dL Calcium 8.4 (8.4-10.2) mg/dL Magnesium 2.0 (1.6-2.6) mg/dL Total Bilirubin 1.8 H (0.0-1.0) mg/dL AST 107 H (5-37) U/L ALT 103 H (0-40) U/L Alkaline Phosphatase 90 (39-117) U/L Total Protein 6.7 (6.5-8.0) g/dL Albumin 4.0 (3.5-5.0) g/dL Lipase 48 (8-78) U/L Urine Color Yellow Urine Appearance Clear Urine pH 5.5 (5.0-9.0) Ur Specific [place] 1.020 (1.005-1.025) Urine Protein 100 (2+) H (Neg-Trace) mg/dL Urine Glucose (UA) 500 H (Negative) mg/dL Urine Ketones 15 (Negative) mg/dL Urine Blood Negative (Negative) Urine Nitrite Negative (Negative) Ur Leukocyte Esterase Negative (Negative) Urine RBC 0-2 (0-2) /HPF Urine WBC 0-5 (0-5) /HPF Ur Squamous Epith Cells 6-10 (0-2) /HPF Calcium Oxalate Crystal Present Urine Bacteria None Seen (None Seen) Hyaline Casts >20 (0-2) /LPF Urine Opiates Screen Not Detected (Not Detect) Ur Buprenorphine Scrn Not Detected (Not Detect) ng/mL Ur Oxycodone Screen Not Detected (Not Detect) ng/mL Urine Methadone Screen Not Detected (Not Detect) ng/mL Urine Fentanyl Screen Not Detected (Not Detect) Ur Barbiturates Screen Not Detected (Not Detect) Ur Phencyclidine Scrn Not Detected (Not Detect) Ur Amphetamines Screen Not Detected (Not Detect) U Benzodiazepines Scrn POSITIVE H (Not Detect) Urine Cocaine Screen Not Detected (Not Detect) U Marijuana (THC) Screen Not Detected (Not Detect) Ethyl Alcohol 332 H* mg/dL Medications Administered Discontinued Medications Generic Name Dose Route Start Last Admin Trade Name Freq PRN Reason Stop Dose Admin Diphenhydramine HCl 50 mg 04/06/25 03:51 04/06/25 04:05 Diphenhydramine Hcl 25 Mg Capsule PO 04/06/25 03:52 Not Given ONCE ONE Haloperidol 5 mg 04/06/25 03:51 04/06/25 04:01 Haloperidol 5 Mg Tablet PO 04/06/25 03:52 5 mg ONCE ONE Administration Lorazepam 2 mg 04/06/25 03:51 04/06/25 04:00 Lorazepam 1 Mg Tablet PO 04/06/25 03:52 2 mg ONCE ONE Administration Lorazepam 2 mg 04/06/25 06:25 04/06/25 06:33 Lorazepam 1 Mg Tablet PO 04/06/25 06:26 2 mg ONCE ONE Administration Lorazepam 2 mg 04/06/25 14:13 04/06/25 14:18 Lorazepam 1 Mg Tablet PO 04/06/25 14:14 2 mg ONCE ONE Administration Critical Care Time Critical Care Time Critical Care Time: Yes Total Critical Care Time: 35 Attestation: I have personally provided critical care time. Time includes review of lab data, radiology results, discussion with consultants, and monitoring for potential decompensation. Intervention performed as documented. Discharge Plan Discharge Clinical Impression: Alcohol intoxication, Alcohol use disorder Patient Disposition: Home, Self-Care Additional Instructions: Your alcohol level was very high at 332. The alcohol blood level for intoxication is 80. Your liver tests were elevated suggesting that your drinking alcohol is starting to hurt your liver. If you continue to drink alcohol you will eventually scar your liver and developed cirrhosis of the liver which can then lead to . You were seen by our recovery clinician and were given information on outpatient detox facilities. Please call these facilities tomorrow to see if you can get into a detox program to help with your alcohol use disorder. Alcohol use disorder You were seen in the Emergency Department today for treatment of alcohol use disorder.? If you would like to cut down or stop your alcohol use please consider calling our outpatient Addiction Treatment office:? [facility] (M-F [id number]) [address] [place] [address] [address] You have also been given a list of treatment providers in the area that can assist as well.? If you experience seizures, vomiting blood, black stools, falls, severe headache, chest pain, fevers, trouble breathing, hallucinations or any other concerns you need to call 911 or seek immediate care. Please stay hydrated. Prescriptions: No Action loratadine 10 mg Tablet 10 mg PO DAILY omeprazole magnesium [Prilosec OTC] 20 mg Tablet,Delayed Release (Dr/Ec) 20 mg PO DAILY@0630 fluticasone propion-salmeterol 250-50 mcg/dose blister with device 1 ea inhalation BID atorvastatin 20 mg tablet 20 mg PO DAILY lisinopril 20 mg tablet 20 mg PO DAILY metoprolol succinate 100 mg tablet extended release 24 hr 100 mg PO DAILY albuterol sulfate 90 mcg/actuation HFA aerosol inhaler 2 inh inhalation Q6H PRN (Reason: Shortness Of Breath Or Wheezing) escitalopram oxalate 20 mg tablet 20 mg PO DAILY insulin glargine [Basaglar KwikPen U-100 Insulin] 100 unit/mL (3 mL) insulin pen 35 unit subcut DAILY Print Language: Wolof
[2025-04-06 05:57] VITALS: BP 100/53; PULSE 78; RESP 16; TEMP 36.4; O2SAT 94
[2025-04-06 06:19] LABS: Appearance Urine Clear; Glucose Urine UA 500 mg/dL (Negative); PH 5.5 (5.0-9.0); Specific Gravity - Urine 1.020 (1.005-1.025); UMIC TRIGGER UACC YES
[2025-04-06 06:28] LABS: Cannabinoid Screen Urine Not Detected (Not Detect)
--- NOTE | 2025-04-06 06:33 | PC.NURSE ---
CIWA 8, provider notified. pt medicated as per mar
--- NOTE | 2025-04-06 08:22 | PC.NURSE ---
This RN assumed care of patient @ 0700 Patient currently sleeping No signs of distress noted at this time. Patient changed over Plan of care on going
[2025-04-06 13:40] VITALS: BP 104/62; PULSE 74; RESP 14; O2SAT 95
--- NOTE | 2025-04-06 13:43 | PC.NURSE ---
Patient still sleeping in hallway Patient alert Denies pain and SOB CIWA [address] Plan of care on going
--- NOTE | 2025-04-06 17:05 | PC.NURSE ---
Pt given clothing by staff member, upon attempts by this proposal writer to discharge patient noted to have left ED.
[2025-04-06 17:06] VITALS: BP 104/62; PULSE 74; RESP 14; TEMP 36.7; O2SAT 95
== END 2025-04-06 17:05 | disposition home or self-care (01) ==
PROVIDERS: Emergency Provider Emergency Medicine
DX: F10.129 Alcohol abuse with intoxication, unspecified (principal); Y90.8 Blood alcohol level of 240 mg/100 ml or more
CPT/HCPCS: 36415; 80053; 80307; 81001; 83690; 83735; 85025; 99284; S9485

== ENCOUNTER 2025-04-09 06:25 | Inpatient (IN) | payer OTHER, SELFPAY ==
[2025-04-09] VITALS (8 sets, daily range): BP systolic 103–130; BP diastolic 70–84; PULSE 72–88; RESP 16–18; TEMP 36.4–36.9; O2SAT 96–100; BMI 32.5
--- NOTE | ~2025-04-09 | CT_ITS ---
EXAMINATION: CT CERVICAL SPINE WITHOUT CONTRAST CLINICAL INFORMATION: EtOH. Status post fall. COMPARISON: None available. TECHNIQUE: Contiguous axial images through the cervical spine using 3 mm collimation with bone and soft tissue algorithm. Sagittal and coronal reformatted images acquired. DLP: [address] examination was performed using dose optimization techniques as appropriate, variously including the following: *Automated exposure control *Adjustment of mA and/or kV according to patient size (this includes techniques or standardized protocols for targeted exams where dose is matched to indication/reason for exam; i.e. extremities or head) *Use of iterative reconstruction technique FINDINGS: The exam extends from the craniocervical junction to the superior endplate of C7. Craniocervical junction is intact with normal alignment between the occipital condyles and lateral masses of C1. C1 is intact. C2 is intact. C3 is intact. C4 is intact. C5 is intact. C6 is intact. C3 7 is no fully included demonstrated no gross medical disruption. Bilateral facet joint hypertrophy at multiple levels involving mostly the left side. No gross malalignment between the vertebral bodies or the facet joints from C2 to C6 7 levels. Marginal osteophyte formation and endplate sclerosis with decreased intervertebral disc height at C6-7. No gross prevertebral compartment hematoma. Tympanic cavities and mastoid antrum are aerated. L3 levels in the sphenoid sinus and polypoid mucosal thickening, maxillary sinuses. CT/CT cervical spine wo IV con IMPRESSION: No acute fracture or trauma-related listhesis. Multilevel spondylosis, pronounced at C6-7. Fleischner guidelines were followed. Electronically signed by: Ministerio Zepeda MD 04/09/2025 08:35 AM EDT
--- NOTE | ~2025-04-09 | CT_ITS ---
EXAMINATION: CT HEAD WITHOUT IV CONTRAST HISTORY: ETOH, fall. TECHNIQUE: Unenhanced helical CT of the head was performed per standard departmental protocol. Coronal and sagittal reformats of the head were also evaluated. One or more of the following techniques was used for dose reduction: Automated exposure control, adjustment of the mA and/or kV according to patient size, use of iterative reconstruction technique. DLP: 776 mGy-cm COMPARISON: There are no prior studies available for comparison. FINDINGS: BRAIN: The brain parenchyma is unremarkable. There is normal siu/white differentiation. The ventricular system is normal in size and configuration. There is no mass effect or midline shift. No intra- or extra-axial fluid collections are identified. SINUSES: There is mucosal thickening in the bilateral maxillary sinuses. The mastoid air cells and middle ear cavities are well pneumatized. ORBITS: The visualized orbits are unremarkable. BONES/SOFT TISSUES: The extracranial soft tissues are unremarkable. The calvarium is intact. No suspicious lytic or sclerotic lesions. CT/CT head/brain wo IV con IMPRESSION: Unremarkable unenhanced head CT. Electronically signed by: Lexx Mccain MD 04/09/2025 08:30 AM EDT
--- NOTE | ~2025-04-09 | US_ITS ---
EXAMINATION: US ABDOMEN LIMITED CLINICAL INFORMATION: transaminitis/ etoh abuse. COMPARISON: Previous CT of the abdomen and pelvis December 2024 TECHNIQUE: Real-time imaging of the right upper quadrant abdominal viscera. FINDINGS: PANCREAS: Visualized portions are unremarkable. LIVER: The liver is normal in upper normal in size right lobe measuring 18.2 cm. The liver contour is normal. Parenchymal echogenicity is increased. No focal hepatic lesion. There is no intrahepatic biliary duct dilatation seen. GALLBLADDER: Surgically absent. COMMON BILE DUCT: 0.6 to 1.2 cm in diameter, probably normal post cholecystectomy.. RIGHT KIDNEY: No hydronephrosis. No renal calculi or focal parenchymal lesions. The kidney measures 12.6 cm in maximum dimension and FREE FLUID: None. US/US abdomen limited IMPRESSION: Slightly enlarged echogenic liver. No evidence of cirrhosis or focal liver lesion. No ascites. Electronically signed by: Haley Jacobs MD 04/10/2025 12:33 PM EDT
--- NOTE | 2025-04-09 06:40 | PC.NURSE ---
pt reports a fall and ETOH consumption today, not a great historian, unable to tell a full story, he states he was texting his aunt and she asked that he come into the ED because his text were bazaar, EMS states someone called and asked that they do a wellness check on pt. he was found on street near home in [place], they placed him in a C collar. pt currently laying with eyes closed in stretcher. slurred speech noted by this RN.
--- NOTE | 2025-04-09 06:48 | ED_ITS ---
HPI - Fall General Chief Complaint: Fall Stated Complaint: ETOH Time Seen by Provider: 04/09/25 06:47 Source: patient and EMS Mode of arrival: EMS Limitations: no limitations History of Present Illness ED Provider: HPI Narrative: 49-year-old male with a history of alcohol use disorder was found on the side of the road, EMS found patient on the side of the road he was hallucinating, per EMS report, patient does not recall falling down but he was placed in a cervical collar that he was really states it was not able to tolerate, he states he has depression that is what he drinks, no SI or HI. Denies chest pain or shortness of breath. Related Data Home Medications ?Medication ?Instructions ?Recorded ?Confirmed albuterol sulfate 90 mcg/actuation 2 inh inhalation Q6 H PRN Shortness 11/04/24 04/06/25 aerosol inhaler Of Breath Or Wheezing atorvastatin 20 mg tablet 20 mg PO DAILY 11/04/2403/11 escitalopram oxalate 20 mg tablet 20 mg PO DAILY 11/0404/06/25 fluticasone 250 mcg-salmeterol 50 1 ea inhalation BID 11/04/24 04/06/25 mcg/dose blistr powdr for inhalation insulin glargine 100 unit/mL (3 35 unit subcut DAILY 0 11/04/24 04/06/25 mL) subcutaneous pen (Basaglar KwikPen U-100 Insulin) lisinopril 20 mg tablet 20 mg PO DAILY 11/04/2403/11 metoprolol succinate 100 mg 100 mg PO DAILY 11/04/24 0 04/06/25 tablet,extended release 24 hr loratadine 10 mg tablet 10 mg PO DAILY 12/19/2403/11 omeprazole magnesium 20 mg 20 mg PO DAILY@0630 5 04/06/25 tablet,delayed release (Prilosec OTC) Allergies Allergy/AdvReac Type Severity Reaction Status Date / Time hydroxyzine Allergy Palpitation Verified 04/09/25 06:38 s Iodinated Contrast Media AdvReac Rash Verified 04/09/25 06:38 (Contrast Dye) Review of Systems 2 Constitutional: Constitutional: Reports as per HPI [facility] Past Medical History Medical History Transaminitis Pancreatitis Alcohol dependence Alcohol abuse Social History Social History Household Members: Other Household Members Other:: Roommate. Housing: House Do you presently have visiting nurse or other home services: No Alcohol intake: current Alcohol intake frequency: 3 or more drinks per day Alcohol type: beer and hard liquor Comment: CIWA Patient Tobacco Use Status: Never used Tobacco Smoked in Last 30 Days: No Use of substances other than those prescribed or required for medical reasons: No Advance Directives: Yes Advance Directives on File: Yes Advance Directives Date on File: 12/23/24 service: No Physical Exam 2 Vital Signs: Vital Signs: Last Vital Signs Temp 98 F 04/09/25 13:36 Pulse 72 04/09/25 13:36 Resp 16 04/09/25 13:36 BP 103/70 04/09/25 13:36 Pulse Ox 100 04/09/25 13:36 O2 Del Method Room Air 04/09/25 13:36 BMI result Body Mass Index 32.5 Const: Other: General: Appears of stated age, no obvious injury noted to the face, scalp * PERRLA, no scleral icterus * Neck: No tenderness, cervical collar he asked me to clear it is not it is bruising * CV: RRR, no obvious murmurs appreciated * Resp: ?No wheezing rales rhonchi no stridor moving air well * Abd: ?Bowel sounds are present, no tenderness no rebound no rigidity * MSK: FROM, strength 5/5 all extremities * Skin: Warm, dry, intact, * Neuro: ?Alert and oriented x3, moving upper and lower extremities symmetrically, no obvious facial asymmetry noted, cranial nerves 2-12 intact Medical Decision Making Medical Decision Making MDM Narrative: 7:02 AM 04/09/2025 (Dr. Adeel Molina): Presenting with intoxication, this is self-reported, possible fall that there was no obvious trauma noted head-to-toe exam, I removed his collar as he was not tolerating it and it was partially removed any way, we spoke about why he has been drinking so much and whether he needs recovery as this is his 3rd or 4th time this month in the ER, he is otherwise functional individual and I have seen them in the past, he has a full-time job managing commercial real estate. 12:00 PM 04/09/2025 (Dr. Adeel Molina): Patient is not interested in rehab but continues to be sleepy and intoxicated 2:19 PM 04/09/2025 (Dr. Adeel Molina): Patient set up, became very tremulous, started retching, obvious withdrawal, at this point he is realizing that he needs help and he is going to need fluids IV benzos, there was no obvious history of withdrawals but he states he has the shakes pretty bad , medical admission is anticipated Differential Diagnosis Differential Diagnoses: The differential diagnosis associated with the presentation includes Lab Data MDM Lab Attestation statement: I reviewed the patient's lab results. 04/09/25 07:09 04/09/25 07:09 Labs: Lab Results 04/09/25 Range/Units 07:09 WBC 5.3 (4.8-10.8) X10*3/uL RBC 4.84 (4.60-5.80) X10*6/uL Hgb 14.8 (14.0-18.0) g/dl Hct 42.2 (42.0-52.0) % MCV 87.2 (80.0-98.0) fL MCH 30.6 (27.0-33.0) pg MCHC 35.1 (31.0-36.0) g/dl RDW 13.2 (11.0-16.0) % Plt Count 204 (160-400) X10*3/uL MPV 10.2 (9.4-12.4) fL Immature Gran % (Auto) 0.2 (0.0-0.4) % Neut % (Auto) 37.1 L (45-73) % Lymph % (Auto) 53.4 H (20-40) % [place] % (Auto) 7.2 (2-11) % Eos % (Auto) 1.7 (0-4) % Baso % (Auto) 0.4 (0-2) % Lymph # (Auto) 2.8 (1.2-4.9) X10*3/uL [place] # (Auto) 0.4 (0.1-1.2) X10*3/uL Eos # (Auto) 0.1 (0.0-0.4) X10*3/uL Baso # (Auto) 0.0 (0.0-0.2) X10*3/uL Abs Immat Gran (auto) 0.01 (0.00-0.03) X10*3/uL Absolute Neuts (auto) 2.0 (2.0-8.3) x10*3/uL Absolute Nucleated RBC 0.000 (0.0-0.012) X10*3/uL Nucleated RBC % (auto) 0.0 (0.0-0.2) /100WBC Sodium 146 H (135-145) mmol/L Potassium 4.2 (3.3-5.1) mmol/L Chloride 110 H (96-108) mmol/L Carbon Dioxide 21 L (22-29) mmol/L Anion Gap 19 (12-20) BUN 11 (9-16) mg/dL Creatinine 0.79 (0.5-1.4) mg/dL Estim Creat Clear Calc 147.3 Estimated GFR > 60 Random Glucose 335 H (60-115) mg/dL Calcium 8.7 (8.4-10.2) mg/dL Total Bilirubin 1.1 H (0.0-1.0) mg/dL AST 83 H (5-37) U/L ALT 104 H (0-40) U/L Alkaline Phosphatase 88 (39-117) U/L Total Protein 6.8 (6.5-8.0) g/dL Albumin 4.1 (3.5-5.0) g/dL Ethyl Alcohol 328 H* mg/dL Radiology Impression Discussion of test interpretation with radiology: I have reviewed the radiologist's reading. (No acute injuries) Independent Historian Clinical information obtained from an independent historian. History obtained from or confirmed by: EMS Prescription Management I considered prescription management with: Other (Alcohol use disorder) Social Determinants Patient?s care significantly limited by Social Determinants of Health including: Problems related to primary support group Critical Care Time Critical Care Time Critical Care Time: Yes Total Critical Care Time: 45 Attestation: Time is exclusive of separately billable procedures. Time includes: direct patient care, patient reassessment, coordination of patient care, interpretation of data (laboratory data, pulse oximetry, arterial blood gases and chest xrays), review of patient's medical records, medical consultation and documentation of patient care. Procedures excluded from critical care time: central intravenous line placement and electrocardiography. Discharge Plan Discharge Clinical Impression: Alcohol use with withdrawal, Alcohol abuse, Alcohol dependence Prescriptions: No Action loratadine 10 mg Tablet 10 mg PO DAILY omeprazole magnesium [Prilosec OTC] 20 mg Tablet,Delayed Release (Dr/Ec) 20 mg PO DAILY@0630 fluticasone propion-salmeterol 250-50 mcg/dose blister with device 1 ea inhalation BID atorvastatin 20 mg tablet 20 mg PO DAILY lisinopril 20 mg tablet 20 mg PO DAILY metoprolol succinate 100 mg tablet extended release 24 hr 100 mg PO DAILY albuterol sulfate 90 mcg/actuation HFA aerosol inhaler 2 inh inhalation Q6H PRN (Reason: Shortness Of Breath Or Wheezing) escitalopram oxalate 20 mg tablet 20 mg PO DAILY insulin glargine [Basaglar KwikPen U-100 Insulin] 100 unit/mL (3 mL) insulin pen 35 unit subcut DAILY Print Language: Malay
[2025-04-09 07:12] LABS: MANUAL DIFF FLAG NO
[2025-04-09 07:16] LABS: Hematocrit 42.2 % (42.0-52.0); Hemoglobin 14.8 g/dl (14.0-18.0); Imm Gran Abs Auto 0.01 X10*3/uL (0.00-0.03); Imm Gran Pct Auto 0.2 % (0.0-0.4); Lymphocytes Absolute Auto 2.8 X10*3/uL (1.2-4.9); Mean Corpuscular HGB Conc 35.1 g/dl (31.0-36.0); Mean Corpuscular Hemoglobin 30.6 pg (27.0-33.0); Mean Corpuscular Volume 87.2 fL (80.0-98.0); NRBC Abs Auto 0.000 X10*3/uL (0.0-0.012); NRBC Pct Auto 0.0 /100WBC (0.0-0.2); Platelet Count 204 X10*3/uL (160-400); Red Blood Count 4.84 X10*6/uL (4.60-5.80); White Blood Count 5.3 X10*3/uL (4.8-10.8)
[2025-04-09 07:32] LABS: Alanine Aminotransferase 104 U/L (0-40); Albumin Level 4.1 g/dL (3.5-5.0); Alkaline Phosphatase 88 U/L (39-117); Anion Gap 19 (12-20); Aspartate Amino Transferase 83 U/L (5-37); Blood Urea Nitrogen 11 mg/dL (9-16); Calcium 8.7 mg/dL (8.4-10.2); Carbon Dioxide 21 mmol/L (22-29); Chloride 110 mmol/L (96-108); Creatinine Clr Calc Pharmacy 147.3; Estimated Glomerular Filt Rate > 60; Potassium 4.2 mmol/L (3.3-5.1); Sodium 146 mmol/L (135-145); Total Protein 6.8 g/dL (6.5-8.0)
--- OUTSIDE RECORDS SUMMARY | 2025-04-09 08:24 | XMS_ITS | Encounter Summary ---
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
--- OUTSIDE RECORDS SUMMARY | 2025-04-09 08:24 | XMS_ITS | Encounter Summary ---
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 Author Blood Pressure < 140/90 Blood Pressure 98/72(2024 8:44 AM EDT) Brenda Redd, MYA Note: Above is your goal for blood [...] Component 6.1(07/11/19 25 7:28 AM EST) Brenda Redd RN Note: [...] on filedocumented in this encounter Care Teams Administrative Intern Relationship Specialty Start Date End Date Artie Grant MD [address] [place] [phone] PCP - General 06/14/23 Artie Grant MD [address] [place] [phone] PCP - Backup PCP Family Medicine 08/10/23 documented as of this encounter
--- OUTSIDE RECORDS SUMMARY | 2025-04-09 08:24 | XMS_ITS | Encounter Summary ---
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 documented in this encounter Plan of Treatment Not on [...] on filedocumented in this encounter Care Teams Color Coater Relationship Specialty Start Date End Date Artie Grant MD [address] [place] [phone] PCP - General 06/14/23 Artie Grant MD [address] [place] [phone] PCP - Backup PCP Family Medicine 08/10/23 documented as of this encounter
--- OUTSIDE RECORDS SUMMARY | 2025-04-09 08:24 | XMS_ITS | Clinical Summary ---
Author Organization [facility] Address [address] [place] [id number] Care Team Providers Care Bunch Breaker Machine Operator Name Role Phone Artie Grant MD Primary Care Provider [phone] Artie Grant MD Unavailable [phone] Allergies Active Allergy Reactions Criticality Noted Date [...] 2 diabetes mellitus without complication, unspecified whether snf insulin use 1 each by Other route [...] A-fib 09/11/2023 Overview (09/11/2023): Not on anticoagulation. 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 Not on file Not [...] 10/07/2024 8:44 AM EDT Plan of Treatment Health Maintenance Due Date [...] Blood Pressure 98/72(2024 8:44 AM EDT) Brenda Redd RN Note: Above is your [...] 2 diabetes mellitus without complication, unspecified whether snf insulin use ALBUMIN (MICROALBUMIN), RANDOM URINE, WITH CREATININE Routine 07/11/2024 7:28 AM EST Type 2 diabetes mellitus without complication, unspecified whether snf insulin use HEMOGLOBIN A1C Routine 07/11/2024 7:28 AM EST Dyslipidemia associated with type 2 diabetes mellitus LIPID PANEL WITH REFLEX TO DIRECT LDL Routine 07/11/2024 7:28 AM EST Type 2 diabetes mellitus without complication, unspecified whether oil heaterman insulin use HEPATITIS C AB WITH REFLEX TO RNA PCR, SERUM Routine 09/12/2023 2:52 PM EST Need for hepatitis C screening test from Last 3 Months or Most Recently Relevant to Health Maintenance Results * HEMOGLOBIN A1C (07/11/2024 7:28 AM EST) Hemoglobin A1C 6.1 4.3 - 6.1 %A1C [facility] Comment: 5.7-6.4 Increased Risk of Diabetes >6.4 Consistent with Diabetes The [place] [employer] recommends a goal of less than 7% for diabetic patients. 07/11/2024 7:28 AM EST 07/11/2024 1:27 PM EST Narrative [facility] - 07/11/2024 3:14 PM EST Testing performed at [facility], [address] [place] [address], , Materials Scientist: Rebecca Moser MD CL#[id number] us Artie Grant MD LABORATORY Final Result Performing Organization Address [facility] de Phone Number [facility] [address] [place] [address], * (ABNORMAL) ALBUMIN (MICROALBUMIN), RANDOM URINE, WITH CREATININE (07/11/2024 7:28 AM EST) Albumin (Urine) 15 0 - 23 mg/L [facility] Creatinine (Urine) 275(H) 60 - 200 mg/dL [facility] Microalbumin/Cr eat Ratio (Urine) 5 0 - 30 [facility] 07/11/2024 7:28 AM EST 07/11/2024 1:27 PM EST Narrative [facility] - 07/11/2024 3:48 PM EST Testing performed at [facility], [address] [place] [address], , Materials Scientist: Rebecca Moser MD CL#[id number] us Artie Grant MD LABORATORY Final Result Performing Organization Address [facility] de Phone Number [facility] [address] [place] [address], * (ABNORMAL) LIPID PANEL WITH REFLEX TO DIRECT LDL (07/11/2024 7:28 AM EST) Cholesterol 116 0 - 199 mg/dL [facility] Triglyceride 180(H) 0 - 150 mg/dL [facility] VLDL Cholesterol 36 5 - 40 mg/dL [facility] HDL Cholesterol 29(L) 40 - 80 mg/dL [facility] LDL Cholesterol 51 0 - 100 mg/dL [facility] Cholesterol Non-HDL 87 0 - 130 mg/dl [facility] CHOL/HDL Ratio 4.0 [facility] 07/11/2024 7:28 AM EST 07/11/2024 1:27 PM EST Narrative [facility] - 07/11/2024 2:03 PM EST Route to PCP? (if blank or no routes to encounter provider)->No FASTING: YES Testing performed at [facility], [address] [facility], [place] [address], , Materials Scientist: Rebecca Moser MD CL#[id number] Artie Grant MD LABORATORY Final Result [facility] [address] [facility] [place] [address], * (ABNORMAL) COMPREHENSIVE METABOLIC PANEL WITH GFR (07/11/2024 7:28 AM EST) Glucose 129(H) 65 - 99 mg/dL [facility] Comment:Fasting Reference In terval Urea Nitrogen Blood (BUN) 14 6 - 20 mg/dL [facility] Creatinine 0.9 0.5 - 1.2 mg/dL [facility] GFR 106 >=60 [facility] BUN/Creatinine Ratio 16 6 - 25 [facility] Sodium 141 133 - 145 mmol/L [facility] Potassium 4.1 3.3 - 5.3 mmol/L [facility] Chloride 102 96 - 108 mmol/L [facility] Bicarbonate 28 22 - 32 mmol/L [facility] Anion gap 3 11 [facility] Calcium 9.1 8.6 - 10.5 mg/dL [facility] Protein Total (Serum) 6.7 6.2 - 8.2 g/dL [facility] Albumin 4.2 3.5 - 5.2 g/dl [facility] Alkaline phosphatase 85 40 - 130 U/L [facility] AST (SGOT) 22 4 - 40 U/L [facility] ALT (SGPT) 32 4 - 41 U/L [facility] Bilirubin Total 2.1(H) 0.1 - 1.0 mg/dL [facility] Globulin 2.5 1.4 - 4.8 g/dl [facility] Albumin/Globulin 2 1 - 3 [facility] Osmolality 274 253 - 285 mOsm/kg [facility] 07/11/2024 7:28 AM EST 07/11/2024 1:27 PM EST Narrative [facility] - 07/11/2024 2:04 PM EST FASTING: YES Testing performed at [facility], [address] [place] [address], , Materials Scientist: Rebecca Moser MD CL#[id number] us Artie Grant MD LABORATORY Final Result Performing Organization Address [facility] de Phone Number [facility] [address] [place] [address], * HEPATITIS C AB WITH REFLEX TO RNA PCR, SERUM (09/12/2023 2:52 PM EST) Hepatitis C virus Ab NON-REACT MARY ANN NON-REACT MARY ANN [facility] Comment:Antibodies to HCV we re not detected. NOTE: This does not entirely exclude the possibility of exposure to HCV since antibody production may lag infection. If there is a high suspicion of HCV infection HCV RNA testing may be of diagnostic value. 09/12/2023 2:52 PM EST 09/12/2023 8:12 PM EST Narrative [facility] - 09/12/2023 9:55 PM EST Track Order?->No Release result to patient->Immediate Testing Performed at: [facility], [address] [place] [address], , Materials Scientist: Rebecca Moser MD CL#[id number] us Artie Grant MD LABORATORY Final Result Performing Organization Address [facility] Co de Phone Number [facility] [address] [place] [address], from Last 3 Months or Most Recently Relevant to Health Maintenance Insurance [employer] PPO C[employer] PPO Care Teams Bunch Breaker Machine Operator Relationship Specialty Start Date End Date Artie Grant MD [address] [place] [phone] PCP - General 06/14/23 Artie Grant MD [address] [place] [phone] PCP - Backup PCP Family Medicine 08/10/23
--- OUTSIDE RECORDS SUMMARY | 2025-04-09 08:25 | XMS_ITS | Encounter Summary ---
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
--- OUTSIDE RECORDS SUMMARY | 2025-04-09 08:25 | XMS_ITS | Encounter Summary ---
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
--- OUTSIDE RECORDS SUMMARY | 2025-04-09 08:25 | XMS_ITS | Clinical Summary ---
Author Organization [facility] Address [address] [place] [address] Phone Care Team Providers Care Chief Airport Guide Name Role Phone Pcp, Unknown Primary Care [...] topic Medical Devices Not on file [facility]PO CIGNA PPO CIGNA PPO CIG[employer] PPO CIGNA PPO Care Teams Chief Airport Guide Relationship Specialty Start Date End Date Pcp, Unknown PCP - General 08/02/24 Additional Source Comments The information contained in this document represents components of the legal health record. It is not the complete legal health record.[facility]
--- OUTSIDE RECORDS SUMMARY | 2025-04-09 08:25 | XMS_ITS | Encounter Summary ---
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
--- NOTE | 2025-04-09 10:30 | PC.NURSE ---
Dilip Gonzalez (aunt) phone number [phone]
--- NOTE | 2025-04-09 11:11 | PC.NURSE ---
Assumed care of pt, pt lying on stretcher in nad, responsive to verbal stimuli. Pt denies c/o pain, states Im just tired. When pt asked if he was interested in detox, pt stated he was not. Provider updated.
--- NOTE | 2025-04-09 14:15 | PC.NURSE ---
Pt awoke from sleep, very tremulous, dry heaving, and c/o feeling extremely anxious. Provider at bedside for re-eval, now plan to admit for ETOH withdrawal.
[2025-04-09] MEDS: diazePAM 10 MG/2 ML CARTRIDGE IVPUSH ×3 (14:43→20:02)
--- NOTE | 2025-04-09 15:02 | PM.IMHP ---
History of Present Illness Date of Service: 04/09/25 Chief Complaint: Alcohol intoxication 49-year-old male, with a background history of HTN, HLD, T2 DM, GERD, AFib not on anticoagulation, presents to hospital by EMS after found hallucinating on the side of the road. PRESENTATION During my interview with the patient, he reports that he self-called a wellness check on himself because he was intoxicated and would require some assistance. As per ED note, the patient was found on the side of the road hallucinating, by EMS - suffered a fall-placed in a C-collar, and transported to hospital. Patient reports that for the past 10-14 days, he has been drinking 20 units of alcohol per day. He endorses for the past 3 days he has been experiencing nausea and vomiting, and for the past 1 day, has been unable to keep any food or water down (vomiting). He does not endorse abdominal pain. He does endorse ?shakes ? Endorses visual and auditory hallucinations. He denies any melena or hematochezia, hematemesis, bleeding diathesis, ecchymosis. He denies rashes on the body, fevers, chills or rigors. Denies chest pain retrosternal discomfort, dyspnea, diaphoresis, palpitations. On evaluation, the patient is alert and oriented to person place time and situation - it is questionable, however if the patient has a reliable historian at this time. ED COURSE Noted to be tremulous on evaluation in the emergency room, with agitation. Blood work revealing borderline hypernatremia 146, creatinine 0.79, no other electrolyte abnormalities. POC glucose 335. Elevated AST and ALT of 83/104, with a total bilirubin of 1.1. Patient has elevated ethyl alcohol level of 328. Patient was placed in [id number] was not tolerated-this was removed by the emergency room. CT head and CT cervical spine unremarkable for acute intracranial injury. Received ondansetron and 10 mg IV diazepam by the emergency room. Started on normal saline bolus 1 L. Admission placed to Internal Medicine Service. Review of Systems Review of Systems: Yes all other systems are reviewed and are negative PMFSH Medical History Transaminitis Pancreatitis Alcohol dependence Alcohol abuse Social History Household Members: Other Household Members Other:: Roommate. Housing: House Do you presently have visiting nurse or other home services: No Alcohol intake: current Alcohol intake frequency: 3 or more drinks per day Alcohol type: beer and hard liquor Comment: ZONIA Patient Tobacco Use Status: Never used Tobacco Smoked in Last 30 Days: No Use of substances other than those prescribed or required for medical reasons: No Advance Directives: Yes Advance Directives on File: Yes Advance Directives Date on File: 12/23/24 service: No Meds Allergies Allergy/AdvReac Type Severity Reaction Status Date / Time hydroxyzine Allergy Palpitation Verified 04/09/25 06:38 s Iodinated Contrast Media AdvReac Rash Verified 04/09/25 06:38 (Contrast Dye) Active Medications: Current Medications Acetaminophen (Acetaminophen 325 Mg Tablet) 650 mg PO Q6H PRN PRN Reason: Pain, Mild 1-3,fever,headache Calcium Carbonate (Calcium Carbonate 750 Mg Tab.Chew) 750 mg PO Q4H PRN PRN Reason: Heartburn Enoxaparin Sodium (Enoxaparin Sodium 40 Mg/0.4 Ml Syringe) 40 mg SUBCUT Q24H [facility] Sodium Chloride (Ns) 1,000 mls @ 999 mls/hr IV .Q1H1M [facility] Stop: 04/09/25 15:30 Last Admin: 04/09/25 14:44 Dose: 999 mls/hr Magnesium Hydroxide (Milk Of Magnesia 30 Ml Oral.Susp) 30 ml PO DAILY PRN PRN Reason: Constipation Melatonin (Melatonin 3 Mg Tablet) 6 mg PO BEDTIME PRN PRN Reason: Insomnia Ondansetron HCl (Ondansetron Hcl 4 Mg/2 Ml Vial) 4 mg IVPUSH Q8H PRN PRN Reason: Nausea and Vomiting Sodium Chloride (0.9 % Sodium Chloride Flush 3 Ml Syringe) 3 ml IVFLUSH QSHIFT [facility] Home Medications ?Medication ?Instructions ?Recorded ?Confirmed ?Last Taken ?Type albuterol sulfate 90 mcg/actuation 2 inh inhalation Q6H PRN Shortness 11/04/24 04/06/25 11/03/24 06:00 History aerosol inhaler Of Breath Or Wheezing atorvastatin 20 mg tablet 20 mg PO DAILY 11/04/24 04/06/25 12/18/24 History escitalopram oxalate 20 mg tablet 20 mg PO DAILY 11/04/24 04/06/25 12/18/24 History fluticasone 250 mcg-salmeterol 50 1 ea inhalation BID 11/04/24 04/06/25 12/18/24 History mcg/dose blistr powdr for inhalation insulin glargine 100 unit/mL (3 35 unit subcut DAILY 11/04/24 04/06/25 12/18/24 History mL) subcutaneous pen (Basaglar KwikPen U-100 Insulin) lisinopril 20 mg tablet 20 mg PO DAILY 11/04/24 04/06/25 12/18/24 History metoprolol succinate 100 mg 100 mg PO DAILY 11/04/24 04/06/25 12/18/24 History tablet,extended release 24 hr loratadine 10 mg tablet 10 mg PO DAILY 12/19/24 04/06/25 12/18/24 History omeprazole magnesium 20 mg 20 mg PO DAILY@0630 12/19/24 04/06/25 12/18/24 History tablet,delayed release (Prilosec OTC) Physical Exam Vital Signs and Narrative: Vital Signs: Last Vital Signs Temp 97.5 F 04/09/25 14:19 Pulse 88 04/09/25 14:19 Resp 18 04/09/25 14:19 BP 125/82 04/09/25 14:19 Pulse Ox 99 04/09/25 14:19 O2 Del Method Room Air 04/09/25 14:19 BMI result Body Mass Index 32.5 General: A&O x3, oriented to time place person and situation, comfortable, no pain. The patient appears to be agitated, and mildly tremulous at rest. He is disheveled, with vomitus over T-shirt, and personal items. Cardiac: S1, S2 auscultated with no S3/4, no MRG. Well perfused. Regularly regular. Respiratory: Normal breath sounds auscultated throughout all lung zones, without wheezing, rales. Normal rate. GI/ : No abdominal pain on palpation, no masses or distentions. MSK: Normal ambulation without pain at bony prominences or musculature Neurological: Normal neurological examination on overview, without obvious CN II-XII abnormalities. Psych: Auditory and visual hallucinations endorsed; non derogatory, no SI/HI Results Labs 04/09/25 07:09 04/09/25 07:09 Labs: Laboratory Results - last 24 hr 04/09/25 07:09 MCV 87.2 MCH 30.6 MCHC 35.1 RDW 13.2 Plt Count 204 MPV 10.2 Immature Gran % (Auto) 0.2 Neut % (Auto) 37.1 L Lymph % (Auto) 53.4 H Bee % (Auto) 7.2 Eos % (Auto) 1.7 Baso % (Auto) 0.4 Lymph # (Auto) 2.8 Bee # (Auto) 0.4 Eos # (Auto) 0.1 Baso # (Auto) 0.0 Abs Immat Gran (auto) 0.01 Absolute Neuts (auto) 2.0 Absolute Nucleated RBC 0.000 Nucleated RBC % (auto) 0.0 Anion Gap 19 Estim Creat Clear Calc 147.3 Estimated GFR > 60 Random Glucose 335 H Calcium 8.7 Total Bilirubin 1.1 H AST 83 H ALT 104 H Alkaline Phosphatase 88 Total Protein 6.8 Albumin 4.1 Ethyl Alcohol 328 H* Imaging Radiologist's Impressions: Impressions Cervical Spine CT 04/09/25 08:04 IMPRESSION: No acute fracture or trauma-related listhesis. Multilevel spondylosis, pronounced at C6-7. Fleischner guidelines were followed. Electronically signed by: Ministerio Zepeda MD 04/09/2025 08:35 AM EDT RP Head CT 04/09/25 08:04 IMPRESSION: Unremarkable unenhanced head CT. Electronically signed by: Lexx Mccain MD 04/09/2025 08:30 AM EDT RP Assessment and Plan (1) Alcohol abuse: Status: Acute (2) Alcohol dependence: Qualifiers: Substance use status: with intoxication Complication of substance-induced condition: with delirium Qualified Code(s): F10.221 - Alcohol dependence with intoxication delirium Status: Acute (3) Alcohol use with withdrawal: Status: Acute (4) Transaminitis: Status: Acute (5) Acute hypokalemia: Status: Acute (6) Hypomagnesemia: Status: Acute (7) Delirium tremens: Status: Acute (8) Paroxysmal atrial fibrillation: Status: Acute (9) Dehydration: Status: Acute (10) Benign essential HTN: Status: Acute (11) Hyperlipidemia: Qualifiers: Hyperlipidemia type: mixed hyperlipidemia Qualified Code(s): E78.2 - Mixed hyperlipidemia Status: Acute (12) MDD (major depressive disorder): Qualifiers: Major depression recurrence: recurrent Active/Remission status: currently active Major depression episode severity: moderate Qualified Code(s): F33.1 - Major depressive disorder, recurrent, moderate Status: Acute Plan 49-year-old male, with a background history of HTN, HLD, T2 DM, GERD, AFib not on anticoagulation, presents to hospital by EMS after found hallucinating on the side of the road, admitted for acute alcohol intoxication with developing ETOH withdrawal with delirium tremens. Delirium tremens ETOH withdrawal ETOH abuse Patient acutely intoxicated on admission, with elevated ethyl alcohol level and urine. Physical examination consistent with delirium tremens and ETOH withdrawal. Lab work reassuring for normal electrolytes at this time, however we will be monitoring over the next couple of days. We will admit for early withdrawal. PLAN - phenobarbital protocol - CIWA - thiamine 100 mg OD p.o. - folic acid 1 mg OD p.o. - monitor electrolytes closely - addiction Medicine Services to be consulted - cardiac telemetry - encourage p.o. intake and fluid intake - 40 mg IV PPI; transitioned to p.o. when able to intake p.o. Hypovolemic hyponatremia Dehydration Poor p.o. intake PLAN - IV able to be initiated - monitor electrolytes closely Alcoholic hepatitis Hyperbilirubinemia AST ALT elevated, with mild hyperbilirubinemia. The patient was recently admitted on the 06 of April, with higher levels as compared to today. Bilirubin and AST/ALT ratio was happened improving gradually compared to the 06 of April. PLAN - right upper quadrant ultrasonography - hepatitis-C testing - trend LFTs Paroxysmal atrial fibrillation Patient is currently in normal sinus rhythm. ECG to be performed for clarification. He will require cardiac telemetry. Patient reports a history of atrial fibrillation in the past, and is not on anticoagulation-is unable to clarify why. [id number] Score: 2 (HTN/T2 DM) Impression: Holiday heart syndrome PLAN - cardiac telemetry - apixaban 5 mg b.i.d. p.o. - echocardiography - correct electrolyte abnormalities CHRONIC MEDICAL ISSUES HTN: Lisinopril 20 mg OD p.o., metoprolol 100 mg OD p.o. HLD: Continue atorvastatin 20 mg OD p.o. MDD: Continue escitalopram 20 mg OD p.o. T2 DM: POC glucose, insulin sliding scale. Noncompliant QUALITY METRICS - VTE: Heparin 5000 t.i.d. SQ - CODE STATUS: Full code - DIET: Regular Quality Stroke Does the patient have a stroke diagnosis?: No VTE Prior VTE?: No VTE Risk Level:: Medical - moderate - high VTE Device Contraindication: Treatment Not Indicated VTE Drug Contraindication: N/A - Med Ordered
[2025-04-09 15:49] LABS: Lipase 57 U/L (8-78)
--- NOTE | 2025-04-09 16:13 | PHA.MEDREC ---
Addendum entered by James Rosario, Nica 04/09/25 16:41: MED REC CHECKED BY [facility] Original Note: Pharmacy Consult ? Medication Reconciliation Pharmacy has completed the medication reconciliation. Patient was able to name all of his medications. Patient confirmed Basaglar KwikPen 35 units daily. Patient last has his medications 2 days ago.
[2025-04-09] MEDS: PHENobarbitaL 300 MG, PHENobarbitaL 60 MG 360 MG PO (17:15)
[2025-04-09] MEDS: 0.9 % Sodium Chloride Flush 3 ML SYRINGE IVFLUSH (17:18)
[2025-04-09] MEDS: Thiamine HCL 100 MG in 0.9 % Sodium Chloride 100 ML 202 MG IV (17:21)
[2025-04-09] MEDS: Metoprolol Succinate ER 100 MG TAB.ER.24H PO (17:29)
[2025-04-09 18:18] LABS: Glucose, Whole Blood 229 mg/dL (60-115)
--- NOTE | 2025-04-09 18:56 | MHC.EDTECH ---
700mL of augusto colored urine emptied from urinal
[2025-04-09 19:51] LABS: Magnesium 2.0 mg/dL (1.6-2.6)
--- NOTE | 2025-04-09 19:54 | PM.EVENT ---
Event Note Date of Service: 04/09/25 Event Note: Nursing paged regarding ongoing dry heaves, severe and occuring often. Pt seen in the ED and ordered compazin 10 IV times one and protonix as pt was complaining of GERD, refleux. Pharmacy cleared one dose of valium noting pt is on phenobarbitol. Lipase WNL and abdominal exam benign. No indication for abd scan at this time. Pt will start IVF and is now NPO except for ice chips. Reviewed plan of care with nursing. Pt seen after valium and compazine and is feeling better. Time Spent With Patient Time: Total time managing care of this patient today ____ minutes.
[2025-04-09] MEDS: Magnesium Sulfate/H2O 2 GM/50 ML PIGGYBACK IV (20:00)
[2025-04-09] MEDS: PHENobarbitaL 200 MG PO ONCE 300 MG PO ×2 (20:03→23:58)
[2025-04-09] MEDS: Lactated Ringers 1,000 ML 125 ML IVCONT (20:05)
--- NOTE | 2025-04-09 20:25 | HO.NURTONUR ---
Pt has significant pmhx of etoh abuse and withdrawals w/ seizures. Pt states hes been on a binger for the past unknown amount of time and was trying to cut back on etoh himself. However, he was vomiting so much he called ems this am and was found on the floor by ems and arrived to ED in c-collar. C-collar cleared by physician. Upon my arrival @ 11am, pt was not actively in withdrawals and just wanted to sleep . Pt also at this time refused detox citing ...the last time they sent me 7 hours away Pt was unable to be discharged secondary to etoh level being so high and no sober ride available. At approx 1400 pt awoke from sleep and was in full blown etoh withdrawals w/ marked nausea, diaphoresis, and anxiety. IV was placed and pt admitted for etoh withdrawals. Pt has been medicated multiple times for his nausea and most recent CIWA @ 2014 was 19. Pt was medicated at this time and seems to respond well to the valium. Hospitalist FARM MANAGEMENT PROFESSOR at bedside for eval. Verbal order to hold the dilaudid within 1 hour of giving valium for c/o generalized abd pain.
[2025-04-09] MEDS: Flu Vacc TS2025-26(6mo up)/PF 0.5 ML SYRINGE IM (22:28)
[2025-04-10] MEDS: Lactated Ringers 1,000 ML 125 ML IVCONT ×3 (03:47→21:15)
[2025-04-10 04:00] VITALS: BP 109/58; PULSE 73; RESP 18; TEMP 36.7; O2SAT 95
[2025-04-10 06:12] LABS: MANUAL DIFF FLAG NO
[2025-04-10 06:19] LABS: Hematocrit 35.1 % (42.0-52.0); Hemoglobin 12.3 g/dl (14.0-18.0); Imm Gran Abs Auto 0.01 X10*3/uL (0.00-0.03); Imm Gran Pct Auto 0.2 % (0.0-0.4); Lymphocytes Absolute Auto 1.7 X10*3/uL (1.2-4.9); Mean Corpuscular HGB Conc 35.0 g/dl (31.0-36.0); Mean Corpuscular Hemoglobin 30.8 pg (27.0-33.0); Mean Corpuscular Volume 87.8 fL (80.0-98.0); NRBC Abs Auto 0.000 X10*3/uL (0.0-0.012); NRBC Pct Auto 0.0 /100WBC (0.0-0.2); Platelet Count 156 X10*3/uL (160-400); Red Blood Count 4.00 X10*6/uL (4.60-5.80); White Blood Count 5.0 X10*3/uL (4.8-10.8)
[2025-04-10 06:48] LABS: Alanine Aminotransferase 69 U/L (0-40); Albumin Level 3.2 g/dL (3.5-5.0); Alkaline Phosphatase 71 U/L (39-117); Anion Gap 12 (12-20); Aspartate Amino Transferase 52 U/L (5-37); Blood Urea Nitrogen 14 mg/dL (9-16); Calcium 8.0 mg/dL (8.4-10.2); Carbon Dioxide 25 mmol/L (22-29); Chloride 105 mmol/L (96-108); Creatinine Clr Calc Pharmacy 159.4; Estimated Glomerular Filt Rate > 60; Magnesium 1.7 mg/dL (1.6-2.6); Potassium 3.6 mmol/L (3.3-5.1); Sodium 138 mmol/L (135-145); Total Protein 5.5 g/dL (6.5-8.0)
--- NOTE | 2025-04-10 07:00 | CA_ITS ---
Transthoracic Echocardiogram Patient (Last, First, Middle): Cooper Fulton Alan Gender: M Date of : 1975 Age: 49 Procedure Date: 04/10/2025 Procedure Type: Transthoracic Echocardiogram Location: ER Height: 182.88 cm Weight: 108.86 kg BSA: 2.30 m2 Heart Rate: 69 bpm BP: 129 / 67 mmHg Dredge Lever Operator: JAKOB/RADHA Referring MD: Marli Duvall MD Symptoms: afib, etoh abuse Study Quality: Fair ECG Rhythm: Sinus Conclusions: - The left ventricular systolic function is normal. The calculated ejection fraction is 61% by biplane method. - No obvious valvular pathology seen on this study. Findings Left Ventricle Normal left ventricular cavity size. There is normal left ventricular wall thickness. The left ventricular systolic function is normal. The calculated ejection fraction is 61% by biplane method. There is no evidence of regional wall motion abnormalities. Diastolic function is normal for age. Right Ventricle Normal right ventricular cavity size. There is low normal right ventricular systolic function. Atria Both atria are normal in size. Aortic Valve There is a normal trileaflet aortic valve. There is no aortic valve stenosis. There is no aortic valve regurgitation. Mitral Valve There is mild anterior mitral leaflet thickening. There is no mitral valve regurgitation. There is no mitral valve stenosis. Pulmonic Valve The pulmonic valve is likely normal. Tricuspid Valve There is no tricuspid valve regurgitation. Tricuspid regurgitation envelope is inadequate for calculation of right ventricular systolic pressure. Great Vessels The asc aorta is normal in size. Venous The inferior vena cava is normal in size and collapses greater than 50% with inspiration. Pericardium/Pleural There is no evidence of pericardial effusion. Prior Study Comparison No prior study available for comparison. Recommendations, Care & Conclusions No obvious valvular pathology seen on this study. Measurements 2D Linear Measurements IVSd: 0.86 0.6-0.9/0.6-1.0 cm LVIDd: 5.56 3.9-5.3/4.2-5.9 cm LVIDd Index: 2.42 2.4-3.2/2.2-3.1 cm/m2 LVIDs: 3.60 2.0-3.6 cm LVPWd: 0.86 0.7-1.1 cm LA Diam: 3.50 2.7-3.8/3.0-4.0 cm LAIDs Index: 1.52 1.5-2.3 cm/m2 LV Mass: 222.18 67-162/88-224 g LV Mass Index: 96.60 43-95/49-115 g/m2 LVOT Diam: 2.20 3.0+(-)1.3 cm 2D Systolic Function EF 4C: 52.20 >55% EF 2C: 66.80 >55% EF BiP: 60.60 >55% Mitral Valve MV Pk E: 0.72 MV PK A: 0.78 MV Decel Time: 202.00 E/A: 0.90 E'Lateral: 13.80 E'Medial: 10.10 E/E' Med: 7.10 E/E' Lat: 5.20 PHT: 59.00 MVA PHT: 3.73 Decel [place]: 3.55 Aortic Valve AoV Pk Spencer: 1.45 AoV Mn Spencer: 0.99 AoV VTI: 0.28 AoV Pk Grad: 8.00 Aov Mn Grad: 4.00 MIHAELA Cont.VTI: 3.41 LVOT LVOT Pk Spencer: 1.32 LVOT Mn Spencer: 0.81 LVOT VTI: 0.25 LVOT Pk Grad: 7.00 LVOT Mn Grad: 3.00 LVOT Diam: 2.20 LVOT Area: 3.80 Diastolic Function MV Pk E: 0.72 MV Pk A: 0.78 E/A: 0.90 E'Medial: 10.10 E/E' Med: 7.10 E' Laterial: 13.80 E/E' Lat: 5.20 Right Ventricle TAPSE (mm): 32.70 TVS' Spencer: 10.00 Tricuspid Valve RA Press: 3.00 Great Vessels Aorta Sinus of Valsalva: 4.00 2.0-3.5 cm Ao Asc: 3.30 2.1-3.4 cm Pulmonary Veins Pulm Vein S/D 1.40 Pulmonary Valve PV Pk Spencer: 0.80 Peak PV Grad: 3.00 Updated in Other Vendor System with Status of Final Chava Knight MD electronically signed on 04/10/2025 11:42:10 AM with status of Final
[2025-04-10 07:06] VITALS: BP 129/67; PULSE 72; RESP 18; TEMP 36.3; O2SAT 98
[2025-04-10 07:10] LABS: Appearance Urine Clear; Glucose Urine UA >=1000 mg/dL (Negative); PH 5.5 (5.0-9.0); Specific Gravity - Urine >= 1.030 (1.005-1.025); UMIC TRIGGER UA YES
[2025-04-10 07:13] LABS: Glucose, Whole Blood 178 mg/dL (60-115)
[2025-04-10 07:31] LABS: Cannabinoid Screen Urine Not Detected (Not Detect)
[2025-04-10] MEDS: Metoprolol Succinate ER 100 MG TAB.ER.24H PO (07:50)
--- NOTE | 2025-04-10 10:58 | P.PNIM_ITS ---
Subjective Subjective Date of Service: 04/10/25 Interval History: Overnight events reviewed. Patient required diazepam for agitation 2/2 withdrawal/DTs. The patient appears tremulous today, and diaphoretic, however reports he feels better as compared to yesterday. Review of Systems Review of Systems: Yes all other systems are reviewed and are negative Physical Exam 2 Exam: Exam: General: A&O x3, oriented to time place person and situation, comfortable, no pain. Diaphoretic. Cardiac: S1, S2 auscultated with no S3/4, no MRG. Well perfused. Respiratory: Normal breath sounds auscultated throughout all lung zones, without wheezing, rales. Normal rate. GI/ : No abdominal pain on palpation, no masses or distentions. MSK: Normal ambulation without pain at bony prominences or musculature Neurological: Normal neurological examination on overview, without obvious CN II-XII abnormalities. Intention tremor noted. No nystagmus Psychological: No visual or auditory hallucinations today. No HI/SI Vital Signs: Vital Signs: Last Vital Signs Temp 97.3 F 04/10/25 07:06 Pulse 72 04/10/25 07:06 Resp 18 04/10/25 07:06 BP 129/67 04/10/25 07:06 Pulse Ox 98 04/10/25 07:06 O2 Del Method Room Air 04/10/25 07:06 BMI result Body Mass Index 32.5 Objective Data Active Medications Acetaminophen (Acetaminophen 325 Mg Tablet) 650 mg PO Q6H PRN PRN Reason: Pain, Mild 1-3,fever,headache Apixaban (Apixaban 5 Mg Tablet) 5 mg PO BID [facility] Last Admin: 04/10/25 07:49 Dose: 5 mg Documented By: JUSTO Atorvastatin Calcium (Atorvastatin Calcium 20 Mg Tablet) 20 mg PO DAILY [facility] Last Admin: 04/10/25 07:50 Dose: 20 mg Documented By: JUSTO Calcium Carbonate (Calcium Carbonate 750 Mg Tab.Chew) 750 mg PO Q4H PRN PRN Reason: Heartburn Dextrose (Dextrose 50 % 25 Gm/50 Ml Syringe) 25 gm IVPUSH Q15M PRN; Protocol PRN Reason: per Hypoglycemia Standing Ord. Escitalopram Oxalate (Escitalopram Oxalate 20 Mg Tablet) 20 mg PO DAILY [facility] Last Admin: 04/10/25 07:50 Dose: 20 mg Documented By: JUSTO Folic Acid (Folic Acid 1 Mg Tablet) 1 mg PO DAILY [facility] Last Admin: 04/10/25 07:49 Dose: 1 mg Documented By: JUSTO Glucose (Glucose Gel 15 Gm Gel..Gram.) 15 gm PO Q15M PRN; Protocol PRN Reason: per Hypoglycemia Standing Ord. Lactated Ringer's (Lr) 1,000 mls @ 125 mls/hr IVCONT .Q8H [facility] Last Admin: 04/10/25 03:47 Dose: 125 mls/hr Documented By: SHIMA Insulin Human Lispro (Insulin Lispro 100 Unit/Ml 3 Ml Vial) 0 unit SUBCUT QIDACHS [facility]; Protocol Last Admin: 04/10/25 07:52 Dose: Not Given Documented By: JUSTO Non-Admin Reason: NPO Lisinopril (Lisinopril 20 Mg Tablet) 20 mg PO DAILY [facility]; Protocol Last Admin: 04/10/25 07:50 Dose: 20 mg Documented By: JUSTO Magnesium Hydroxide (Milk Of Magnesia 30 Ml Oral.Susp) 30 ml PO DAILY PRN PRN Reason: Constipation Melatonin (Melatonin 3 Mg Tablet) 6 mg PO BEDTIME PRN PRN Reason: Insomnia Metoprolol Succinate (Metoprolol Succinate Er 100 Mg Tab.Er.24h) 100 mg PO DAILY [facility]; Protocol Last Admin: 04/10/25 07:50 Dose: 100 mg Documented By: JUSTO Omeprazole (Omeprazole 40 Mg Capsule.Dr) 40 mg PO DAILY@0630 [facility] Last Admin: 04/10/25 05:55 Dose: Not Given Documented By: SHIMA Non-Admin Reason: iv protonix given Ondansetron HCl (Ondansetron Hcl 4 Mg/2 Ml Vial) 4 mg IVPUSH Q8H PRN PRN Reason: Nausea and Vomiting Last Admin: 04/09/25 16:23 Dose: 4 mg Documented By: SHARI Pantoprazole Sodium (Pantoprazole Sodium 40 Mg/10 Ml Vial) 40 mg IVPUSH BID@0630,1630 [facility] Last Admin: 04/10/25 05:48 Dose: 40 mg Documented By: SHIMA Pharmacy Consult (Consult Rx Etoh Phenob Po Only) 1 each MISCELLANE ONCE PRN; Protocol PRN Reason: Consult order Phenobarbital (Phenobarbital 30 Mg Tablet) 30 mg PO Q4H PRN PRN Reason: Breakthrough alcohol withdrawa Phenobarbital (Phenobarbital 30 Mg Tablet) 60 mg PO BID [facility] Stop: 04/11/25 21:01 Last Admin: 04/10/25 07:50 Dose: 60 mg Documented By: JUSTO Phenobarbital (Phenobarbital 30 Mg Tablet) 30 mg PO BID [facility] Stop: 04/13/25 21:01 Phenobarbital (Phenobarbital 30 Mg Tablet) 30 mg PO DAILY [facility] Stop: 04/15/25 09:01 Sodium Chloride (0.9 % Sodium Chloride Flush 3 Ml Syringe) 3 ml IVFLUSH QSHIFT [facility] Last Admin: 04/10/25 07:51 Dose: Not Given Documented By: JUSTO Non-Admin Reason: IV Running Labs 04/10/25 05:38 04/10/25 05:38 Labs: Laboratory Results - last 24 hr 04/09/25 04/09/25 04/10/25 07:09 18:12 05:38 MCV 87.8 MCH 30.8 MCHC 35.0 RDW 13.0 Plt Count 156 L MPV 10.6 Immature Gran % (Auto) 0.2 Neut % (Auto) 54.8 Lymph % (Auto) 34.3 [place] % (Auto) 8.1 Eos % (Auto) 2.2 Baso % (Auto) 0.4 Lymph # (Auto) 1.7 [place] # (Auto) 0.4 Eos # (Auto) 0.1 Baso # (Auto) 0.0 Abs Immat Gran (auto) 0.01 Absolute Neuts (auto) 2.8 Absolute Nucleated RBC 0.000 Nucleated RBC % (auto) 0.0 Anion Gap 12 Estim Creat Clear Calc 159.4 Estimated GFR > 60 POC Glucose 229 H Random Glucose 174 H Calcium 8.0 L D Magnesium 2.0 1.7 Total Bilirubin 2.5 H AST 52 H ALT 69 H Alkaline Phosphatase 71 Total Protein 5.5 L Albumin 3.2 L Lipase 57 TSH 0.59 Urine Color Urine Appearance Urine pH Ur Specific [place] Urine Protein Urine Glucose (UA) Urine Ketones Urine Blood Urine Nitrite Ur Leukocyte Esterase Urine RBC Urine WBC Ur Squamous Epith Cells Urine Bacteria Hyaline Casts Granular Casts Urine Opiates Screen Ur Buprenorphine Scrn Ur Oxycodone Screen Urine Methadone Screen Urine Fentanyl Screen Ur Barbiturates Screen Ur Phencyclidine Scrn Ur Amphetamines Screen U Benzodiazepines Scrn Urine Cocaine Screen U Marijuana (THC) Screen 04/10/25 04/10/25 06:49 07:05 MCV MCH MCHC RDW Plt Count MPV Immature Gran % (Auto) Neut % (Auto) Lymph % (Auto) [place] % (Auto) Eos % (Auto) Baso % (Auto) Lymph # (Auto) [place] # (Auto) Eos # (Auto) Baso # (Auto) Abs Immat Gran (auto) Absolute Neuts (auto) Absolute Nucleated RBC Nucleated RBC % (auto) Anion Gap Estim Creat Clear Calc Estimated GFR POC Glucose 178 H Random Glucose Calcium Magnesium Total Bilirubin AST ALT Alkaline Phosphatase Total Protein Albumin Lipase TSH Urine Color Dark Yellow Urine Appearance Clear Urine pH 5.5 Ur Specific [place] >= 1.030 H Urine Protein 30 (1+) H Urine Glucose (UA) >=1000 H Urine Ketones 15 Urine Blood Negative Urine Nitrite Negative Ur Leukocyte Esterase Negative Urine RBC 0-2 Urine WBC 0-5 Ur Squamous Epith Cells 0-2 Urine Bacteria None Seen Hyaline Casts 3-5 Granular Casts Present Urine Opiates Screen Not Detected Ur Buprenorphine Scrn Not Detected Ur Oxycodone Screen Not Detected Urine Methadone Screen Not Detected Urine Fentanyl Screen Not Detected Ur Barbiturates Screen POSITIVE H Ur Phencyclidine Scrn Not Detected Ur Amphetamines Screen Not Detected U Benzodiazepines Scrn POSITIVE H Urine Cocaine Screen Not Detected U Marijuana (THC) Screen Not Detected Assessment and Plan (1) Alcohol abuse: Status: Acute (2) Alcohol dependence: Status: Acute (3) MDD (major depressive disorder): Status: Acute (4) Delirium tremens: Status: Acute (5) Alcohol use with withdrawal: Status: Acute (6) Alcohol use disorder, severe, dependence: Status: Acute (7) Benign essential HTN: Status: Acute (8) Paroxysmal atrial fibrillation: Status: Acute (9) Hyperlipidemia: Status: Acute (10) Transaminitis: Status: Acute (11) Acute hypokalemia: Status: Acute (12) Hypomagnesemia: Status: Acute (13) Dehydration: Status: Acute Plan 49-year-old male, with a background history of HTN, HLD, T2 DM, GERD, AFib not on anticoagulation, presents to hospital by EMS after found hallucinating on the side of the road, admitted for acute alcohol intoxication with developing ETOH withdrawal with delirium tremens. Delirium tremens ETOH withdrawal ETOH abuse Patient acutely intoxicated on admission, with elevated ethyl alcohol level and urine. Physical examination consistent with delirium tremens and ETOH withdrawal. Lab work reassuring for normal electrolytes at this time, however we will be monitoring over the next couple of days. We will admit for early withdrawal. PLAN - phenobarbital protocol - CIWA - thiamine 100 mg OD p.o. - folic acid 1 mg OD p.o. - monitor electrolytes closely - addiction Medicine Services to be consulted - cardiac telemetry - encourage p.o. intake and fluid intake - 40 mg IV PPI; transitioned to p.o. when able to intake p.o. Hypovolemic hyponatremia Dehydration Poor p.o. intake PLAN - IV able to be initiated - monitor electrolytes closely Alcoholic hepatitis Hyperbilirubinemia AST ALT elevated, with mild hyperbilirubinemia. The patient was recently admitted on the 06 of April, with higher levels as compared to today. Bilirubin and AST/ALT ratio was happened improving gradually compared to the 06 of April. PLAN - right upper quadrant ultrasonography - hepatitis-C testing - trend LFTs Paroxysmal atrial fibrillation Patient is currently in normal sinus rhythm. ECG to be performed for clarification. He will require cardiac telemetry. Patient reports a history of atrial fibrillation in the past, and is not on anticoagulation-is unable to clarify why. [id number] Score: 2 (HTN/T2 DM) Impression: Holiday heart syndrome PLAN - cardiac telemetry - apixaban 5 mg b.i.d. p.o. - echocardiography - correct electrolyte abnormalities CHRONIC MEDICAL ISSUES HTN: Lisinopril 20 mg OD p.o., metoprolol 100 mg OD p.o. HLD: Continue atorvastatin 20 mg OD p.o. MDD: Continue escitalopram 20 mg OD p.o. T2 DM: POC glucose, insulin sliding scale. Noncompliant [employer] - VTE: Apixaban 5 mg b.i.d. p.o. - CODE STATUS: Full code - DIET: Regular Total time managing care of this patient today: 35 minutes. Quality Stroke Does the patient have a stroke diagnosis?: No VTE Prior VTE?: No VTE Risk Level:: Medical - moderate - high VTE Device Contraindication: Treatment Not Indicated VTE Drug Contraindication: N/A - Med Ordered
--- NOTE | 2025-04-10 11:12 | HO.ADDICTCON ---
History of Present Illness Date of Service: 04/10/25 Chief Complaint: alcohol intoxication and withdrawal Reason for Consult: AUD Sources of Information: patient interviewed and chart reviewed HPI Narrative: Patient is a 49 year old male with AFIB and AUD. Presented to [facility] via ambulance, acutely intoxicated, reporting VH and significant alcohol use. Patient started on phenobarbital protocol and medically admitted. Patient seen in room 385. He is awake, alert, pleasant and engaged in interview. He reports long history of struggling with alcohol use--over 30 years. He reports periods of abstinence, or reduced drinking, however any alcohol leads to loss of control . He states that drinking is often related to his mood--whether it is happy or sad. Drinking has resulted in numerous negative consequences, including, missing work, legal issues, and strained relationships Treatment History History of [facility] admissions and inpatient treatment IOP admission --over 15 years ago, but found it helpful AA --finds helpful History of Naltrexone--was not drinking while taking it. Denies any other substance use Denies any withdrawal sx, reports anxiety is managed Very mild tremor Denies nausea, loose stools Medical Evaluation Reviewed: Yes Review of Systems Constitutional: Reports as per HPI Diagnostics Vital Signs (24Hr): Vital Signs - 24 hr 04/09/25 13:36 04/09/25 14:19 04/09/25 17:29 Temperature 98 F 97.5 F Pulse Rate 72 88 Respiratory Rate 16 18 Blood Pressure 103/70 125/82 127/75 Pulse Oximetry 100 99 Oxygen Delivery Method Room Air Room Air 04/09/25 17:30 04/09/25 18:53 04/10/25 04:00 Temperature 98.0 F 98.0 F Pulse Rate 84 73 Respiratory Rate 16 18 Blood Pressure 127/75 119/73 109/58 L Pulse Oximetry 96 95 Oxygen Delivery Method Room Air Room Air 04/10/25 07:06 Temperature 97.3 F Pulse Rate 72 Respiratory Rate 18 Blood Pressure 129/67 Pulse Oximetry 98 Oxygen Delivery Method Room Air BMI result Body Mass Index 32.5 Labs 04/10/25 05:38 04/10/25 05:38 Labs: Laboratory Results - last 48 hr 04/09/25 04/09/25 04/10/25 07:09 18:12 05:38 WBC 5.3 5.0 RBC 4.84 4.00 L Hgb 14.8 12.3 L Hct 42.2 35.1 L MCV 87.2 87.8 MCH 30.6 30.8 MCHC 35.1 35.0 RDW 13.2 13.0 Plt Count 204 156 L MPV 10.2 10.6 Immature Gran % (Auto) 0.2 0.2 Neut % (Auto) 37.1 L 54.8 Lymph % (Auto) 53.4 H 34.3 [place] % (Auto) 7.2 8.1 Eos % (Auto) 1.7 2.2 Baso % (Auto) 0.4 0.4 Lymph # (Auto) 2.8 1.7 [place] # (Auto) 0.4 0.4 Eos # (Auto) 0.1 0.1 Baso # (Auto) 0.0 0.0 Abs Immat Gran (auto) 0.01 0.01 Absolute Neuts (auto) 2.0 2.8 Absolute Nucleated RBC 0.000 0.000 Nucleated RBC % (auto) 0.0 0.0 Sodium 146 H 138 Potassium 4.2 3.6 Chloride 110 H 105 Carbon Dioxide 21 L 25 Anion Gap 19 12 BUN 11 14 Creatinine 0.79 0.73 Estim Creat Clear Calc 147.3 159.4 Estimated GFR > 60 > 60 POC Glucose 229 H Random Glucose 335 H 174 H Calcium 8.7 8.0 L D Magnesium 2.0 1.7 Total Bilirubin 1.1 H 2.5 H AST 83 H 52 H ALT 104 H 69 H Alkaline Phosphatase 88 71 Total Protein 6.8 5.5 L Albumin 4.1 3.2 L Lipase 57 TSH 0.59 Urine Color Urine Appearance Urine pH Ur Specific [place] Urine Protein Urine Glucose (UA) Urine Ketones Urine Blood Urine Nitrite Ur Leukocyte Esterase Urine RBC Urine WBC Ur Squamous Epith Cells Urine Bacteria Hyaline Casts Granular Casts Urine Opiates Screen Ur Buprenorphine Scrn Ur Oxycodone Screen Urine Methadone Screen Urine Fentanyl Screen Ur Barbiturates Screen Ur Phencyclidine Scrn Ur Amphetamines Screen U Benzodiazepines Scrn Urine Cocaine Screen U Marijuana (THC) Screen Ethyl Alcohol 328 H* 04/10/25 04/10/25 06:49 07:05 WBC RBC Hgb Hct MCV MCH MCHC RDW Plt Count MPV Immature Gran % (Auto) Neut % (Auto) Lymph % (Auto) [place] % (Auto) Eos % (Auto) Baso % (Auto) Lymph # (Auto) [place] # (Auto) Eos # (Auto) Baso # (Auto) Abs Immat Gran (auto) Absolute Neuts (auto) Absolute Nucleated RBC Nucleated RBC % (auto) Sodium Potassium Chloride Carbon Dioxide Anion Gap BUN Creatinine Estim Creat Clear Calc Estimated GFR POC Glucose 178 H Random Glucose Calcium Magnesium Total Bilirubin AST ALT Alkaline Phosphatase Total Protein Albumin Lipase TSH Urine Color Dark Yellow Urine Appearance Clear Urine pH 5.5 Ur Specific [place] >= 1.030 H Urine Protein 30 (1+) H Urine Glucose (UA) >=1000 H Urine Ketones 15 Urine Blood Negative Urine Nitrite Negative Ur Leukocyte Esterase Negative Urine RBC 0-2 Urine WBC 0-5 Ur Squamous Epith Cells 0-2 Urine Bacteria None Seen Hyaline Casts 3-5 Granular Casts Present Urine Opiates Screen Not Detected Ur Buprenorphine Scrn Not Detected Ur Oxycodone Screen Not Detected Urine Methadone Screen Not Detected Urine Fentanyl Screen Not Detected Ur Barbiturates Screen POSITIVE H Ur Phencyclidine Scrn Not Detected Ur Amphetamines Screen Not Detected U Benzodiazepines Scrn POSITIVE H Urine Cocaine Screen Not Detected U Marijuana (THC) Screen Not Detected Ethyl Alcohol Imaging Radiology Impressions: ITS Impressions Cervical Spine CT 04/09/25 08:04 IMPRESSION: No acute fracture or trauma-related listhesis. Multilevel spondylosis, pronounced at C6-7. Fleischner guidelines were followed. Electronically signed by: Ministerio Zepeda MD 04/09/2025 08:35 AM EDT RP Head CT 04/09/25 08:04 IMPRESSION: Unremarkable unenhanced head CT. Electronically signed by: Lexx Mccain MD 04/09/2025 08:30 AM EDT RP Mental Status Exam Mental Status Exam Level of Consciousness: Awake, Appropriate and Alert Patient Behavior: Appropriate and Talkative Affect Description: Calm Speech Pattern: Clear Hallucinations: None Thought Process: Intact Thought Content: positive for Intact Judgement: Good Medications Medications Current Medications Acetaminophen (Acetaminophen 325 Mg Tablet) 650 mg PO Q6H PRN PRN Reason: Pain, Mild 1-3,fever,headache Apixaban (Apixaban 5 Mg Tablet) 5 mg PO BID [facility] Last Admin: 04/10/25 07:49 Dose: 5 mg Atorvastatin Calcium (Atorvastatin Calcium 20 Mg Tablet) 20 mg PO DAILY [facility] Last Admin: 04/10/25 07:50 Dose: 20 mg Calcium Carbonate (Calcium Carbonate 750 Mg Tab.Chew) 750 mg PO Q4H PRN PRN Reason: Heartburn Dextrose (Dextrose 50 % 25 Gm/50 Ml Syringe) 25 gm IVPUSH Q15M PRN; Protocol PRN Reason: per Hypoglycemia Standing Ord. Escitalopram Oxalate (Escitalopram Oxalate 20 Mg Tablet) 20 mg PO DAILY [facility] Last Admin: 04/10/25 07:50 Dose: 20 mg Folic Acid (Folic Acid 1 Mg Tablet) 1 mg PO DAILY [facility] Last Admin: 04/10/25 07:49 Dose: 1 mg Glucose (Glucose Gel 15 Gm Gel..Gram.) 15 gm PO Q15M PRN; Protocol PRN Reason: per Hypoglycemia Standing Ord. Lactated Ringer's (Lr) 1,000 mls @ 125 mls/hr IVCONT .Q8H [facility] Last Admin: 04/10/25 03:47 Dose: 125 mls/hr Insulin Human Lispro (Insulin Lispro 100 Unit/Ml 3 Ml Vial) 0 unit SUBCUT QIDACHS [facility]; Protocol Last Admin: 04/10/25 07:52 Dose: Not Given Lisinopril (Lisinopril 20 Mg Tablet) 20 mg PO DAILY [facility]; Protocol Last Admin: 04/10/25 07:50 Dose: 20 mg Magnesium Hydroxide (Milk Of Magnesia 30 Ml Oral.Susp) 30 ml PO DAILY PRN PRN Reason: Constipation Melatonin (Melatonin 3 Mg Tablet) 6 mg PO BEDTIME PRN PRN Reason: Insomnia Metoprolol Succinate (Metoprolol Succinate Er 100 Mg Tab.Er.24h) 100 mg PO DAILY [facility]; Protocol Last Admin: 04/10/25 07:50 Dose: 100 mg Omeprazole (Omeprazole 40 Mg Capsule.Dr) 40 mg PO DAILY@0630 [facility] Last Admin: 04/10/25 05:55 Dose: Not Given Ondansetron HCl (Ondansetron Hcl 4 Mg/2 Ml Vial) 4 mg IVPUSH Q8H PRN PRN Reason: Nausea and Vomiting Last Admin: 04/09/25 16:23 Dose: 4 mg Pantoprazole Sodium (Pantoprazole Sodium 40 Mg/10 Ml Vial) 40 mg IVPUSH BID@0630,1630 [facility] Last Admin: 04/10/25 05:48 Dose: 40 mg Pharmacy Consult (Consult Rx Etoh Phenob Po Only) 1 each MISCELLANE ONCE PRN; Protocol PRN Reason: Consult order Phenobarbital (Phenobarbital 30 Mg Tablet) 30 mg PO Q4H PRN PRN Reason: Breakthrough alcohol withdrawa Phenobarbital (Phenobarbital 30 Mg Tablet) 60 mg PO BID [facility] Stop: 04/11/25 21:01 Last Admin: 04/10/25 07:50 Dose: 60 mg Phenobarbital (Phenobarbital 30 Mg Tablet) 30 mg PO BID [facility] Stop: 04/13/25 21:01 Phenobarbital (Phenobarbital 30 Mg Tablet) 30 mg PO DAILY [facility] Stop: 04/15/25 09:01 Sodium Chloride (0.9 % Sodium Chloride Flush 3 Ml Syringe) 3 ml IVFLUSH QSHIFT [facility] Last Admin: 04/10/25 07:51 Dose: Not Given Allergies Allergies Allergy/AdvReac Type Severity Reaction Status Date / Time hydroxyzine Allergy Palpitation Verified 04/09/25 06:38 s Iodinated Contrast Media AdvReac Rash Verified 04/09/25 06:38 (Contrast Dye) Assessment & Plan Assessment & Plan (1) Alcohol use disorder, severe, dependence: Status: Acute Code(s): F10.20 - Alcohol dependence, uncomplicated Assessment and Plan: withdrawal sx well managed with phenobarbital at this time continue thiamine and folic acid following discharge Naltrexone to start in AM Patient interested in IOP referral--personal financial representative to follow up and coordinate, as well as CCC appt for continuation of [facility] Total time managing care of this patient today __40__ minutes. PMFSH Past Medical History Medical History Transaminitis Pancreatitis Alcohol dependence Alcohol abuse Social History Social History Household Members: Other Household Members Other:: 2 roomates Housing: House Do you presently have visiting nurse or other home services: No Alcohol intake: current Alcohol intake frequency: 3 or more drinks per day Alcohol type: beer and hard liquor Comment: [place] Patient Tobacco Use Status: Never used Tobacco Advance Directives Date on File: 12/23/24 service: No
[2025-04-10 11:23] LABS: Glucose, Whole Blood 181 mg/dL (60-115)
--- NOTE | 2025-04-10 12:32 | MHC.CM.PN ---
Patient lives in an apartment w/ 2 roommates. Functionally independent. Denies use of DME or services. PCP Artie Grant MD in [place]. He is looking for a PCP in [place]. Brochure provided. Admits that he struggles w/ ETOH use and feels frustrated with it. States he feels ready for an outpatient program. management information systems director aware and will meet with patient. DP: Goal is home self care, lyft transport. CM will continue to follow.
[2025-04-10 15:25] VITALS: BP 118/67; PULSE 74; RESP 18; TEMP 36.4; O2SAT 96
[2025-04-10 16:08] LABS: Glucose, Whole Blood 254 mg/dL (60-115)
[2025-04-10 19:46] VITALS: BP 110/61; PULSE 87; RESP 16; TEMP 36.4; O2SAT 94
[2025-04-10 20:20] LABS: Glucose, Whole Blood 218 mg/dL (60-115)
[2025-04-11] MEDS: Lactated Ringers 1,000 ML 125 ML IVCONT (02:50)
[2025-04-11 03:36] VITALS: BP 124/67; PULSE 75; RESP 18; TEMP 36.6; O2SAT 97
[2025-04-11 06:51] LABS: Alanine Aminotransferase 54 U/L (0-40); Albumin Level 3.5 g/dL (3.5-5.0); Alkaline Phosphatase 73 U/L (39-117); Anion Gap 11 (12-20); Aspartate Amino Transferase 43 U/L (5-37); Blood Urea Nitrogen 10 mg/dL (9-16); Calcium 8.1 mg/dL (8.4-10.2); Carbon Dioxide 25 mmol/L (22-29); Chloride 100 mmol/L (96-108); Creatinine Clr Calc Pharmacy 171.1; Estimated Glomerular Filt Rate > 60; Magnesium 1.4 mg/dL (1.6-2.6); Potassium 3.3 mmol/L (3.3-5.1); Sodium 133 mmol/L (135-145); Total Protein 5.6 g/dL (6.5-8.0)
[2025-04-11 07:41] LABS: Glucose, Whole Blood 161 mg/dL (60-115)
[2025-04-11 08:00] VITALS: BP 124/82; PULSE 80; RESP 16; TEMP 36.7; O2SAT 99
[2025-04-11] MEDS: Metoprolol Succinate ER 100 MG TAB.ER.24H PO (08:56)
--- NOTE | 2025-04-11 11:18 | MHC.CM.PN ---
Per MD rounds patient not medically cleared for dc. CM will continue to follow.
[2025-04-11 11:28] LABS: Glucose, Whole Blood 246 mg/dL (60-115)
--- NOTE | 2025-04-11 12:31 | MHC.RECOVRN ---
Late entry: (tw met w/ pt 04/10/25 @ 0820) Patient had a positive screen for unhealthy alcohol use on admission, subsequently, met with the patient to discuss current alcohol use and concerns related to increased risk of alcohol related problems. On approach pt was sitting in bed watching TV, in no apparent distress. He denies withdrawal symptoms at this time. TW reports consuming vodka pretty regularly Pt reports previously attending and having a sponsor. I'm not really sure why I stopped. Probably because I move around so much . Pt encouraged to return to AA if he found it helpful and to also seek options for zoom meetings due to his frequency of travel for work. Pt also provided information on multiple pathways to recovery. Discussed how alcohol use has impacted health, including negative impact on mental health and overall physical well being. Discussed risk and reduction strategies including drinking below the recommended limit. Provided pt with written resources including information on inpatient and outpatient treatment, [facility], harm reduction and recovery coaching. Patient initiated on Naltrexone for AUD and appt made at [facility] for intake, 04/17/25 @ 3:45pm. Information added to discharge paperwork. Pt was provided with TW?s contact information if questions or concerns arise. Pt denies further questions or concerns at this time.
[2025-04-11 15:27] VITALS: BP 116/59; PULSE 75; RESP 18; TEMP 36.6; O2SAT 95
[2025-04-11 16:37] LABS: Glucose, Whole Blood 213 mg/dL (60-115)
--- NOTE | 2025-04-11 17:00 | P.PNIM_ITS ---
Subjective Subjective Date of Service: 04/11/25 Interval History: No new issues from yesterday Endorses good appetite and hunger. Still having some tremulousness today. No confusion, diaphoresis. Review of Systems Review of Systems: Yes all other systems are reviewed and are negative Constitutional Constitutional: Denies as per HPI, Denies no additional constitutional complaints, Denies anorexia, Denies body ache(s), Denies chills, Denies daytime sleepiness, Denies difficulty sleeping, Denies excessive sweating, Denies fatigue, Denies fever(s), Denies frequent falls, Denies headache(s), Denies increased appetite, Denies lethargy, Denies malaise, Denies night sweats, Denies poor appetite, Denies snoring, Denies stops breathing during sleep, Denies weakness, Denies weight gain, Denies weight loss and Denies other ENT Ears, Nose, Mouth, and Throat: Denies headache(s) Respiratory Respiratory: Denies snoring Neurologic Neurologic: Denies frequent falls, Denies headache(s) and Denies weakness Endocrine Endocrine: Denies excessive sweating and Denies fatigue Physical Exam 2 Exam: Exam: General: A&O x3, oriented to time place person and situation, comfortable, no pain. Diaphoretic. Cardiac: S1, S2 auscultated with no S3/4, no MRG. Well perfused. Respiratory: Normal breath sounds auscultated throughout all lung zones, without wheezing, rales. Normal rate. GI/ : No abdominal pain on palpation, no masses or distentions. MSK: Normal ambulation without pain at bony prominences or musculature Neurological: Normal neurological examination on overview, without obvious CN II-XII abnormalities. Intention tremor noted. No nystagmus Psychological: No visual or auditory hallucinations. No HI/SI Vital Signs: Vital Signs: Last Vital Signs Temp 97.9 F 04/11/25 15:27 Pulse 75 04/11/25 15:27 Resp 18 04/11/25 15:27 BP 116/59 L 04/11/25 15:27 Pulse Ox 95 04/11/25 15:27 O2 Del Method Room Air 04/11/25 15:27 BMI result Body Mass Index 32.5 Objective Data Active Medications Acetaminophen (Acetaminophen 325 Mg Tablet) 650 mg PO Q6H PRN PRN Reason: Pain, Mild 1-3,fever,headache Apixaban (Apixaban 5 Mg Tablet) 5 mg PO BID [facility] Last Admin: 04/11/25 08:56 Dose: 5 mg Documented By: JUSTO Atorvastatin Calcium (Atorvastatin Calcium 20 Mg Tablet) 20 mg PO DAILY [facility] Last Admin: 04/11/25 08:56 Dose: 20 mg Documented By: JUSTO Calcium Carbonate (Calcium Carbonate 750 Mg Tab.Chew) 750 mg PO Q4H PRN PRN Reason: Heartburn Dextrose (Dextrose 50 % 25 Gm/50 Ml Syringe) 25 gm IVPUSH Q15M PRN; Protocol PRN Reason: per Hypoglycemia Standing Ord. Escitalopram Oxalate (Escitalopram Oxalate 20 Mg Tablet) 20 mg PO DAILY [facility] Last Admin: 04/11/25 08:56 Dose: 20 mg Documented By: JUSTO Folic Acid (Folic Acid 1 Mg Tablet) 1 mg PO DAILY [facility] Last Admin: 04/11/25 08:58 Dose: 1 mg Documented By: JUSTO Glucose (Glucose Gel 15 Gm Gel..Gram.) 15 gm PO Q15M PRN; Protocol PRN Reason: per Hypoglycemia Standing Ord. Insulin Human Lispro (Insulin Lispro 100 Unit/Ml 3 Ml Vial) 0 unit SUBCUT QIDACHS [facility]; Protocol Last Admin: 04/11/25 16:57 Dose: 4 unit Documented By: JUSTO Lisinopril (Lisinopril 20 Mg Tablet) 20 mg PO DAILY [facility]; Protocol Last Admin: 04/11/25 08:56 Dose: 20 mg Documented By: JUSTO Magnesium Hydroxide (Milk Of Magnesia 30 Ml Oral.Susp) 30 ml PO DAILY PRN PRN Reason: Constipation Melatonin (Melatonin 3 Mg Tablet) 6 mg PO BEDTIME PRN PRN Reason: Insomnia Metoprolol Succinate (Metoprolol Succinate Er 100 Mg Tab.Er.24h) 100 mg PO DAILY [facility]; Protocol Last Admin: 04/11/25 08:56 Dose: 100 mg Documented By: JUSTO Naltrexone HCl (Naltrexone Hcl 50 Mg Tablet) 50 mg PO DAILY [facility] Last Admin: 04/11/25 08:55 Dose: 50 mg Documented By: JUSTO Omeprazole (Omeprazole 40 Mg Capsule.) 40 mg PO DAILY@0630 [facility] Last Admin: 04/11/25 05:28 Dose: 40 mg Documented By: [email or web address] Ondansetron HCl (Ondansetron Hcl 4 Mg/2 Ml Vial) 4 mg IVPUSH Q8H PRN PRN Reason: Nausea and Vomiting Last Admin: 04/09/25 16:23 Dose: 4 mg Documented By: SHARI Pantoprazole Sodium (Pantoprazole Sodium 40 Mg/10 Ml Vial) 40 mg IVPUSH BID@0630,1630 [facility] Last Admin: 04/11/25 16:57 Dose: 40 mg Documented By: JUSTO Pharmacy Consult (Consult Rx Etoh Phenob Po Only) 1 each MISCELLANE ONCE PRN; Protocol PRN Reason: Consult order Phenobarbital (Phenobarbital 30 Mg Tablet) 30 mg PO Q4H PRN PRN Reason: Breakthrough alcohol withdrawa Phenobarbital (Phenobarbital 30 Mg Tablet) 60 mg PO BID [facility] Stop: 04/11/25 21:01 Last Admin: 04/11/25 08:55 Dose: 60 mg Documented By: JUSTO Phenobarbital (Phenobarbital 30 Mg Tablet) 30 mg PO BID [facility] Stop: 04/13/25 21:01 Phenobarbital (Phenobarbital 30 Mg Tablet) 30 mg PO DAILY [facility] Stop: 04/15/25 09:01 Sodium Chloride (0.9 % Sodium Chloride Flush 3 Ml Syringe) 3 ml IVFLUSH QSHIFT [facility] Last Admin: 04/11/25 16:22 Dose: Not Given Documented By: JUSTO Non-Admin Reason: Previously Administered Labs 04/10/25 05:38 04/11/25 05:37 Labs: Laboratory Results - last 24 hr 04/10/25 04/11/25 04/11/25 20:05 05:37 07:36 Hold Purple Top SEE NOTE Anion Gap 11 L Estim Creat Clear Calc 171.1 Estimated GFR > 60 POC Glucose 218 H 161 H Random Glucose 175 H Calcium 8.1 L Magnesium 1.4 L* Total Bilirubin 2.7 H AST 43 H ALT 54 H Alkaline Phosphatase 73 Total Protein 5.6 L Albumin 3.5 04/11/25 04/11/25 11:24 16:32 Hold Purple Top Anion Gap Estim Creat Clear Calc Estimated GFR POC Glucose 246 H 213 H Random Glucose Calcium Magnesium Total Bilirubin AST ALT Alkaline Phosphatase Total Protein Albumin Assessment and Plan (1) MDD (major depressive disorder): Status: Acute (2) Alcohol abuse: Status: Acute (3) Alcohol dependence: Status: Acute (4) Alcohol use with withdrawal: Status: Acute (5) Delirium tremens: Status: Acute (6) Alcohol use disorder, severe, dependence: Status: Acute (7) Benign essential HTN: Status: Acute (8) Hyperlipidemia: Status: Acute (9) Transaminitis: Status: Acute (10) Hypomagnesemia: Status: Acute (11) Dehydration: Status: Acute (12) Acute hypokalemia: Status: Acute Plan 49-year-old male, with a background history of HTN, HLD, T2 DM, GERD, AFib not on anticoagulation, presents to hospital by EMS after found hallucinating on the side of the road, admitted for acute alcohol intoxication with developing ETOH withdrawal with delirium tremens. Delirium tremens ETOH withdrawal ETOH abuse Patient acutely intoxicated on admission, with elevated ethyl alcohol level and urine. Physical examination consistent with delirium tremens and ETOH withdrawal. Lab work reassuring for normal electrolytes at this time, however we will be monitoring over the next couple of days. We will admit for early withdrawal. PLAN - phenobarbital protocol - CIWA - thiamine 100 mg OD p.o. - folic acid 1 mg OD p.o. - monitor electrolytes closely - addiction Medicine Services to be consulted - cardiac telemetry - encourage p.o. intake and fluid intake - omeprazole 40mg OD PO Hypovolemic hyponatremia Dehydration Poor p.o. intake PLAN - IV able to be initiated - monitor electrolytes closely Alcoholic hepatitis Hyperbilirubinemia AST ALT elevated, with mild hyperbilirubinemia. The patient was recently admitted on the 06 of April, with higher levels as compared to today. Bilirubin and AST/ALT ratio was happened improving gradually compared to the 06 of April. PLAN - right upper quadrant ultrasonography - hepatitis-C testing - trend LFTs Paroxysmal atrial fibrillation Patient is currently in normal sinus rhythm. ECG to be performed for clarification. He will require cardiac telemetry. Patient reports a history of atrial fibrillation in the past, and is not on anticoagulation-is unable to clarify why. [id number] Score: 2 (HTN/T2 DM) Impression: Holiday heart syndrome PLAN - cardiac telemetry discontinued - apixaban 5 mg b.i.d. p.o. - echocardiography - correct electrolyte abnormalities CHRONIC MEDICAL ISSUES HTN: Lisinopril 20 mg OD p.o., metoprolol 100 mg OD p.o. HLD: Continue atorvastatin 20 mg OD p.o. MDD: Continue escitalopram 20 mg OD p.o. T2 DM: POC glucose, insulin sliding scale. Noncompliant QUALITY METRICS - VTE: Apixaban 5 mg b.i.d. p.o. - CODE STATUS: Full code - DIET: Regular Total time managing care of this patient today: 35 minutes. Quality Stroke Does the patient have a stroke diagnosis?: No VTE Prior VTE?: No VTE Risk Level:: Medical - moderate - high VTE Device Contraindication: Treatment Not Indicated VTE Drug Contraindication: N/A - Med Ordered
[2025-04-11 19:59] VITALS: BP 141/62; PULSE 71; RESP 18; TEMP 36.6; O2SAT 96
[2025-04-11 20:31] LABS: Glucose, Whole Blood 216 mg/dL (60-115)
[2025-04-11] MEDS: 0.9 % Sodium Chloride Flush 3 ML SYRINGE IVFLUSH (21:09)
[2025-04-12 03:12] VITALS: BP 141/80; PULSE 72; RESP 19; TEMP 36.3; O2SAT 98
[2025-04-12 06:50] LABS: Alanine Aminotransferase 64 U/L (0-40); Albumin Level 3.6 g/dL (3.5-5.0); Alkaline Phosphatase 73 U/L (39-117); Anion Gap 11 (12-20); Aspartate Amino Transferase 74 U/L (5-37); Blood Urea Nitrogen 6 mg/dL (9-16); Calcium 8.5 mg/dL (8.4-10.2); Carbon Dioxide 27 mmol/L (22-29); Chloride 102 mmol/L (96-108); Creatinine Clr Calc Pharmacy 151.1; Estimated Glomerular Filt Rate > 60; Magnesium 1.3 mg/dL (1.6-2.6); Potassium 4.1 mmol/L (3.3-5.1); Sodium 136 mmol/L (135-145); Total Protein 5.9 g/dL (6.5-8.0)
[2025-04-12 08:00] VITALS: BP 140/71; PULSE 70; RESP 20; TEMP 36.1; O2SAT 98
[2025-04-12 08:00] LABS: Glucose, Whole Blood 180 mg/dL (60-115)
[2025-04-12] MEDS: Metoprolol Succinate ER 100 MG TAB.ER.24H PO (08:13)
[2025-04-12] MEDS: Magnesium Sulfate/H2O 2 GM/50 ML PIGGYBACK IV (08:14)
[2025-04-12] MEDS: 0.9 % Sodium Chloride Flush 3 ML SYRINGE IVFLUSH ×3 (08:15→21:11)
[2025-04-12 10:57] LABS: Glucose, Whole Blood 244 mg/dL (60-115)
--- NOTE | 2025-04-12 11:51 | MHC.RECOVRN ---
T/W met with pt. in to f/u and offer support around signing up for [facility]. Pt accepted assistance so we called together. Approx 5 minutes into the conversation with [facility] pt. became increasingly agitated and overwhelmed with multiple events happening at once (he was meeting with me, lunch arrived, nurse came in to give meds). He then proceeded to tell the sustainable design coordinator at [facility] I am not going to follow through with this anyways so lets just forget it . Pt ended call with [facility]. T/W explained to pt. I was there to support and help facilitate services based on the information I received and not to force anything. Pt kept referring to it's all about the money . I ended the visit and let pt. know if he had any further needs he could have his nurse call us. Report was given to his nurse Corrina. [facility] services available PRN.
--- NOTE | 2025-04-12 13:39 | P.PNIM_ITS ---
Subjective Subjective Date of Service: 04/12/25 Interval History: Remains on phenobarbital taper No tremulousness today, nystagmus, diaphoresis sweating. Denies visual or auditory hallucinations. Patient feeling well. Appetite good. Review of Systems Review of Systems: Yes all other systems are reviewed and are negative Physical Exam 2 Exam: Exam: General: A&O x3, oriented to time place person and situation, comfortable, no pain. Diaphoretic. Cardiac: S1, S2 auscultated with no S3/4, no MRG. Well perfused. Respiratory: Normal breath sounds auscultated throughout all lung zones, without wheezing, rales. Normal rate. GI/ : No abdominal pain on palpation, no masses or distentions. MSK: Normal ambulation without pain at bony prominences or musculature Neurological: Normal neurological examination on overview, without obvious CN II-XII abnormalities. Intention tremor noted. No nystagmus Psychological: No visual or auditory hallucinations. No HI/SI Vital Signs: Vital Signs: Last Vital Signs Temp 97.0 F 04/12/25 08:00 Pulse 70 04/12/25 08:00 Resp 20 04/12/25 08:00 BP 140/71 H 04/12/25 08:00 Pulse Ox 98 04/12/25 08:00 O2 Del Method Room Air 04/12/25 08:00 BMI result Body Mass Index 32.5 Objective Data Active Medications Acetaminophen (Acetaminophen 325 Mg Tablet) 650 mg PO Q6H PRN PRN Reason: Pain, Mild 1-3,fever,headache Last Admin: 04/12/25 08:14 Dose: 650 mg Documented By: KHURRAM Apixaban (Apixaban 5 Mg Tablet) 5 mg PO BID [facility] Last Admin: 04/12/25 08:13 Dose: 5 mg Documented By: KHURRAM Atorvastatin Calcium (Atorvastatin Calcium 20 Mg Tablet) 20 mg PO DAILY [facility] Last Admin: 04/12/25 08:13 Dose: 20 mg Documented By: KHURRAM Calcium Carbonate (Calcium Carbonate 750 Mg Tab.Chew) 750 mg PO Q4H PRN PRN Reason: Heartburn Dextrose (Dextrose 50 % 25 Gm/50 Ml Syringe) 25 gm IVPUSH Q15M PRN; Protocol PRN Reason: per Hypoglycemia Standing Ord. Escitalopram Oxalate (Escitalopram Oxalate 20 Mg Tablet) 20 mg PO DAILY [facility] Last Admin: 04/12/25 08:14 Dose: 20 mg Documented By: KHURRAM Folic Acid (Folic Acid 1 Mg Tablet) 1 mg PO DAILY [facility] Last Admin: 04/12/25 08:14 Dose: 1 mg Documented By: KHURRAM Glucose (Glucose Gel 15 Gm Gel..Gram.) 15 gm PO Q15M PRN; Protocol PRN Reason: per Hypoglycemia Standing Ord. Insulin Human Lispro (Insulin Lispro 100 Unit/Ml 3 Ml Vial) 0 unit SUBCUT QIDACHS [facility]; Protocol Last Admin: 04/12/25 11:39 Dose: 4 unit Documented By: KHURRAM Lisinopril (Lisinopril 20 Mg Tablet) 20 mg PO DAILY [facility]; Protocol Last Admin: 04/12/25 08:13 Dose: 20 mg Documented By: KHURRAM Magnesium Hydroxide (Milk Of Magnesia 30 Ml Oral.Susp) 30 ml PO DAILY PRN PRN Reason: Constipation Melatonin (Melatonin 3 Mg Tablet) 6 mg PO BEDTIME PRN PRN Reason: Insomnia Metoprolol Succinate (Metoprolol Succinate Er 100 Mg Tab.Er.24h) 100 mg PO DAILY [facility]; Protocol Last Admin: 04/12/25 08:13 Dose: 100 mg Documented By: KHURRAM Naltrexone HCl (Naltrexone Hcl 50 Mg Tablet) 50 mg PO DAILY [facility] Last Admin: 04/12/25 08:13 Dose: 50 mg Documented By: KHURRAM Omeprazole (Omeprazole 40 Mg Capsule.Dr) 40 mg PO DAILY@0630 [facility] Last Admin: 04/12/25 05:13 Dose: 40 mg Documented By: AUTUMN Ondansetron HCl (Ondansetron Hcl 4 Mg/2 Ml Vial) 4 mg IVPUSH Q8H PRN PRN Reason: Nausea and Vomiting Last Admin: 04/09/25 16:23 Dose: 4 mg Documented By: SHARI Pharmacy Consult (Consult Rx Etoh Phenob Po Only) 1 each MISCELLANE ONCE PRN; Protocol PRN Reason: Consult order Phenobarbital (Phenobarbital 30 Mg Tablet) 30 mg PO Q4H PRN PRN Reason: Breakthrough alcohol withdrawa Phenobarbital (Phenobarbital 30 Mg Tablet) 30 mg PO BID [facility] Stop: 04/13/25 21:01 Last Admin: 04/12/25 08:13 Dose: 30 mg Documented By: KHURRAM Phenobarbital (Phenobarbital 30 Mg Tablet) 30 mg PO DAILY [facility] Stop: 04/15/25 09:01 Sodium Chloride (0.9 % Sodium Chloride Flush 3 Ml Syringe) 3 ml IVFLUSH QSHIFT [facility] Last Admin: 04/12/25 08:15 Dose: 3 ml Documented By: KHURRAM Labs 04/10/25 05:38 04/12/25 06:07 Labs: Laboratory Results - last 24 hr 04/11/25 04/11/25 04/12/25 16:32 20:25 06:07 Hold Purple Top SEE NOTE Anion Gap 11 L Estim Creat Clear Calc 151.1 Estimated GFR > 60 POC Glucose 213 H 216 H Random Glucose 195 H Calcium 8.5 Magnesium 1.3 L* Total Bilirubin 1.6 H AST 74 H ALT 64 H Alkaline Phosphatase 73 Total Protein 5.9 L Albumin 3.6 04/12/25 04/12/25 07:52 10:53 Hold Purple Top Anion Gap Estim Creat Clear Calc Estimated GFR POC Glucose 180 H 244 H Random Glucose Calcium Magnesium Total Bilirubin AST ALT Alkaline Phosphatase Total Protein Albumin Assessment and Plan (1) MDD (major depressive disorder): Status: Acute (2) Alcohol abuse: Status: Acute (3) Alcohol dependence: Status: Acute (4) Alcohol use with withdrawal: Status: Acute (5) Delirium tremens: Status: Acute (6) Alcohol use disorder, severe, dependence: Status: Acute (7) Benign essential HTN: Status: Acute (8) Paroxysmal atrial fibrillation: Status: Acute (9) Transaminitis: Status: Acute (10) Acute hypokalemia: Status: Acute (11) Hypomagnesemia: Status: Acute (12) Dehydration: Status: Acute (13) Hyperlipidemia: Status: Acute Plan 49-year-old male, with a background history of HTN, HLD, T2 DM, GERD, AFib not on anticoagulation, presents to hospital by EMS after found hallucinating on the side of the road, admitted for acute alcohol intoxication with developing ETOH withdrawal with delirium tremens. Delirium tremens ETOH withdrawal ETOH abuse Patient acutely intoxicated on admission, with elevated ethyl alcohol level and urine. Physical examination consistent with delirium tremens and ETOH withdrawal. Lab work reassuring for normal electrolytes at this time, however we will be monitoring over the next couple of days. Admitted for withdrawal with evidence of DTs. Currently on last day of phenobarbital taper. PLAN - phenobarbital protocol - CIWA - thiamine 100 mg OD p.o. - folic acid 1 mg OD p.o. - monitor electrolytes closely - addiction Medicine Services consulted - cardiac telemetry - encourage p.o. intake and fluid intake - omeprazole 40mg OD PO - Naltrexone Hypovolemic hyponatremia Dehydration Poor p.o. intake Resolved. Alcoholic hepatitis Hyperbilirubinemia AST ALT elevated, with mild hyperbilirubinemia. The patient was recently admitted on the 06 of April, with higher levels as compared to today. Bilirubin and AST/ALT ratio was happened improving gradually compared to the 06 of April. Improving LFTs. No evidence of cirrhosis on ultrasound Paroxysmal atrial fibrillation Patient is currently in normal sinus rhythm. ECG to be performed for clarification. He will require cardiac telemetry. Patient reports a history of atrial fibrillation in the past, and is not on anticoagulation-is unable to clarify why. [id number] Score: 2 (HTN/T2 DM) Impression: Holiday heart syndrome PLAN - apixaban 5 mg b.i.d. p.o. - echocardiography - correct electrolyte abnormalities CHRONIC MEDICAL ISSUES HTN: Lisinopril 20 mg OD p.o., metoprolol 100 mg OD p.o. HLD: Continue atorvastatin 20 mg OD p.o. MDD: Continue escitalopram 20 mg OD p.o. T2 DM: POC glucose, insulin sliding scale. Noncompliant QUALITY METRICS - VTE: Apixaban 5 mg b.i.d. p.o. - CODE STATUS: Full code - DIET: Regular Total time managing care of this patient today: 35 minutes. Quality Stroke Does the patient have a stroke diagnosis?: No VTE Prior VTE?: No VTE Risk Level:: Medical - moderate - high VTE Device Contraindication: Treatment Not Indicated VTE Drug Contraindication: N/A - Med Ordered
[2025-04-12 15:07] VITALS: BP 126/78; PULSE 67; RESP 18; TEMP 36.4; O2SAT 98
[2025-04-12 16:05] LABS: Glucose, Whole Blood 148 mg/dL (60-115)
[2025-04-12 19:30] VITALS: BP 120/75; PULSE 74; RESP 18; TEMP 36.7; O2SAT 96
[2025-04-12 19:38] LABS: Glucose, Whole Blood 207 mg/dL (60-115)
[2025-04-13 07:34] LABS: Glucose, Whole Blood 192 mg/dL (60-115)
[2025-04-13 07:42] VITALS: BP 139/86
[2025-04-13 07:43] VITALS: BP 139/86
[2025-04-13] MEDS: Metoprolol Succinate ER 100 MG TAB.ER.24H PO (07:43)
[2025-04-13] MEDS: 0.9 % Sodium Chloride Flush 3 ML SYRINGE IVFLUSH (07:43)
[2025-04-13 07:53] LABS: Albumin Level 3.7 g/dL (3.5-5.0); Alkaline Phosphatase 74 U/L (39-117); Anion Gap 13 (12-20); Aspartate Amino Transferase 113 U/L (5-37); Blood Urea Nitrogen 5 mg/dL (9-16); Calcium 8.7 mg/dL (8.4-10.2); Carbon Dioxide 27 mmol/L (22-29); Chloride 102 mmol/L (96-108); Creatinine Clr Calc Pharmacy 155.1; Estimated Glomerular Filt Rate > 60; Magnesium 1.5 mg/dL (1.6-2.6); Potassium 3.7 mmol/L (3.3-5.1); Sodium 138 mmol/L (135-145); Total Protein 6.2 g/dL (6.5-8.0)
[2025-04-13 07:55] VITALS: BP 139/86; PULSE 68; RESP 18; TEMP 36.1; O2SAT 100
[2025-04-13 08:06] LABS: Alanine Aminotransferase 88 U/L (0-40)
--- NOTE | 2025-04-13 10:47 | PM.DS ---
DS: Providers Provider Date of Service: 04/13/25 Date of admission: 04/09/25 14:31 Date of discharge: 04/13/25 Primary care physician: Unknown Physician Consults: 04/09/25 22:18 Addiction Medicine Provider Routine Consulting Provider: Uyen Covering Reason for consultation: ETOH drinks 20 nips daily 04/11/25 12:06 Consult to Comprehensive Care Routine Consulting Provider: [facility] Center DS: Diagnosis Discharge Diagnosis (1) MDD (major depressive disorder): Status: Acute (2) Alcohol abuse: Status: Acute (3) Alcohol dependence: Status: Acute (4) Alcohol use with withdrawal: Status: Acute (5) Delirium tremens: Status: Acute (6) Alcohol use disorder, severe, dependence: Status: Acute (7) Benign essential HTN: Status: Acute (8) Paroxysmal atrial fibrillation: Status: Acute (9) Transaminitis: Status: Acute (10) Acute hypokalemia: Status: Acute (11) Hypomagnesemia: Status: Acute (12) Dehydration: Status: Acute (13) Hyperlipidemia: Status: Acute DS: Summary Hospital Course Hospital Course: 49-year-old male, with a background history of HTN, HLD, T2 DM, GERD, AFib not on anticoagulation, presents to hospital by EMS after found hallucinating on the side of the road, admitted for acute alcohol intoxication with developing ETOH withdrawal with delirium tremens. PRESENTATION During my interview with the patient, he reports that he self-called a wellness check on himself because he was intoxicated and would require some assistance. As per ED note, the patient was found on the side of the road hallucinating, by EMS - suffered a fall-placed in a C-collar, and transported to hospital. Patient reports that for the past 10-14 days, he has been drinking 20 units of alcohol per day. He endorses for the past 3 days he has been experiencing nausea and vomiting, and for the past 1 day, has been unable to keep any food or water down (vomiting). He does not endorse abdominal pain. He does endorse ?shakes ? Endorses visual and auditory hallucinations. He denies any melena or hematochezia, hematemesis, bleeding diathesis, ecchymosis. He denies rashes on the body, fevers, chills or rigors. Denies chest pain retrosternal discomfort, dyspnea, diaphoresis, palpitations. On evaluation, the patient is alert and oriented to person place time and situation - it is questionable, however if the patient has a reliable historian at this time. ED COURSE Noted to be tremulous on evaluation in the emergency room, with agitation. Blood work revealing borderline hypernatremia 146, creatinine 0.79, no other electrolyte abnormalities. POC glucose 335. Elevated AST and ALT of 83/104, with a total bilirubin of 1.1. Patient has elevated ethyl alcohol level of 328. Patient was placed in [id number]-[id number] was not tolerated-this was removed by the emergency room. CT head and CT cervical spine unremarkable for acute intracranial injury. Received ondansetron and 10 mg IV diazepam by the emergency room. Started on normal saline bolus 1 L. Admission placed to Internal Medicine Service. PROBLEM LIST Delirium tremens ETOH withdrawal ETOH abuse Patient acutely intoxicated on admission, with elevated ethyl alcohol level and urine. Physical examination consistent with delirium tremens and ETOH withdrawal. Lab work reassuring for normal electrolytes at this time, however we will be monitoring over the next couple of days. Admitted for withdrawal with evidence of DTs. Completed phenobarbital taper without issues. RECOMMENDATIONS: - thiamine 100 mg OD p.o. - folic acid 1 mg OD p.o. - addiction Medicine Services follow up outpatient - omeprazole 40mg OD PO - Naltrexone Hypovolemic hyponatremia Dehydration Poor p.o. intake Resolved with IVF and encouragement of p.o. intake Alcoholic hepatitis Hyperbilirubinemia AST ALT elevated, with mild hyperbilirubinemia. The patient was recently admitted on the 06 of April, with higher levels as compared to today. Bilirubin and AST/ALT ratio was happened improving gradually compared to the 06 of April. Improving LFTs. No evidence of cirrhosis on ultrasound Paroxysmal atrial fibrillation Patient is currently in normal sinus rhythm. ECG to be performed for clarification. He will require cardiac telemetry. Patient reports a history of atrial fibrillation in the past, and is not on anticoagulation-is unable to clarify why. [id number] Score: 2 (HTN/T2 DM) Impression: Holiday heart syndrome RECOMMENDATIONS - apixaban 5 mg b.i.d. p.o. - follow up with PCP within 1 week of discharge for evaluation of discontinuation of anticoagulation Status at Discharge Cognitive/behavioral status at discharge: Alert and oriented to person place time and situation Functional status at discharge: independent ambulation Overall status at discharge: patient is back to baseline Time Attestation Total time managing care of this patient today: 45 mintues. Discharge Coordination Time (in mins): 15 Quality: Safe Use of Opioids Does Pt have an Active Cancer Diagnosis on the Problem List?: No Quality: Stroke Does the patient have a stroke diagnosis?: No Physical Exam Exam: Exam: General: A&O x3, oriented to time place person and situation, comfortable, no pain Cardiac: S1, S2 auscultated with no S3/4, no MRG. Well perfused. Respiratory: Normal breath sounds auscultated throughout all lung zones, without wheezing, rales. Normal rate. GI/ : No abdominal pain on palpation, no masses or distentions. MSK: Normal ambulation without pain at bony prominences or musculature Neurological: Normal neurological examination on overview, without obvious CN II-XII abnormalities. Vital Signs: Vital Signs: Last Vital Signs Temp 97.0 F 04/13/25 07:55 Pulse 68 04/13/25 07:55 Resp 18 04/13/25 07:55 BP 139/86 04/13/25 07:55 Pulse Ox 100 04/13/25 07:55 O2 Del Method Room Air 04/13/25 07:55 BMI result Body Mass Index 32.5 DS: Data Data Completed and Pending Completed studies during hospitalization [Text1]: Procedures Detoxification Services for Substance Abuse Treatment (12/19/24) Labs on day of discharge: Laboratory Results - last 24 hr 04/12/25 04/12/25 04/12/25 10:53 15:55 19:32 Hold Purple Top Sodium Potassium Chloride Carbon Dioxide Anion Gap BUN Creatinine Estim Creat Clear Calc Estimated GFR POC Glucose 244 H 148 H 207 H Random Glucose Calcium Magnesium Total Bilirubin AST ALT Alkaline Phosphatase Total Protein Albumin 04/13/25 04/13/25 05:58 07:19 Hold Purple Top SEE NOTE Sodium 138 Potassium 3.7 Chloride 102 Carbon Dioxide 27 Anion Gap 13 BUN 5 L Creatinine 0.75 Estim Creat Clear Calc 155.1 Estimated GFR > 60 POC Glucose 192 H Random Glucose 179 H Calcium 8.7 Magnesium 1.5 L Total Bilirubin 1.3 H AST 113 H ALT 88 H Alkaline Phosphatase 74 Total Protein 6.2 L Albumin 3.7 Discharge Plan Discharge Anticipated Discharge Date/Time: 04/13/25 10:49 Patient Disposition: Home, Self-Care Discharge Diagnosis: Acute alcohol intoxication, with withdrawal, and delirium tremens, with multiple electrolyte abnormalities Referrals: [facility] [Provider Group] - 04/17/25 3:45 pm Referral Note: This is an intake appt to continue Naltrexone. Please bring photo ID and insurance card if available. If you can not keep this appointment, please call the office to reschedule Physician,Unknown J [Primary Care Provider, Medical] - 1 Week Discharge Medications: New naltrexone 50 mg tablet 50 mg PO DAILY Qty: 30 0RF naltrexone 50 mg Tablet 50 mg PO DAILY 30 Days Qty: 30 0RF Eliquis 5 mg Tablet 5 mg PO BID 30 Days Qty: 60 0RF Continued loratadine 10 mg Tablet 10 mg PO DAILY omeprazole magnesium [Prilosec OTC] 20 mg Tablet,Delayed Release (Dr/Ec) 20 mg PO DAILY@0630 fluticasone propion-salmeterol 250-50 mcg/dose blister with device 1 ea inhalation BID atorvastatin 20 mg tablet 20 mg PO DAILY lisinopril 20 mg tablet 20 mg PO DAILY metoprolol succinate 100 mg tablet extended release 24 hr 100 mg PO DAILY albuterol sulfate 90 mcg/actuation HFA aerosol inhaler 2 inh inhalation Q6H PRN (Reason: Shortness Of Breath Or Wheezing) escitalopram oxalate 20 mg tablet 20 mg PO DAILY insulin glargine [Basaglar KwikPen U-100 Insulin] 100 unit/mL (3 mL) insulin pen 35 unit subcut DAILY Discharge Orders: Discharge Order (Routine); Ordered 04/13/25 Ordered By: Marli Duvall Diet: Advance to usual diet Activity on Discharge: As tolerated Stand Alone Forms: Patient Portal Discharge page Print Language: Slovenian Care Plan Goals: As above Health Concerns: As above Plan of Treatment: Continue naltrexone Continue apixaban Follow up with PCP within 1 week of discharge to determine continuation of apixaban & naltrexone Assessment: Hemodynamically stable on discharge. Has successfully withdrawn off ETOH safely
[2025-04-13 11:25] VITALS: BP 135/87; PULSE 67; RESP 18; TEMP 36.3; O2SAT 98
== END 2025-04-13 11:32 | disposition home or self-care (01) | DRG 897 ==
LOC: HO.ED 08:10 → HO.EDOVER 14:43 → HO.S3 19:34
PROVIDERS: Nurse Practitioner Family; Admitting Provider Nurse Practitioner Acute Care; Emergency Provider Emergency Medicine; Visit Provider Hospitalist
DX: F10.231 Alcohol dependence with withdrawal delirium (principal); F33.1 Major depressive disorder, recurrent, moderate; E87.0 Hyperosmolality and hypernatremia; E87.1 Hypo-osmolality and hyponatremia; Y90.8 Blood alcohol level of 240 mg/100 ml or more; K70.10 Alcoholic hepatitis without ascites; E11.9 Type 2 diabetes mellitus without complications; I10 Essential (primary) hypertension; F10.229 Alcohol dependence with intoxication, unspecified; E78.2 Mixed hyperlipidemia; E86.1 Hypovolemia; E86.0 Dehydration; I48.0 Paroxysmal atrial fibrillation; Z79.4 Long term (current) use of insulin; Z79.01 Long term (current) use of anticoagulants; Z79.899 Other long term (current) drug therapy
CPT/HCPCS: 36415; 70450; 72125; 76705; 80053; 80307; 81001; 82947; 83690; 83735; 84443; 85025; 90656; 93306; 99285; J0737; J2405; J2470; J3360; J3411; J3475; J7120; Q9957; S9485

== ENCOUNTER → 2025-04-09 06:55 | Outpatient (BNV) | payer OTHER, SELFPAY | PROVIDERS: Emergency Provider Emergency Medicine; Visit Provider Radiology Diagnostic Radiology | DX: Z04.3 Encounter for examination and observation following other accident (principal); M47.812 Spondylosis without myelopathy or radiculopathy, cervical region; F10.20 Alcohol dependence, uncomplicated; W19.XXXA Unspecified fall, initial encounter | CPT/HCPCS: 70450; 72125 ==

== ENCOUNTER 2025-04-09 14:31 | Outpatient (BNV) | payer OTHER, SELFPAY | END 2025-04-10 07:00 | PROVIDERS: Admitting Provider Nurse Practitioner Acute Care; Emergency Provider Emergency Medicine; Visit Provider Internal Medicine | DX: I48.91 Unspecified atrial fibrillation (principal); F10.10 Alcohol abuse, uncomplicated | CPT/HCPCS: 93306 ==

== ENCOUNTER 2025-04-09 14:31 | Outpatient (BNV) | payer OTHER, SELFPAY | END 2025-04-10 11:53 | PROVIDERS: Admitting Provider Nurse Practitioner Acute Care; Emergency Provider Emergency Medicine; Visit Provider Radiology Diagnostic Radiology | DX: K76.89 Other specified diseases of liver (principal) | CPT/HCPCS: 76705 ==

== ENCOUNTER → 2025-04-09 14:31 | Outpatient (BNV) | payer OTHER, SELFPAY | PROVIDERS: Admitting Provider Nurse Practitioner Acute Care; Emergency Provider Emergency Medicine; Visit Provider Hospitalist | DX: I48.0 Paroxysmal atrial fibrillation (principal); F33.1 Major depressive disorder, recurrent, moderate; F10.20 Alcohol dependence, uncomplicated; I10 Essential (primary) hypertension; R74.01 Elevation of levels of liver transaminase levels; E87.6 Hypokalemia; E83.42 Hypomagnesemia; E86.0 Dehydration; E78.2 Mixed hyperlipidemia | CPT/HCPCS: 99222; 99232; 99239; 99499 ==

== ENCOUNTER → 2025-04-09 14:31 | Outpatient (BNV) | payer OTHER, SELFPAY | PROVIDERS: Admitting Provider Nurse Practitioner Acute Care; Emergency Provider Emergency Medicine; Visit Provider Nurse Practitioner Psychiatric/Mental Health | DX: F10.20 Alcohol dependence, uncomplicated (principal) | CPT/HCPCS: 99222 ==